=== PATIENT | female | born 1930 | race Caucasian/White ===

== ENCOUNTER 2017-05-22 12:30 | Inpatient (IN) | payer OTHER, MEDICARE ==
--- NOTE | 2017-05-22 12:56 | PDOC ---
History of Present Illness - General Chief Complaint: Irregular Heart Beat Stated Complaint: A-FIB & SHORT OF BREATH Time Seen by Provider: 05/22/17 12:50 History Source: Patient Exam Limitations: No Limitations Past History - Past Medical History Allergies/Adverse Reactions: Allergies Allergy/AdvReac Type Severity Reaction Status Date / Time No Known Allergies Allergy Verified 05/22/17 14:14 Home Medications: Ambulatory Orders Aspirin [Geno Chewable] 81 mg PO HS 05/22/17 Fluoxetine HCl [Prozac] 10 mg PO DAILY 05/22/17 Losartan Potassium [Cozaar -] 50 mg PO HS 05/22/17 Anemia: No Asthma: Yes (DX IN HER 30'S-STABLE) Cancer: Yes (LEFT BREAST CA-DX 2009) Cardiac Disorders: Yes (VALVE DISEASE) CVA: No COPD: No CHF: No Dementia: No Diabetes: No GI Disorders: No Disorders: No HTN: Yes Hypercholesterolemia: Yes (DX 2009) Liver Disease: No Seizures: No Thyroid Disease: Yes (hypo) - Surgical History Abdominal Surgery: Yes Appendectomy: No Cardiac Surgery: Yes (VALVE REPLACED X 2-MECHANICAL -1995 THEN REPLACED FLESH- 2014) Cholecystectomy: Yes (LAP CHOLEY-2011) Lung Surgery: No Neurologic Surgery: No Orthopedic Surgery: No - Immunization History Td Vaccination: Yes TDAP Vaccination: No Immunization Up to Date: Yes - Suicide/Smoking/Psychosocial Hx Smoking Status: No Smoking History: Never smoked Have you smoked in the past 12 months: No Number of Cigarettes Smoked Daily: 0 If you are a former smoker, when did you quit?: 1980 Hx Alcohol Use: No Drug/Substance Use Hx: No Substance Use Type: None Hx Substance Use Treatment: No ED Treatment Course - LABORATORY CBC & Chemistry Diagram: 05/22/17 12:55 05/22/17 12:55 *DC/Admit/Observation/Transfer Diagnosis at time of Disposition: Congestive heart failure Qualifiers: Congestive heart failure type: unspecified congestive heart failure type Congestive heart failure chronicity: acute on chronic Qualified Code(s): I50.9 - Heart failure, unspecified - Discharge Dispostion Condition at time of disposition: Good Admit: Yes Decision to Admit order Date/Time: 05/22/17 16:07
[2017-05-22 13:15] LABS: BASOPHIL 0.8 % (0-2.0); EOSINOPHIL 0.9 % (0-4.5); MCH 28.2 pg (25.7-33.7); MCHC 32.4 g/dl (32.0-36.0); MEAN CELL VOLUME 87.1 fl (80-96); MEAN PLT VOLUME 8.1 fl (7.5-11.1); NEUTROPHILS 83.6 % (42.8-82.8); PLATELET COUNT 187 K/MM3 (134-434); RDW 15.5 % (11.6-15.6); WHITE BLOOD COUNT 4.9 K/mm3 (4.0-10.8)
[2017-05-22 13:30] LABS: ACTIVATED PTT 28.7 SECONDS (24.0-38.9)
[2017-05-22 13:33] LABS: ALBUMIN 3.6 g/dl (3.5-5.0); ALK PHOS 56 U/L (32-92); ANION GAP 5 (8-16); BILIRUBIN,TOTAL 0.4 mg/dl (0.2-1.0); CALCIUM 9.4 mg/dl (8.4-10.2); CO2 29 mmol/L (22-28); CREATININE 0.8 mg/dl (0.6-1.3); GLUCOSE,RANDOM 104 mg/dl (74-106); SGOT/AST 24 U/L (10-42); SGPT/ALT 17 U/L (10-40); TOT PROT 7.1 g/dl (6.4-8.3)
[2017-05-22 13:35] LABS: INR 1.22 (0.82-1.09); PROTHROMBIN TIME (PATIENT) 13.6 SEC (10.2-13.0)
[2017-05-22 15:28] LABS: CPK 3 IU/L (26-192); TROPONIN I (DFP) < 0.03 ng/ml (0.03-0.50)
[2017-05-22] MEDS ORDERED: FUROSEMIDE 40 MG/4 ML INJECTABLE VIAL IVPB ONE (15:38)
[2017-05-22] MEDS ORDERED: FUROSEMIDE 40 MG/4 ML INJECTABLE VIAL ONE (15:42)
[2017-05-22] MEDS ORDERED: ALBUTEROL SO4 0.083% IH SOL 2.5 MG/3 ML VIAL.NEB. NEB PRN (16:10)
[2017-05-22] MEDS ORDERED: ALBUTEROL SO4 18 GM HFA INHALER IH PRN (16:15)
[2017-05-22 17:01] LABS: PH,URINE 6.5 (4.5-8); URINE APPEARANCE Clear; URINE BILIRUBIN Negative (NEGATIVE); URINE BLOOD Trace-lysed (NEGATIVE); URINE COLOR YELLOW; URINE GLUCOSE (UA) Negative (NEGATIVE); URINE KETONE Negative (NEGATIVE); URINE LEUK ESTERASE 2+ (NEGATIVE); URINE NITRITE Negative (NEGATIVE); URINE PROTEIN Negative (NEGATIVE); URINE UROBILINOGEN 0.2 (0.2-1.0)
[2017-05-22 17:21] VITALS: BMI 25.1
[2017-05-22 17:41] LABS: URINE BACTERIA FEW /hpf (NEGATIVE)
[2017-05-22] MEDS: ATORVASTATIN CA 10 MG TABLET (FP) PO SCH (21:29)
[2017-05-22] MEDS: ASPIRIN 81 MG CHEWABLE TABLETS PO SCH (21:29)
[2017-05-22] MEDS ORDERED: HEPARIN NA (PORCINE) 5,000 UNITS/ML 1ML VIAL SQ SCH (22:00)
[2017-05-22] MEDS ORDERED: LOSARTAN POTASSIUM 50 MG TABLET (FP) PO SCH (22:00)
--- NOTE | 2017-05-22 22:23 | HP ---
CHIEF COMPLAINT: SOB PCP: Valerie; Cardio: Chava ([facility] [place]) HISTORY OF PRESENT ILLNESS: This is an 87 year old female with a past medical history significant for CHF, pHTN, HTN, asthma who presented to the ED from her PCP office with SOB, MOE x 4- 5 days. She denies chest pain, palpitations. She reports edema of ankles, L>R which is typical when she develops edema. She denies nausea, vomiting, diarrhea. ER course was notable for: (1) CXR with B/L pleural effusion (2) trop neg (3) BNP 2403 Recent Travel: pt denies Past Medical History Mitral valve disease hyperlipidemia hypertension CHF asthma breast ca Anxiety Past Surgical History Lumpectomy 2010 Cholecystectomy 2012 Aortic dissection repair 2006 Mitral valve surgery x 2 (replacement of infected valve) 2005(mechanical), 2014( bioprosthetic) Cyst removal from neck B/L cataract removal Social History denies tobacco occ glass of wine denies rec drugs Famhx Dad- colon ca, Leukemia GrandMother- Breast ca Aunt - Breast ca Allergies No Known Allergies Allergy (Verified 05/22/17 14:14) Home Medications 3 Medication Instructions Recorded Aspirin [Geno Chewable] 81 mg PO HS 05/22/17 Losartan Potassium [Cozaar -] 50 mg PO HS 05/22/17 Albuterol MDI 2 puff Q4H PRN 05/22/17 Synthroid 25 mcg PO daily 05/22/17 Advair 250/50 1 puff BID 05/22/17 zocor 20 mg po HS 05/22/17 REVIEW OF SYSTEMS CONSTITUTIONAL: Absent: fever, chills, diaphoresis, generalized weakness, malaise, loss of appetite, weight change HEENT: Absent: rhinorrhea, nasal congestion, throat pain, throat swelling, difficulty swallowing, mouth swelling, ear pain, eye pain, visual changes CARDIOVASCULAR: Absent: chest pain, syncope, palpitations, irregular heart rate, lightheadedness , peripheral edema RESPIRATORY: Present: shortness of breath, dyspnea with exertion Absent: cough, orthopnea, wheezing, stridor, hemoptysis GASTROINTESTINAL: Absent: abdominal pain, abdominal distension, nausea, vomiting, diarrhea, constipation, melena, hematochezia GENITOURINARY: Absent: dysuria, frequency, urgency, hesitancy, hematuria, flank pain, genital pain MUSCULOSKELETAL: Absent: myalgia, arthralgia, joint swelling, back pain, neck pain SKIN: Absent: rash, itching, pallor HEMATOLOGIC/IMMUNOLOGIC: Absent: easy bleeding, easy bruising, lymphadenopathy, frequent infections ENDOCRINE: Absent: unexplained weight gain, unexplained weight loss, heat intolerance, cold intolerance NEUROLOGIC: Absent: headache, focal weakness or paresthesias, dizziness, unsteady gait, seizure, mental status changes, bladder or bowel incontinence PSYCHIATRIC: Absent: anxiety, depression, suicidal or homicidal ideation, hallucinations. PHYSICAL EXAMINATION Vital Signs - 24 hr 3 05/22/17 05/22/17 05/22/17 17:02 17:08 20:21 Temperature 98.6 F 97.7 F Pulse Rate 103 H 71 Respiratory 22 19 19 Rate Blood Pressure 156/85 156/85 O2 Sat by Pulse 100 100 100 Oximetry (%) GENERAL: Awake, alert, and fully oriented, in no acute distress. HEAD: Normal with no signs of trauma. EYES: Pupils equal, round and reactive to light, extraocular movements intact, sclera anicteric, conjunctiva clear. No lid lag. EARS, NOSE, THROAT: Ears normal, nares patent, oropharynx clear without exudates. Moist mucous membranes. NECK: Normal range of motion, supple without lymphadenopathy, JVD, or masses. LUNGS: No wheezes. No accessory muscle use. Diminished bilat bases, crackles mid left lung field, clear upper HEART: Regular rate and rhythm, normal S1 and S2 without murmur, rub or gallop. ABDOMEN: Soft, nontender, not distended, normoactive bowel sounds, no guarding, no rebound, no masses. No hepatomegaly or splenomegaly. MUSCULOSKELETAL: Normal range of motion at all joints. No bony deformities or tenderness. No CVA tenderness. UPPER EXTREMITIES: 2+ pulses, warm, well-perfused. No cyanosis. No clubbing. No peripheral edema. LOWER EXTREMITIES: 2+ pulses, warm, well-perfused. No calf tenderness. Tr edema RLL, 1+ left NEUROLOGICAL: Cranial nerves II-XII intact. Normal speech. Normal gait. PSYCHIATRIC: Cooperative. Good eye contact. Appropriate mood and affect. SKIN: Warm, dry, normal turgor, no rashes or lesions noted, normal capillary refill. Laboratory Results - last 24 hr 3 05/22/17 05/22/17 05/22/17 05/22/17 12:55 12:55 12:55 14:47 WBC 4.9 RBC 4.45 Hgb 12.6 Hct 38.8 MCV 87.1 MCH 28.2 MCHC 32.4 RDW 15.5 D Plt Count 187 MPV 8.1 Neutrophils % 83.6 H Lymphocytes % 8.5 D Monocytes % 6.2 Eosinophils % 0.9 Basophils % 0.8 PT with INR 13.6 H INR 1.22 PTT (Actin FS) 28.7 Sodium 140 Potassium 3.9 Chloride 106 Carbon Dioxide 29 H Anion Gap 5 L BUN 21 H D Creatinine 0.8 Creat Clearance w eGFR > 60 Random Glucose 104 Calcium 9.4 Total Bilirubin 0.4 D AST 24 ALT 17 Alkaline Phosphatase 56 D Creatine Kinase 3 L Troponin I < 0.03 L B-Natriuretic Peptide 2403.45 H Total Protein 7.1 Albumin 3.6 Urine Color Urine Appearance Urine pH Ur Specific [place] Urine Protein Urine Glucose (UA) Urine Ketones Urine Blood Urine Nitrite Urine Bilirubin Urine Urobilinogen Urine RBC Urine WBC Urine Bacteria Blood Type A POSITIVE Antibody Screen Negative 3 Urine Color Yellow 05/22/17 16:30 Urine Appearance Clear 05/22/17 16:30 Urine pH 6.5 (4.5-8) 05/22/17 16:30 Ur Specific [place] 1.010 (1.005-1.025) 05/22/17 16:30 Urine Protein Negative (NEGATIVE) 05/22/17 16:30 Urine Glucose (UA) Negative (NEGATIVE) 05/22/17 16:30 Urine Ketones Negative (NEGATIVE) 05/22/17 16:30 Urine Blood Trace-lysed (NEGATIVE) H 05/22/17 16:30 Urine Nitrite Negative (NEGATIVE) 05/22/17 16:30 Urine Bilirubin Negative (NEGATIVE) 05/22/17 16:30 Urine RBC 2-3 /hpf (0-3) 05/22/17 16:30 Urine WBC 10-15 (3-5) 05/22/17 16:30 Urine Bacteria Few /hpf (NEGATIVE) 05/22/17 16:30 ECG Afib with RVR with PVCs vent rate 109, QTC 490 Inverted T lead I, V6, flattened V5 Radiology Results Portable chest x-ray, AP sitting Since 12/19/2015, the cardiac silhouette remains slightly enlarged. Consolidation /airspace disease with small bilateral pleural effusion IMPRESSION: Slight worsening bibasal consolidation/airspace disease and persistent small bilateral pleural effusion Reported By: Humberto Chau MD 05/22/17 3435 ASSESSMENT/PLAN: 87yF with PMH CHF with severely reduced LVSF, HTN, HLD, pHTN, Bioprosthetic mitral valve, asthma, L breast CA s/p lumpectomy, hypothyroidism presented to the ED with SOB x 4-5 days, worse with activity. She is being admitted for CHF exacerbation. CHF exacerbation, systolic - cont lasix 40mg IVP daily - daily weights - cardiology consult - trend troponins, r/o ischemic event that precipitated exacerbation - echo done in ED Afib with RVR-new onset? - pt doesnt recall ever having an irregular heart rate in past - noted on ECG, now in 70s/80s, if HR goes up would start metoprolol. - start lovenox for now. pt will likely need coumadin given valvular disease. Chadsvasc2 score 6 - cont to monitor on tele - cardio consult HTN - cont home cozaar HLD - home simvastatin changed to formulary lipitor Resp: asthma - home advair changed to formulary symbicort - albuterol neb q4h PRN wheezing hypothyroidism - cont home synthroid DVT PPX - on full dose lovenox FEN - Defer IVF, tolerating po and currently appears overloaded - BMP in am - low sodium diet as tolerated Dispo: Pt currently requires inpatient management of her emergent condition. Addendum: 12AM HR up into 140s when pt got up to go to bathroom. Will start metoprolol 25mg x 1 , if HR still elevated with activity @ 6am, will give additional 25mg. Visit type - Emergency Visit Emergency Visit: Yes ED Registration Date: 05/22/17 Care time: The patient presented to the Emergency Department on the above date and was hospitalized for further evaluation of their emergent condition. - New Patient This patient is new to me today: Yes Date on this admission: 05/23/17 - Critical Care Critical Care patient: No
[2017-05-22] MEDS: BUDESONIDE/FORMETEROL FUMARATE 80/4.5 mcg INHALER IH SCH (23:27)
[2017-05-22] MEDS ORDERED: METOPROLOL TARTRATE 25 MG TABLET (FP) PO ONE (23:45)
[2017-05-22] MEDS: ENOXAPARIN NA (PORCINE) 60 MG/0.6 ML DISP.SYRIN SQ SCH (23:53)
[2017-05-23] MEDS: LEVOTHYROXINE NA 25 MCG TABLET (FP) PO SCH (06:22)
[2017-05-23 07:09] LABS: TROPONIN I 0.02 ng/ml (0.00-0.05)
[2017-05-23 07:45] LABS: BASOPHIL 0.7 % (0-2.0); MCH 28.4 pg (25.7-33.7); MCHC 32.3 g/dl (32.0-36.0); MEAN CELL VOLUME 87.9 fl (80-96); MEAN PLT VOLUME 8.1 fl (7.5-11.1); NEUTROPHILS 77.3 % (42.8-82.8); PLATELET COUNT 167 K/MM3 (134-434); RDW 15.5 % (11.6-15.6); WHITE BLOOD COUNT 3.6 K/mm3 (4.0-10.8)
[2017-05-23 08:05] LABS: ALBUMIN 3.2 g/dl (3.5-5.0); ALK PHOS 54 U/L (32-92); ANION GAP 2 (8-16); BILIRUBIN,TOTAL 0.7 mg/dl (0.2-1.0); CALCIUM 9.2 mg/dl (8.4-10.2); CO2 33 mmol/L (22-28); CREATININE 0.8 mg/dl (0.6-1.3); GLUCOSE,RANDOM 95 mg/dl (74-106); MAGNESIUM 1.8 mg/dL (1.8-2.4); SGOT/AST 19 U/L (10-42); SGPT/ALT 17 U/L (10-40); TOT PROT 6.3 g/dl (6.4-8.3)
--- NOTE | 2017-05-23 08:27 | PN ---
Physical Exam: SUBJECTIVE: Patient seen and examined, ambulatory at bedside, HR noted to be 120 's with shortness of breath. OBJECTIVE: patient is a 87 y/o female with a past medical history of hypertension, hyperlipidemia, systolic congestive heart failure. asthma, breast ca, anxiety, Lumpectomy 2009, Cholecystectomy 2011, Aortic dissection repair 2005, Mitral valve surgery x 2 (replacement of infected valve) 2005(mechanical) , 2014(bioprosthetic). Patient was admitted from the emergency department for new onset afib and systolic congestive heart failure. Vital Signs Period Temp Pulse Resp BP Sys/Goldberg Pulse Ox Last 24 Hr 97.7 F-98.6 F 71-103 18-22 123-156/77-88 96-100 GENERAL: The patient is awake, alert, and fully oriented, in no acute distress. HEAD: Normal with no signs of trauma. EYES: PERRL, extraocular movements intact, sclera anicteric, conjunctiva clear. No ptosis. ENT: Ears normal, nares patent, oropharynx clear without exudates, moist mucous membranes. NECK: Trachea midline, full range of motion, supple. LUNGS: Breath sounds equal, clear to auscultation bilaterally to apexes, diminished to bases, no wheezes, no crackles, no accessory muscle use. HEART: irregular rate and rhythm, S1, S2 without murmur, rub or gallop. ABDOMEN: Soft, nontender, nondistended, normoactive bowel sounds, no guarding, no rebound, no hepatosplenomegaly, no masses. EXTREMITIES: 2+ pulses, warm, well-perfused, right lower extremity + 1 left lower extremity + 2 NEUROLOGICAL: Cranial nerves II through XII grossly intact. Normal speech, gait not observed. PSYCH: Normal mood, normal affect. SKIN: Warm, dry, normal turgor, no rashes or lesions noted Laboratory Results - last 24 hr 05/22/17 05/23/17 05/23/17 23:30 00:01 06:30 WBC 3.6 L RBC 4.27 Hgb 12.1 Hct 37.5 MCV 87.9 MCH 28.4 MCHC 32.3 RDW 15.5 Plt Count 167 MPV 8.1 Neutrophils % 77.3 Lymphocytes % 11.3 D Monocytes % 8.7 Eosinophils % 2.0 D Basophils % 0.7 Sodium Potassium Chloride Carbon Dioxide Anion Gap BUN Creatinine Creat Clearance w eGFR Random Glucose Calcium Phosphorus Magnesium Total Bilirubin AST ALT Alkaline Phosphatase Creatine Kinase 75 Cancelled Troponin I 0.02 Cancelled Total Protein Albumin 05/23/17 06:30 WBC RBC Hgb Hct MCV MCH MCHC RDW Plt Count MPV Neutrophils % Lymphocytes % Monocytes % Eosinophils % Basophils % Sodium 140 Potassium 4.3 Chloride 105 Carbon Dioxide 33 H Anion Gap 2 L BUN 18 Creatinine 0.8 Creat Clearance w eGFR > 60 Random Glucose 95 Calcium 9.2 Phosphorus 4.0 Magnesium 1.8 Total Bilirubin 0.7 D AST 19 D ALT 17 Alkaline Phosphatase 54 Creatine Kinase Troponin I Total Protein 6.3 L Albumin 3.2 L Active Medications Generic Name Dose Route Start Last Admin Trade Name Freq PRN Reason Stop Dose Admin Albuterol Sulfate 1 amp 05/22/17 16:10 Ventolin 0.083% Nebulizer Soln - NEB Q4H PRN WHEEZING Aspirin 81 mg 05/22/17 22:00 05/22/17 21:29 Asa - PO 81 mg HS ALE Administration Atorvastatin Calcium 10 mg 05/22/17 22:00 05/22/17 21:29 Lipitor - PO 10 mg HS ALE Administration Budesonide/Formoterol Fumarate 2 puff 05/22/17 22:00 05/22/17 23:27 Symbicort 80/4.5mcg - IH 2 puff BID ALE Administration Enoxaparin Sodium 60 mg 05/22/17 23:45 05/22/17 23:53 Lovenox - SQ 60 mg BID ALE Administration Furosemide 40 mg 05/23/17 10:00 Lasix Injection - IVPUSH DAILY ALE Levothyroxine Sodium 25 mcg 05/23/17 07:00 05/23/17 06:22 Synthroid - PO 25 mcg DAILY@0700 ALE Administration Losartan Potassium 50 mg 05/22/17 22:00 05/22/17 21:30 Cozaar - PO 50 mg HS ALE Administration ASSESSMENT/PLAN: 1) card afib with rvr - pt and daughter deny any prior history of afib, HR noted to be elevated in 120 's, lopressor 25mg ordered - echo reviewed lvef 35-40%, moderate global hypokinesis - continue lovenox 60mg sq bid - appreciate cardiology input acute on chronic systolic congestive heart failure - chest xray reviewed and compared from yesterday, mild improvement of bilateral pleural effusions - continue lasix 40mg ivp, pt weight is down 0.7kg - daily weights and I&O hypertension - continue cozaar since patient has history of dilated cardiomyopathy hyperlipidemia - continue lipitor (subsitute for simvastin) 2) pulm asthma - no acute excerbation at this time, continue symbicort and prn albuterol nebulizers 3) endo hypothyroidism - continue synthroid home dose for now, pending tsh and t4 f/e/n - low sodium diet - replete electrolytes prn ppx - continue lovenox - physical therapy - pepcid - oob - scd Dispo: Pt currently requires inpatient management of her emergent condition. Problem List - Problems (1) Dilated cardiomyopathy Code(s): I42.0 - DILATED CARDIOMYOPATHY (2) Acute on chronic systolic (congestive) heart failure Code(s): I50.23 - ACUTE ON CHRONIC SYSTOLIC (CONGESTIVE) HEART FAILURE (3) Afib Code(s): I48.91 - UNSPECIFIED ATRIAL FIBRILLATION Visit type - Emergency Visit Emergency Visit: Yes ED Registration Date: 05/22/17 Care time: The patient presented to the Emergency Department on the above date and was hospitalized for further evaluation of their emergent condition. - New Patient This patient is new to me today: No - Critical Care Critical Care patient: No - Discharge Referral Referred to [facility] Med [facility] No
[2017-05-23 08:50] LABS: TROPONIN I 0.03 ng/ml (0.00-0.05)
[2017-05-23] MEDS: ENOXAPARIN NA (PORCINE) 60 MG/0.6 ML DISP.SYRIN SQ SCH ×2 (09:54→21:54)
[2017-05-23] MEDS ORDERED: PT OWN MED DRAWER 7, Y5N ONE ×2 (09:59→21:14)
[2017-05-23] MEDS ORDERED: FUROSEMIDE 40 MG/4 ML INJECTABLE VIAL IVPUSH SCH (10:00)
[2017-05-23] MEDS ORDERED: FLUoxetine HCL 10 MG CAPSULE (FP) PO SCH (10:00)
[2017-05-23] MEDS: BUDESONIDE/FORMETEROL FUMARATE 80/4.5 mcg INHALER IH SCH ×2 (10:05→21:54)
[2017-05-23] MEDS ORDERED: METOPROLOL SUCCINATE 25 MG TAB.SR.24H (FP) PO SCH (13:15)
[2017-05-23 13:25] LABS: THYROXINE (T4) 6.8 ug/dl (4.8-13.9)
[2017-05-23 13:31] LABS: THYROID STIMULATING HORMONE 3.16 uIU/ml (0.358-3.74)
--- NOTE | 2017-05-23 14:01 | CONSULT ---
Consult Consult Specialty:: Cardiology Referred by:: Dorinda Andrew Reason for Consultation:: CHF and new afib - History of Present Illness Chief Complaint: MOE History of Present Illness: 87 yo female with hx of HTN, HLD, aortic dissection -> repaired in 03/06, MR -> mechanical MVR in 05/07 -> IE -> redo bio-MVR in 09/[address] Lofton at [facility], asthma with chronic MOE, intermittent SEAN -. lasix prn, CHF -. admitted here in 06/15 -> EF was 26% -> here with 5 days of worsening MOE and SEAN. She denies CP, palpitations or dizziness She first went into Dr Padilla's office -. found in afib -. sent here here. Found with evidence of CHF -. IV diuretics. Currently a bit better. 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 Right diaphragm paralysis following thoracotomy - Past Surgical History Past Surgical History: Yes: Cataract Removal (B/L ), Cholecystectomy (@012) Additional Surgical History: Aortic dissection repair 2005. Lumpectomy 2009. Cyst removal from neck - Alcohol/Substance Use Hx Alcohol Use: Yes (rarely) - Smoking History Smoking history: Former smoker (smoked socially but second hand smoking from ) Have you smoked in the past 12 months: No Aproximately how many cigarettes per day: 0 If you are a former smoker, when did you quit?: 1986 - Social History Usual Living Arrangement: Alone ( for 30 yrs) Home Medications - Allergies Allergies/Adverse Reactions: Allergies Allergy/AdvReac Type Severity Reaction Status Date / Time No Known Allergies Allergy Verified 05/22/17 14:14 - Home Medications Home Medications: Ambulatory Orders Aspirin [Geno Chewable] 81 mg PO HS 05/22/17 Fluoxetine HCl [Prozac] 10 mg PO DAILY 05/22/17 Losartan Potassium [Cozaar -] 50 mg PO HS 05/22/17 Family Disease History - Family Disease History Family History: Unremarkable Review of Systems - Review of Systems Constitutional: reports: Other (fatigue) Eyes: reports: No Symptoms HENT: reports: No Symptoms Neck: reports: No Symptoms Cardiovascular: reports: Edema, Shortness of Breath Respiratory: reports: SOB on Exertion Gastrointestinal: reports: No Symptoms Genitourinary: reports: No Symptoms Integumentary: reports: No Symptoms Neurological: reports: No Symptoms Endocrine: reports: No Symptoms Psychiatric: reports: Anxiety Physical Exam Vital Signs: Vital Signs Temperature 98 F 05/23/17 09:39 Pulse Rate 86 05/23/17 09:39 Respiratory Rate 20 05/23/17 09:39 Blood Pressure 102/52 05/23/17 09:39 O2 Sat by Pulse Oximetry (%) 96 05/23/17 07:45 Constitutional: Yes: No Distress Eyes: Yes: Conjunctiva Clear HENT: Yes: Atraumatic Neck: Yes: Supple Cardiovascular: Yes: Pulse Irregular, Murmur Respiratory: Yes: Other (decresaed at bases) Gastrointestinal: Yes: Normal Bowel Sounds, Soft. No: Tenderness Edema: Yes (trace, L> R (baseline)) Peripheral Pulses WNL: Yes Neurological: Yes: Alert, Oriented Psychiatric: Yes: Alert, Oriented Labs: CBC, BMP 05/23/17 06:30 05/23/17 06:30 Imaging - Results Chest X-ray: Report Reviewed, Image Reviewed EKG: Report Reviewed, Image Reviewed (atrial fibrillation, NSST-T changes) Other: Other (Echo (05/22/17) -> Nl Lv size wit EF 35-40%. global HK. Mild conc LVH . Mild RV dysfunction. Mod AV scl with mod AI. Bio MVR with possible stenosis . Midl TR. Tr PI. Mild PHTN) Assessment/Plan 87 yo female with the above history, here with CHF and new onset afib. The etiology of the CHF is likely combined systolic and diastolic in setting of rapid afib. There in no evidence of ACS HR better, but goes up when ambulates. TSH normal Patient is high risk and should be on chronic AC - needs coumadin (not a newer agent) given the valvular nature of her afib -> INR goal 2-3 Diuresing -. repeat CXR today is better Would benefit from coreg and aldactone Rec: Continue lovenox Start coumadin -> INR goal 2-5 -. coumadin 10 mg today -. 5mg daily Continue lasix 40 IV for now -> consider switching to PO lasix 40 tomorrow based on clinical status D/c metoprolol Start coreg 6.25 bid -. titrate up prn Aldactone 25 daily Continue cozaar, but reduce to 25 daily, as BP may not tolerate t e50 mg given the coreg/aldactone Cont ASA and lipitor Thanks! We'll follow! D/w Dr Kyler Larsen ([phone])
[2017-05-23] MEDS ORDERED: LOSARTAN POTASSIUM 50 MG TABLET (FP) PO SCH (15:03)
[2017-05-23] MEDS ORDERED: WARFARIN NA 10 MG TABLET (FP) PO ONE (15:04)
[2017-05-23] MEDS: MAGNESIUM OXIDE 400 MG TABLET (FP) PO SCH (21:53)
[2017-05-23] MEDS: FAMOTIDINE 20 MG TABLET PO SCH (21:54)
[2017-05-23] MEDS: CARVEDILOL 6.25 MG TABLET (FP) PO SCH (21:54)
[2017-05-23] MEDS: ATORVASTATIN CA 10 MG TABLET (FP) PO SCH (21:54)
[2017-05-23] MEDS: ASPIRIN 81 MG CHEWABLE TABLETS PO SCH (21:54)
[2017-05-23] MEDS: LOSARTAN POTASSIUM 25 MG TABLET PO SCH (21:54)
[2017-05-24] MEDS: LEVOTHYROXINE NA 25 MCG TABLET (FP) PO SCH (06:24)
[2017-05-24 07:38] LABS: BASOPHIL 0.5 % (0-2.0); EOSINOPHIL 1.3 % (0-4.5); MCH 28.7 pg (25.7-33.7); MCHC 32.6 g/dl (32.0-36.0); MEAN PLT VOLUME 7.9 fl (7.5-11.1); NEUTROPHILS 75.5 % (42.8-82.8); PLATELET COUNT 156 K/MM3 (134-434); RDW 14.9 % (11.6-15.6); WHITE BLOOD COUNT 3.8 K/mm3 (4.0-10.8)
[2017-05-24 08:11] LABS: ANION GAP 4 (8-16); CALCIUM 9.1 mg/dl (8.4-10.2); CO2 34 mmol/L (22-28); CREATININE 0.8 mg/dl (0.6-1.3); GLUCOSE,RANDOM 96 mg/dl (74-106); MAGNESIUM 1.9 mg/dL (1.8-2.4); PHOSPHOROUS 4.1 mg/dl (2.5-4.6)
[2017-05-24] MEDS ORDERED: PT OWN MED DRAWER 7, Y5N ONE ×2 (10:09→21:02)
[2017-05-24] MEDS: BUDESONIDE/FORMETEROL FUMARATE 80/4.5 mcg INHALER IH SCH ×2 (10:23→21:06)
[2017-05-24] MEDS: ENOXAPARIN NA (PORCINE) 60 MG/0.6 ML DISP.SYRIN SQ SCH ×2 (10:23→21:06)
[2017-05-24] MEDS: FAMOTIDINE 20 MG TABLET PO SCH ×2 (10:23→21:05)
[2017-05-24] MEDS: CARVEDILOL 6.25 MG TABLET (FP) PO SCH ×2 (10:24→21:05)
[2017-05-24] MEDS: MAGNESIUM OXIDE 400 MG TABLET (FP) PO SCH ×2 (10:24→21:06)
[2017-05-24] MEDS: SPIRONOLACTONE 25 MG TABLET (FP) PO SCH (10:26)
--- NOTE | 2017-05-24 10:26 | PN ---
Physical Exam: SUBJECTIVE: Patient seen and examined. Feeling better. Only with mild dyspnea. No chest pain. Has been able to ambulate to bathroom. OBJECTIVE: Vital Signs Period Temp Pulse Resp BP Sys/Goldberg Pulse Ox Last 24 Hr 97.7 F-98.3 F 75-86 17-20 99-150/56-87 91-100 GENERAL: The patient is awake, alert, and fully oriented, in no acute distress. HEAD: Normal with no signs of trauma. EYES: PERRL, extraocular movements intact, sclera anicteric, conjunctiva clear. No ptosis. ENT: Ears normal, nares patent, oropharynx clear without exudates, moist mucous membranes. NECK: Trachea midline, full range of motion, supple. LUNGS: Rales at bases. No tachypnea or accessory muscle use. HEART: Irregular rhythm, systolic murmur, S1, S2. ABDOMEN: Soft, nontender, nondistended, normoactive bowel sounds, no guarding, no rebound, no hepatosplenomegaly, no masses. EXTREMITIES: 2+ pulses, warm, well-perfused, trace LE edema. NEUROLOGICAL: Cranial nerves II through XII grossly intact. Normal speech, gait not observed. PSYCH: Normal mood, normal affect. SKIN: Warm, dry, normal turgor, no rashes or lesions noted Laboratory Results - last 24 hr 05/23/17 05/24/17 05/24/17 06:30 07:20 07:20 WBC 3.8 L RBC 4.18 Hgb 12.0 Hct 36.8 MCV 88.0 MCH 28.7 MCHC 32.6 RDW 14.9 Plt Count 156 MPV 7.9 Neutrophils % 75.5 Lymphocytes % 11.6 Monocytes % 11.1 H Eosinophils % 1.3 Basophils % 0.5 Sodium 138 Potassium 3.8 Chloride 100 Carbon Dioxide 34 H Anion Gap 4 L BUN 23 H D Creatinine 0.8 Random Glucose 96 Calcium 9.1 Phosphorus 4.1 Magnesium 1.9 TSH 3.16 D Active Medications Generic Name Dose Route Start Last Admin Trade Name Freq PRN Reason Stop Dose Admin Albuterol Sulfate 1 amp 05/22/17 16:10 Ventolin 0.083% Nebulizer Soln - NEB Q4H PRN WHEEZING Aspirin 81 mg 05/22/17 22:00 05/23/17 21:54 Asa - PO 81 mg HS ALE Administration Atorvastatin Calcium 10 mg 05/22/17 22:00 05/23/17 21:54 Lipitor - PO 10 mg HS ALE Administration Budesonide/Formoterol Fumarate 2 puff 05/22/17 22:00 05/24/17 10:23 Symbicort 80/4.5mcg - IH 2 puff BID ALE Administration Carvedilol 6.25 mg 05/23/17 22:00 05/24/17 10:24 Coreg - PO 6.25 mg BID ALE Administration Enoxaparin Sodium 60 mg 05/22/17 23:45 05/24/17 10:23 Lovenox - SQ 60 mg BID ALE Administration Famotidine 20 mg 05/23/17 22:00 05/24/17 10:23 Pepcid - PO 20 mg BID ALE Administration Furosemide 40 mg 05/24/17 10:30 Lasix - PO DAILY [facility] Levothyroxine Sodium 25 mcg 05/23/17 07:00 05/24/17 06:24 Synthroid - PO 25 mcg DAILY@0700 [facility] Administration Losartan Potassium 25 mg 05/23/17 22:00 05/23/17 21:54 Cozaar - PO 25 mg HS ALE Administration Magnesium Oxide 400 mg 05/23/17 22:00 05/24/17 10:24 Mag-Ox - PO 400 mg BID [facility] Administration Spironolactone 25 mg 05/24/17 10:00 Aldactone - PO DAILY [facility] Warfarin Sodium 5 mg 05/24/17 18:00 Coumadin - PO DAILY@1800 ALE CXR 05/22: Pulm vascular congestion, small pleural effusion, bibasilar consolidation. 05/23: Improvement. Echo 05/22: -> Nl Lv size wit EF 35-40%. global HK. Mild conc LVH . Mild RV dysfunction. Mod AV scl with mod AI. 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 Midl TR. Tr PI. Mild PHTN. ASSESSMENT/PLAN: 1. New onset Afib with RVR -Continue warfarin with Lovenox bridge -Continue Coreg -Aldactone ordered but so far we have not been able to give it because of low SBP, despite decreasing dose of Cozaar -Weight down 1kg since admission -Cardiology following 2. CHF -Change from IV to PO Lasix today 3. CAD -Continue ASA, Lipitor 4. HTN -As above 5. Asthma -Continue Symbicort -Prn nebulizers 6. Hypothyroidism -Continue Synthroid 7. F/E/N -Low sodium diet 8. Ppx -Lovenox/warfarin -PT -No indication for GI ppx Dispo: Pt currently requires inpatient management of her emergent condition.
[2017-05-24] MEDS: FUROSEMIDE 40 MG TABLET (FP) PO SCH (10:27)
--- NOTE | 2017-05-24 11:21 | PN ---
Progress Note, Physician Chief Complaint: Feels better - Current Medication List Current Medications: Active Medications Albuterol Sulfate (Ventolin 0.083% Nebulizer Soln -) 1 amp NEB Q4H PRN PRN Reason: WHEEZING Aspirin (Asa -) 81 mg PO [facility] Last Admin: 05/23/17 21:54 Dose: 81 mg Atorvastatin Calcium (Lipitor -) 10 mg PO HS [facility] Last Admin: 05/23/17 21:54 Dose: 10 mg Budesonide/Formoterol Fumarate (Symbicort 80/4.5mcg -) 2 puff IH BID [facility] Last Admin: 05/24/17 10:23 Dose: 2 puff Carvedilol (Coreg -) 6.25 mg PO BID [facility] Last Admin: 05/24/17 10:24 Dose: 6.25 mg Enoxaparin Sodium (Lovenox -) 60 mg SQ BID [facility] Last Admin: 05/24/17 10:23 Dose: 60 mg Famotidine (Pepcid -) 20 mg PO BID [facility] Last Admin: 05/24/17 10:23 Dose: 20 mg Furosemide (Lasix -) 40 mg PO DAILY [facility] Last Admin: 05/24/17 10:27 Dose: 40 mg Levothyroxine Sodium (Synthroid -) 25 mcg PO DAILY@0700 [facility] Last Admin: 05/24/17 06:24 Dose: 25 mcg Losartan Potassium (Cozaar -) 25 mg PO [facility] Last Admin: 05/23/17 21:54 Dose: 25 mg Magnesium Oxide (Mag-Ox -) 400 mg PO BID [facility] Last Admin: 05/24/17 10:24 Dose: 400 mg Spironolactone (Aldactone -) 25 mg PO DAILY [facility] Last Admin: 05/24/17 10:26 Dose: Not Given Warfarin Sodium (Coumadin -) 5 mg PO DAILY@1800 [facility] - Objective Vital Signs: Vital Signs Temperature 98 F 05/24/17 10:21 Pulse Rate 76 05/24/17 10:21 Respiratory Rate 18 05/24/17 10:21 Blood Pressure 99/56 05/24/17 10:21 O2 Sat by Pulse Oximetry (%) 97 05/24/17 02:00 Constitutional: Yes: No Distress Eyes: Yes: Conjunctiva Clear HENT: No: Atraumatic Neck: Yes: Supple Cardiovascular: Yes: Pulse Irregular Respiratory: No: Rales, Rhonchi Gastrointestinal: Yes: Normal Bowel Sounds, Soft Edema: Yes (tarce) Peripheral Pulses WNL: Yes Neurological: Yes: Alert, Oriented Psychiatric: Yes: Alert, Oriented Labs: CBC, BMP 05/24/17 07:20 05/24/17 07:20 INR, PTT INR 1.22 (0.82-1.09) 05/22/17 12:55 Assessment/Plan 87 yo female with the above history, here with CHF and new onset afib. The etiology of the CHF is likely combined systolic and diastolic in setting of rapid afib. There in no evidence of ACS HR better, but goes up when ambulates. TSH normal Patient is high risk and should be on chronic AC - needs coumadin (not a newer agent) given the valvular nature of her afib -> INR goal 2-3 Diuresing -. repeat CXR yesterday is better Would benefit from coreg and aldactone 05/24/17 BP a bit too low to tolerate aldactone HR seems better overall Rec: Continue lovenox Cont coumadin 5/d -> INR goal 2-3 Ak to proceed with PO lasix 40 Cont coreg 6.25 bid -. titrate up prn Aldactone 25 daily as tolerated Continue cozaar at 25 daily Cont ASA and lipitor If HR goes up with more ambulation, may need to add dig.given lowish BPs D/w IM
[2017-05-24] MEDS: WARFARIN NA 5 MG TABLET (UD) PO SCH (17:54)
[2017-05-24] MEDS: ATORVASTATIN CA 10 MG TABLET (FP) PO SCH (21:05)
[2017-05-24] MEDS: ASPIRIN 81 MG CHEWABLE TABLETS PO SCH (21:05)
[2017-05-24] MEDS: LOSARTAN POTASSIUM 25 MG TABLET PO SCH (21:05)
[2017-05-25] MEDS: LEVOTHYROXINE NA 25 MCG TABLET (FP) PO SCH (06:54)
[2017-05-25 08:56] LABS: BASOPHIL 0.7 % (0-2.0); EOSINOPHIL 1.9 % (0-4.5); MCH 28.4 pg (25.7-33.7); MCHC 32.6 g/dl (32.0-36.0); MEAN CELL VOLUME 87.2 fl (80-96); MEAN PLT VOLUME 8.6 fl (7.5-11.1); NEUTROPHILS 74.8 % (42.8-82.8); PLATELET COUNT 162 K/MM3 (134-434); RDW 15.3 % (11.6-15.6); WHITE BLOOD COUNT 3.8 K/mm3 (4.0-10.8)
[2017-05-25 09:09] LABS: INR 1.8 (0.82-1.09); PROTHROMBIN TIME (PATIENT) 19.9 SEC (10.2-13.0)
--- NOTE | 2017-05-25 09:23 | PN ---
Physical Exam: SUBJECTIVE: Patient seen and examined. Feels better; no dyspnea. OBJECTIVE: Vital Signs Period Temp Pulse Resp BP Sys/Goldberg Pulse Ox Last 24 Hr 97.9 F-98.4 F 73-82 18-20 99-137/56-84 97-97 GENERAL: The patient is awake, alert, and fully oriented, in no acute distress. HEAD: Normal with no signs of trauma. EYES: PERRL, extraocular movements intact, sclera anicteric, conjunctiva clear. No ptosis. ENT: Ears normal, nares patent, oropharynx clear without exudates, moist mucous membranes. NECK: Trachea midline, full range of motion, supple. LUNGS: Breath sounds equal, clear to auscultation bilaterally, no wheezes, no crackles, no accessory muscle use. HEART: Irregular rhythm, systolic murmur, S1/S2. ABDOMEN: Soft, nontender, nondistended, normoactive bowel sounds, no guarding, no rebound, no hepatosplenomegaly, no masses. EXTREMITIES: 2+ pulses, warm, well-perfused, no edema. NEUROLOGICAL: Cranial nerves II through XII grossly intact. Normal speech, gait not observed. PSYCH: Normal mood, normal affect. SKIN: Warm, dry, normal turgor, no rashes or lesions noted Laboratory Results - last 24 hr 05/25/17 05/25/17 06:40 06:40 WBC 3.8 L RBC 4.14 Hgb 11.8 Hct 36.1 MCV 87.2 MCH 28.4 MCHC 32.6 RDW 15.3 Plt Count 162 MPV 8.6 Neutrophils % 74.8 Lymphocytes % 12.4 Monocytes % 10.2 Eosinophils % 1.9 Basophils % 0.7 PT with INR 19.9 H INR 1.80 H D Active Medications Generic Name Dose Route Start Last Admin Trade Name Freq PRN Reason Stop Dose Admin Albuterol Sulfate 1 amp 05/22/17 16:10 Ventolin 0.083% Nebulizer Soln - NEB Q4H PRN WHEEZING Aspirin 81 mg 05/22/17 22:00 05/24/17 21:05 Asa - PO 81 mg HS ALE Administration Atorvastatin Calcium 10 mg 05/22/17 22:00 05/24/17 21:05 Lipitor - PO 10 mg HS ALE Administration Budesonide/Formoterol Fumarate 2 puff 05/22/17 22:00 05/24/17 21:06 Symbicort 80/4.5mcg - IH 2 puff BID ALE Administration Carvedilol 6.25 mg 05/23/17 22:00 05/24/17 21:05 Coreg - PO 6.25 mg BID ALE Administration Enoxaparin Sodium 60 mg 05/22/17 23:45 05/24/17 21:06 Lovenox - SQ 60 mg BID ALE Administration Famotidine 20 mg 05/23/17 22:00 05/24/17 21:05 Pepcid - PO 20 mg BID ALE Administration Furosemide 40 mg 05/24/17 10:30 05/24/17 10:27 Lasix - PO 40 mg DAILY ALE Administration Levothyroxine Sodium 25 mcg 05/23/17 07:00 05/25/17 06:54 Synthroid - PO 25 mcg DAILY@0700 ALE Administration Losartan Potassium 25 mg 05/23/17 22:00 05/24/17 21:05 Cozaar - PO 25 mg HS ALE Administration Magnesium Oxide 400 mg 05/23/17 22:00 05/24/17 21:06 Mag-Ox - PO 400 mg BID ALE Administration Spironolactone 25 mg 05/24/17 10:00 05/24/17 10:26 Aldactone - PO Not Given DAILY [facility] Warfarin Sodium 5 mg 05/24/17 18:00 05/24/17 17:54 Coumadin - PO 5 mg DAILY@1800 ALE Administration CXR 05/22: Pulm vascular congestion, small pleural effusion, bibasilar consolidation. 05/23: Improvement. 05/24 No change. Echo 05/22: -> Nl Lv size wit EF 35-40%. global HK. Mild conc LVH . Mild RV dysfunction. Mod AV scl with mod AI. 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 Midl TR. Tr PI. Mild PHTN. ASSESSMENT/PLAN: 1. New onset Afib with RVR -Continue warfarin with Lovenox bridge -Continue Coreg -Start Aldactone -Weight down 1kg since admission -Cardiology following 2. CHF -Appears euvolemic today, dyspnea resolved -Continue PO Lasix 3. CAD -Continue ASA, Lipitor 4. HTN -As above 5. Asthma -Continue Symbicort -Prn nebulizers 6. Hypothyroidism -Continue Synthroid 7. F/E/N -Low sodium diet 8. Ppx -Lovenox/warfarin -PT -No indication for GI ppx Dispo: Pt currently requires inpatient management of her emergent condition.
[2017-05-25 09:26] LABS: ALBUMIN 3.1 g/dl (3.5-5.0); ALK PHOS 48 U/L (32-92); ANION GAP 5 (8-16); BILIRUBIN,TOTAL 0.6 mg/dl (0.2-1.0); CALCIUM 8.9 mg/dl (8.4-10.2); CO2 33 mmol/L (22-28); CREATININE 0.7 mg/dl (0.6-1.3); GLUCOSE,RANDOM 93 mg/dl (74-106); SGOT/AST 17 U/L (10-42); SGPT/ALT 14 U/L (10-40)
[2017-05-25] MEDS: CARVEDILOL 6.25 MG TABLET (FP) PO SCH ×2 (09:39→21:11)
[2017-05-25] MEDS: MAGNESIUM OXIDE 400 MG TABLET (FP) PO SCH ×2 (09:39→21:11)
[2017-05-25] MEDS: FUROSEMIDE 40 MG TABLET (FP) PO SCH (09:39)
[2017-05-25] MEDS: SPIRONOLACTONE 25 MG TABLET (FP) PO SCH (09:39)
[2017-05-25] MEDS: ENOXAPARIN NA (PORCINE) 60 MG/0.6 ML DISP.SYRIN SQ SCH ×2 (09:40→21:11)
[2017-05-25] MEDS: FAMOTIDINE 20 MG TABLET PO SCH ×2 (09:40→21:11)
[2017-05-25] MEDS: BUDESONIDE/FORMETEROL FUMARATE 80/4.5 mcg INHALER IH SCH ×2 (09:40→21:11)
[2017-05-25] MEDS: WARFARIN NA 5 MG TABLET (UD) PO SCH (17:18)
[2017-05-25] MEDS ORDERED: PT OWN MED DRAWER 7, Y5N ONE (21:06)
[2017-05-25] MEDS: LOSARTAN POTASSIUM 25 MG TABLET PO SCH (21:11)
[2017-05-25] MEDS: ATORVASTATIN CA 10 MG TABLET (FP) PO SCH (21:11)
[2017-05-25] MEDS: ASPIRIN 81 MG CHEWABLE TABLETS PO SCH (21:11)
[2017-05-26] MEDS: LEVOTHYROXINE NA 25 MCG TABLET (FP) PO SCH (06:43)
[2017-05-26 08:53] LABS: BASOPHIL 0.4 % (0-2.0); EOSINOPHIL 1.8 % (0-4.5); MCH 27.6 pg (25.7-33.7); MCHC 32.1 g/dl (32.0-36.0); NEUTROPHILS 80.5 % (42.8-82.8); PLATELET COUNT 197 K/MM3 (134-434); RDW 14.9 % (11.6-15.6); WHITE BLOOD COUNT 4.2 K/mm3 (4.0-10.8)
[2017-05-26 09:11] LABS: INR 2.06 (0.82-1.09); PROTHROMBIN TIME (PATIENT) 22.7 SEC (10.2-13.0)
[2017-05-26 09:12] LABS: ANION GAP 7 (8-16); CALCIUM 9.4 mg/dl (8.4-10.2); CO2 32 mmol/L (22-28); CREATININE 0.8 mg/dl (0.6-1.3); GLUCOSE,RANDOM 148 mg/dl (74-106)
--- NOTE | 2017-05-26 09:51 | PN ---
Physical Exam: SUBJECTIVE: Patient seen and examined. Uneventful overnight. No c/o of dyspnea , cough, shortness of breath and states lower leg edema improved. OBJECTIVE: Vital Signs Period Temp Pulse Resp BP Sys/Goldberg Pulse Ox Last 24 Hr 97.6 F-98 F 66-84 18-20 116-139/55-78 90-98 GENERAL: The patient is awake, alert, and fully oriented, in no acute distress. HEAD: Normal with no signs of trauma. NECK: Trachea midline, full range of motion, supple. LUNGS: Breath sounds equal, clear to auscultation bilaterally, no wheezes, no crackles, no accessory muscle use. HEART: New onset AF with a rate 90 and with activity 140, holter monitor in place. ABDOMEN: Soft, nontender, nondistended, normoactive bowel sounds, no guarding, no rebound, no hepatosplenomegaly, no masses. EXTREMITIES: 2+ pulses, warm, well-perfused, +1 edema. Left is greater then right NEUROLOGICAL: Normal speech, gait stable PSYCH: Normal mood, normal affect. SKIN: Warm, dry, normal turgor, no rashes or lesions noted Laboratory Results - last 24 hr 05/26/17 05/26/17 08:30 08:30 WBC 4.2 RBC 4.59 Hgb 12.7 Hct 39.5 MCV 86.0 MCH 27.6 MCHC 32.1 RDW 14.9 Plt Count 197 D MPV 8.0 Neutrophils % 80.5 Lymphocytes % 9.9 D Monocytes % 7.4 Eosinophils % 1.8 Basophils % 0.4 PT with INR 22.7 H INR 2.06 H Active Medications Generic Name Dose Route Start Last Admin Trade Name Freq PRN Reason Stop Dose Admin Albuterol Sulfate 1 amp 05/22/17 16:10 Ventolin 0.083% Nebulizer Soln - NEB Q4H PRN WHEEZING Aspirin 81 mg 05/22/17 22:00 05/25/17 21:11 Asa - PO 81 mg HS ALE Administration Atorvastatin Calcium 10 mg 05/22/17 22:00 05/25/17 21:11 Lipitor - PO 10 mg HS ALE Administration Budesonide/Formoterol Fumarate 2 puff 05/22/17 22:00 05/25/17 21:11 Symbicort 80/4.5mcg - IH 2 puff BID ALE Administration Carvedilol 12.5 mg 05/26/17 10:00 Coreg - PO BID ALE Famotidine 20 mg 05/23/17 22:00 05/25/17 21:11 Pepcid - PO 20 mg BID ALE Administration Furosemide 40 mg 05/24/17 10:30 05/25/17 09:39 Lasix - PO 40 mg DAILY [facility]EL Administration Levothyroxine Sodium 25 mcg 05/23/17 07:00 05/26/17 06:43 Synthroid - PO 25 mcg DAILY@0700 ALE Administration Losartan Potassium 25 mg 05/23/17 22:00 05/25/17 21:11 Cozaar - PO 25 mg HS ALE Administration Magnesium Oxide 400 mg 05/23/17 22:00 05/25/17 21:11 Mag-Ox - PO 400 mg BID ALE Administration Spironolactone 25 mg 05/24/17 10:00 05/25/17 09:39 Aldactone - PO 25 mg DAILY ALE Administration Warfarin Sodium 5 mg 05/24/17 18:00 05/25/17 17:18 Coumadin - PO 5 mg DAILY@1800 ALE Administration ASSESSMENT/PLAN: 1. New onset Afib with RVR -INR now 2.06, continue with coumadin and d/c lovenox -increase coreg for HR up to the 140 (spoke with cardiology) -continue with aldactone -Weight down 5.3 lbs (2.4 kg) since admission -Cardiology following 2. CHF -Appears euvolemic today, dyspnea resolved -Continue PO Lasix 3. CAD -Continue ASA, Lipitor 4. HTN -As above 5. Asthma -Continue Symbicort -Prn nebulizers 6. Hypothyroidism -Continue Synthroid 7. F/E/N -Low sodium diet 8. Ppx -warfarin -PT Dispo: Pt currently requires inpatient management of her emergent condition. Will discuss with cardiology re: elevated heart rate and recent increase of coreg for length of time for observing on holter. pt now therapeutic on coumadin. Will continue. Visit type - Emergency Visit Emergency Visit: Yes ED Registration Date: 05/22/17 Care time: The patient presented to the Emergency Department on the above date and was hospitalized for further evaluation of their emergent condition. - New Patient This patient is new to me today: Yes Date on this admission: 05/26/17 - Critical Care Critical Care patient: No - Discharge Referral Referred to [facility] No
[2017-05-26] MEDS ORDERED: CARVEDILOL 12.5 MG TABLET (FP) PO SCH (10:00)
[2017-05-26] MEDS ORDERED: PT OWN MED DRAWER 7, Y5N ONE (10:12)
[2017-05-26] MEDS: FAMOTIDINE 20 MG TABLET PO SCH (10:21)
[2017-05-26] MEDS: MAGNESIUM OXIDE 400 MG TABLET (FP) PO SCH (10:21)
[2017-05-26] MEDS: SPIRONOLACTONE 25 MG TABLET (FP) PO SCH (10:21)
[2017-05-26] MEDS: FUROSEMIDE 40 MG TABLET (FP) PO SCH (10:22)
[2017-05-26] MEDS: BUDESONIDE/FORMETEROL FUMARATE 80/4.5 mcg INHALER IH SCH (10:29)
[2017-05-26 13:16] VITALS: BP 107/73; PULSE 95; TEMP 97.8
--- NOTE | 2017-05-27 20:59 | EKG ---
Test Reason : Blood Pressure : / mmHG Vent. Rate : 109 BPM Atrial Rate : 107 BPM P-R Int : 000 ms QRS Dur : 118 ms QT Int : 364 ms P-R-T Axes : 000 -05 117 degrees QTc Int : 490 ms ATRIAL FIBRILLATION WITH RAPID VENTRICULAR RESPONSE WITH PREMATURE VENTRICULAR OR ABERRANTLY CONDUCTED COMPLEXES NON-SPECIFIC INTRA-VENTRICULAR CONDUCTION DELAY ABNORMAL ECG NO PREVIOUS ECGS AVAILABLE NO CLINICAL INFORMATION IS AVAILABLE REPEAT EKG IF CLINICALLY INDICATED Confirmed by ALLA NIX MD ([id number]) on 05/27/2017 8:59:21 PM Referred By: MD MERCER Confirmed By:ALLA NIX MD
== END 2017-05-26 14:21 | disposition home or self-care (01) | DRG 308 ==
LOC: FER 12:30 → FM/S 16:33
PROVIDERS: ADMIT Internal Medicine; ATTEND Nurse Practitioner Family
DX: I48.91 Unspecified atrial fibrillation (principal); I50.43 Acute on chronic combined systolic (congestive) and diastolic (congestive) heart failure; E78.00 Pure hypercholesterolemia, unspecified; E03.9 Hypothyroidism, unspecified; I27.2 Other secondary pulmonary hypertension; J45.909 Unspecified asthma, uncomplicated; I25.10 Atherosclerotic heart disease of native coronary artery without angina pectoris; F41.8 Other specified anxiety disorders; I42.0 Dilated cardiomyopathy; I34.0 Nonrheumatic mitral (valve) insufficiency; I11.0 Hypertensive heart disease with heart failure; Z95.2 Presence of prosthetic heart valve; Z85.3 Personal history of malignant neoplasm of breast; Z87.891 Personal history of nicotine dependence
CPT/HCPCS: 36415; 71010-TC; 80048; 80053; 81003; 81015; 83735; 83880; 84100; 84436; 84443; 84484; 85025; 85610; 85730; 86850; 86900; 86901; 93005; 93306-TC; 97116-GP; 97161-GP; 99285-25; J1644

== ENCOUNTER 2017-06-21 09:54 | Emergency (ER) | payer OTHER, MEDICARE ==
--- NOTE | 2017-06-21 10:03 | PDOC ---
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 The t has been following up with dr. padilla and having her INR rechecked, it was last determined to be 5, and she held her dose yesterday. Patient states that when she woke up this morning to pressure T she spit out some brown phlegm. she denies any hemoptysis, cough, bleeding when she is brushing her teeth. she denies any vag bleeding, easy bruising, hematuria, black or red stool, though she states when she is wiping after a bm there was a bit of blood on the tissue but non in stool. pt denies taking any new meds, denies cp, dizziness, lightheadedness, sob, palpitations, bolton, le edema. Timing/Duration: unsure Past History - Past Medical History Allergies/Adverse Reactions: Allergies Allergy/AdvReac Type Severity Reaction Status Date / Time No Known Allergies Allergy Verified 06/21/17 09:57 Home Medications: Ambulatory Orders Aspirin [Geno Chewable Aspirin] 81 mg PO DAILY 05/22/17 Losartan Potassium [Cozaar -] 50 mg PO DAILY 05/22/17 Carvedilol [Coreg -] 12.5 mg PO BID #30 tablet 05/26/17 Famotidine [Pepcid -] 20 mg PO BID tablet 05/26/17 Furosemide [Lasix -] 40 mg PO DAILY tablet 05/26/17 Spironolactone [Aldactone -] 25 mg PO DAILY #30 tablet 05/26/17 Warfarin Na [Coumadin -] 5 mg PO DAILY@1800 #30 tablet 05/26/17 Simvastatin [Zocor -] 20 mg PO DAILY 06/21/17 Anemia: No Asthma: Yes (DX IN HER 30'S-STABLE) Cancer: Yes (LEFT BREAST CA-DX 2009) Cardiac Disorders: Yes (VALVE DISEASE) CVA: No COPD: No CHF: No Dementia: No Diabetes: No GI Disorders: No Disorders: No HTN: Yes Hypercholesterolemia: Yes (DX 2009) Liver Disease: No Seizures: No Thyroid Disease: Yes (hypo) - Surgical History Abdominal Surgery: Yes Appendectomy: No Cardiac Surgery: Yes (VALVE REPLACED X 2-MECHANICAL -1995 THEN REPLACED FLESH- 2014) Cholecystectomy: Yes (LAP CHOLEY-2011) Lung Surgery: No Neurologic Surgery: No Orthopedic Surgery: No - Immunization History Td Vaccination: Yes TDAP Vaccination: No Immunization Up to Date: Yes - Suicide/Smoking/Psychosocial Hx Smoking Status: No Smoking History: Former smoker Have you smoked in the past 12 months: No Number of Cigarettes Smoked Daily: 0 If you are a former smoker, when did you quit?: 1986 Hx Alcohol Use: Yes (rarely) Drug/Substance Use Hx: No Substance Use Type: None Hx Substance Use Treatment: No Review of Systems - Review of Systems Able to Perform ROS?: Yes Comments:: 06/21/17 10:18 Constitutional - no reported Fever, Chills, HEENT: no reported vision changes, sore throat Respiratory: no reported cough, sob, hemoptysis Cardiac: no reported chest pain, palpitations, light headedness, leg swelling Abd/GI: +spit up brown sputum no reported abd pain, nausea, vomiting, blood per rectum, melena, diarrhea : no reported dysuria, frequency, discharge Musculskelatal - no reported back pain, joint swelling skin - no reported bruising, erythema, rash neurological: no reported headache, numbness, focal weakness, tingling, ataxia, hematologic: no reported anemia, easy bruising, easy bleeding *Physical Exam - Physical Exam Comments: 06/21/17 10:20 GENERAL: The patient is awake, alert, and fully oriented, Nontoxic - in no acute distress. HEAD: Normocephalic, atraumatic. EYES: extraocular movements intact, sclera anicteric, conjunctiva clear. ENT: Normal voice, Moist mucous membranes. NECK: Normal range of motion, supple LUNGS: Breath sounds equal, clear to auscultation bilaterally. No wheezes, no rhonchi, no rales. HEART: irregularly irregular ABDOMEN: Soft, nontender, normoactive bowel sounds. No guarding, no rebound. . No CVA tenderness EXTREMITIES: Normal range of motion, trace edema. NEUROLOGICAL: No facial assymetry, Normal speech, PSYCH: Normal mood, normal affect. SKIN: Warm, Dry, normal turgor, ED Treatment Course - LABORATORY CBC & Chemistry Diagram: 06/21/17 10:20 06/21/17 10:20 Medical Decision Making - Medical Decision Making 06/21/17 10:20 sameera lrecheck INR and lab work pt currently on 5mg daily of coumadin, may need to change her dose and recheck her inr in a few days will notify dr. padilla once inr is back 06/21/17 11:24 labs reviewed inr elvated to 4.7 after holding one dose case dw dr. carson covering for dr. padilla will have pt hold another dose, starting friday start at 2.5 alternating with 5mg on a daily basis and have the pt recheck INR on friday will dc with pmd fu return precautions were discussed I discussed the physical exam findings, ancillary test results and final diagnoses with the patient. I answered all of the patient's questions. The patient was satisfied with the care received and felt comfortable with the discharge plan and treatment plan. The patient will call their primary care physician within 24 hours to arrange follow-up and will return to the Emergency Department with any new, persistent or worsening symptoms. *DC/Admit/Observation/Transfer Diagnosis at time of Disposition: Elevated international normalized ratio (INR) - Discharge Dispostion Disposition: HOME Condition at time of disposition: Good Admit: No - Referrals Referrals: Jasiel Padilla MD [Primary Care Provider] - - Patient Instructions Additional Instructions: Return to the emergency department immediately with ANY new, persistent or worsening symptoms including bleeding, shortness of breath, dizziness, chest pain, rectal bleeding, black stool, coughing up blood or other concerns. Change your coumadin to alternating doses of 2.5mg and 5mg. Hold todays dose, start taking 2.5 mg tomorrow, then 5mg on friday, then 2.5 on friday, then have your INR checked on friday with dr. padilla. You MUST call and follow up with your doctor tomorrow for further evaluation of your symptoms. Results were discussed with you. Please make sure your doctor reviews the results of your emergency evaluation. Print Language: SINHALA
[2017-06-21 10:20] VITALS: BP 128/92; PULSE 80; TEMP 97.6; BMI 24.1
[2017-06-21 10:30] LABS: BASOPHIL 0.4 % (0-2.0); EOSINOPHIL 2.2 % (0-4.5); MCH 27.8 pg (25.7-33.7); MCHC 32.3 g/dl (32.0-36.0); MEAN PLT VOLUME 7.8 fl (7.5-11.1); NEUTROPHILS 78.2 % (42.8-82.8); PLATELET COUNT 195 K/MM3 (134-434); RDW 15.4 % (11.6-15.6); WHITE BLOOD COUNT 4.4 K/mm3 (4.0-10.8)
[2017-06-21 10:39] LABS: INR 4.72 (0.82-1.09); PROTHROMBIN TIME (PATIENT) 51.3 SEC (10.2-13.0)
[2017-06-21 10:57] LABS: ALBUMIN 3.5 g/dl (3.5-5.0); ALK PHOS 52 U/L (32-92); ANION GAP 8 (8-16); BILIRUBIN,TOTAL 0.6 mg/dl (0.2-1.0); CALCIUM 8.7 mg/dl (8.4-10.2); CO2 34 mmol/L (22-28); CREATININE 0.9 mg/dl (0.6-1.3); GLUCOSE,RANDOM 98 mg/dl (74-106); SGOT/AST 19 U/L (10-42); SGPT/ALT 13 U/L (10-40); TOT PROT 6.6 g/dl (6.4-8.3)
== END 2017-06-21 11:38 | disposition home or self-care (01) ==
LOC: FER 09:54
DX: D68.9 Coagulation defect, unspecified (principal); I10 Essential (primary) hypertension; E78.00 Pure hypercholesterolemia, unspecified; J45.909 Unspecified asthma, uncomplicated; Z85.3 Personal history of malignant neoplasm of breast; E03.9 Hypothyroidism, unspecified; Z87.891 Personal history of nicotine dependence
CPT/HCPCS: 36415; 80053; 85025; 85610; 99283-25

== ENCOUNTER 2019-01-10 19:22 | Inpatient (IN) | payer OTHER, MEDICARE ==
[2019-01-10] MEDS ORDERED: methylPREDNISolone NA SUCC 125 MG/2 ML VIAL IVPB ONE (19:33)
[2019-01-10] MEDS ORDERED: FUROSEMIDE 40 MG/4 ML INJECTABLE VIAL IVPUSH ONE (19:44)
[2019-01-10] MEDS ORDERED: FUROSEMIDE 40 MG/4 ML INJECTABLE VIAL ONE (19:53)
[2019-01-10] MEDS ORDERED: methylPREDNISolone NA SUCC 125 MG/2 ML VIAL ONE (19:53)
[2019-01-10] MEDS ORDERED: ALBUTEROL SO4 2.5/IPRATROPIUM 0.5 INH SOL 3 ML VIAL.NEB. NEB ONE ×3 (19:53→21:36)
--- NOTE | 2019-01-10 19:56 | PDOC ---
Documentation entered by Miguelina Pabon SCRIBE, acting as scribe for Mike Leiva MD. Mike Leiva MD: This documentation has been prepared by the Pepper yeung Daisy, SCRIBE, under my direction and personally reviewed by me in its entirety. I confirm that the documentation accurately reflects all work, treatment, procedures, and medical decision making performed by me. History of Present Illness - General Chief Complaint: Shortness of Breath Stated Complaint: DIFFICULTY BREATHING ALL WEEKEND Time Seen by Provider: 01/10/19 19:24 History Source: Patient Exam Limitations: No Limitations - History of Present Illness Initial Comments: 01/10/19 19:33 The patient is a 88 YOF with a PMH of CHF, HTN, HLD, hypothyroidism, afib and asthma who presents to the ER for worsening shortness of breath over the past 3 days. She reports the shortness of breath worsens with walking or doing daily activities. She used a nebulizer treatment at home with moderate improvement. She notes she is unable to lay down flat, but states this has been the case since 2014. She states her shortness of breath feels similar to her asthma but seems worse than her typical asthma flare-ups. Not currently on any home oxygen. Admits to chronic orthopnea and leg swelling, but denies any cough, fever, chest pain. Daughter notes that she is concerned about increased leg swelling. Allergies: NKDA Social Hx: Former smoker. Denies drug or alcohol use. Surgeries: Valve replaced X 2-mechanical -1995 then replaced flesh-2014, lap choley in 2011 Past History - Past Medical History Allergies/Adverse Reactions: Allergies Allergy/AdvReac Type Severity Reaction Status Date / Time No Known Allergies Allergy Verified 01/10/19 19:30 Home Medications: Ambulatory Orders Aspirin [Geno Chewable Aspirin] 81 mg PO DAILY 05/22/17 Losartan Potassium [Cozaar -] 50 mg PO DAILY 05/22/17 Carvedilol [Coreg -] 12.5 mg PO BID #30 tablet 05/26/17 Famotidine [Pepcid -] 20 mg PO BID tablet 05/26/17 Furosemide [Lasix -] 40 mg PO DAILY tablet 05/26/17 Spironolactone [Aldactone -] 25 mg PO DAILY #30 tablet 05/26/17 Warfarin Na [Coumadin -] 5 mg PO DAILY@1800 #30 tablet 05/26/17 Simvastatin [Zocor -] 20 mg PO DAILY 06/21/17 Montelukast Na [Singulair -] 10 mg PO HS 01/10/19 Anemia: No Asthma: Yes (DX IN HER 30'S-STABLE) Cancer: Yes (LEFT BREAST CA-DX 2009) Cardiac Disorders: Yes (VALVE DISEASE) CVA: No COPD: No CHF: No Dementia: No Diabetes: No GI Disorders: No Disorders: No HTN: Yes Hypercholesterolemia: Yes (DX 2009) Liver Disease: No Seizures: No Thyroid Disease: Yes (hypo) - Surgical History Abdominal Surgery: Yes Appendectomy: No Cardiac Surgery: Yes (VALVE REPLACED X 2-MECHANICAL -1995 THEN REPLACED FLESH- 2014) Cholecystectomy: Yes (LAP CHOLEY-2011) Lung Surgery: No Neurologic Surgery: No Orthopedic Surgery: No - Immunization History Td Vaccination: Yes TDAP Vaccination: No Immunization Up to Date: Yes - Suicide/Smoking/Psychosocial Hx Smoking Status: No Smoking History: Former smoker Have you smoked in the past 12 months: No Number of Cigarettes Smoked Daily: 0 If you are a former smoker, when did you quit?: 1986 Hx Alcohol Use: Yes (rarely) Drug/Substance Use Hx: No Substance Use Type: None Hx Substance Use Treatment: No Cardiac Specific PMH - Complaint Specific PMHX Pacemaker: No Review of Systems - Review of Systems Able to Perform ROS?: Yes Comments:: 01/10/19 19:39 "GENERAL/CONSTITUTIONAL: No fever or chills. No weakness. HEAD, EYES, EARS, NOSE AND THROAT: No change in vision. No ear pain or discharge. No sore throat. CARDIOVASCULAR: No chest pain, no shortness of breath, no loss of consciousness RESPIRATORY: No cough, wheezing, or hemoptysis. (+) shortness of breath. GASTROINTESTINAL: No nausea, vomiting, diarrhea or constipation. GENITOURINARY: No dysuria, frequency, or change in urination. MUSCULOSKELETAL: No joint or muscle swelling or pain. No neck or back pain. SKIN: No rash NEUROLOGIC: No vertigo, no change in strength/sensation. ENDOCRINE: No increased thirst. No abnormal weight change. HEMATOLOGIC/LYMPHATIC: No anemia, easy bleeding, or history of blood clots. ALLERGIC/IMMUNOLOGIC: No hives or skin allergy. " *Physical Exam - Vital Signs Last Vital Signs Temp Pulse Resp BP Pulse Ox 97.3 F L 65 22 H 127/72 97 01/10/19 19:47 01/10/19 21:58 01/10/19 19:47 01/10/19 21:58 01/10/19 21:58 - Physical Exam Comments: 01/10/19 19:37 GENERAL: Awake, alert, and fully oriented, in no acute distress. HEAD: No signs of trauma EYES: PERRLA, EOMI, sclera anicteric, conjunctiva clear ENT: Auricles normal inspection, hearing grossly normal, nares patent, oropharynx clear without exudates. Moist mucosa NECK: Nontender, no stepoffs, Normal ROM, supple, no lymphadenopathy, JVD, or masses LUNGS: (+) Bibasilar rales. Mild expiratory wheezing. HEART: Regular rate and rhythm, normal S1 and S2, no murmurs, rubs or gallops ABDOMEN: Soft, nontender, normoactive bowel sounds. No guarding, no rebound. No masses EXTREMITIES: (+) 2+ pitting edema in bilateral lower extremities. Normal range of motion. No tenderness. NEUROLOGICAL: Cranial nerves II through XII intact. 5/5 strength and sensation in all extremities, Normal speech, normal gait, normal cerebellar function SKIN: Warm, Dry, normal turgor, no rashes or lesions noted. Heart Score/ECG Review - ECG Impressions Comment:: 01/10/19 19:52 afib, anterior Q waves, no STEs, TWI and ST depressions laterally seen on prior EKG, rate 105 ED Treatment Course - LABORATORY CBC & Chemistry Diagram: 01/10/19 19:40 01/10/19 19:40 - ADDITIONAL ORDERS Additional order review: Laboratory Results 01/10/19 01/10/19 01/10/19 19:47 19:40 19:40 Sodium 142 Potassium 5.4 H Chloride 107 Carbon Dioxide 25 Anion Gap 10 BUN 29 H Creatinine 0.9 Est GFR (CKD-EPI)AfAm 67.10 Est GFR (CKD-EPI)NonAf 57.90 Random Glucose 116 H Calcium 9.6 Total Bilirubin 1.4 H AST 26 ALT 17 Alkaline Phosphatase 77 Creatine Kinase 70 Troponin I < 0.03 B-Natriuretic Peptide 1932.4 H Total Protein 7.3 Albumin 3.7 01/10/19 19:40 RBC 4.12 MCV 80.5 MCHC 31.7 L RDW 18.8 H MPV 8.7 Neutrophils % 82.1 Lymphocytes % 9.3 Monocytes % 7.5 Eosinophils % 0.8 Basophils % 0.3 - RADIOLOGY Radiology Studies Ordered: Category Date Time Status CHEST PA & LAT [RAD] Stat Radiology 01/10/19 19:32 Taken - Medications Given in the ED: ED Medications Discontinued Medications Generic Name Dose Route Start Last Admin Trade Name Gloria PRN Reason Stop Dose Admin Albuterol/Ipratropium 1 amp 01/10/19 19:45 01/10/19 21:00 Duoneb - NEB 01/10/19 20:31 1 amp Q15M ALE Administration Albuterol/Ipratropium 1 amp 01/10/19 21:35 01/10/19 21:39 Duoneb - NEB 01/10/19 21:36 1 amp ONCE ONE Administration Furosemide 40 mg 01/10/19 19:44 01/10/19 20:10 Lasix Injection - IVPUSH 01/10/19 19:45 40 mg ONCE ONE Administration Methylprednisolone Sodium Succinate 125 mg 01/10/19 19:33 01/10/19 20:10 Solu-Medrol - IVPB 01/10/19 19:34 125 mg ONCE ONE Administration Medical Decision Making - Medical Decision Making 01/10/19 19:53 88 F with SOB and MOE. Exam with bibasilar rales, pitting edema. Also mild wheezing. Suspect CHF vs asthma. - Labs, BNP, trop - CXR - Trial of nebs and steroids - Lasix 40mg IV 01/10/19 21:35 Labs wnl CXR shows b/l pleural effusions Pt reassessed - notes significant improvement in breathing. Attempted to ambulate pt around ED, but pt reporting worsening SOB and MOE. Ambulatory O2 sat 83% on RA Will admit for continued tx and monitoring 01/10/19 22:03 Pt admitted to hospitalist *DC/Admit/Observation/Transfer Diagnosis at time of Disposition: Asthma CHF (congestive heart failure) Qualifiers: Qualified Code(s): I50.9 - Heart failure, unspecified - Discharge Dispostion Condition at time of disposition: Stable Decision to Admit order: Yes - Referrals Referrals: Vitaliy Dominguez MD [Primary Care Provider] - - Patient Instructions - Post Discharge Activity - Attestations Physician Attestion: 01/10/19 22:03 I, Dr. Mike Leiva MD, attest that this document has been prepared under my direction and personally reviewed by me in its entirety. I further attest, that it accurately reflects all work, treatment, procedures and medical decision -making performed by me.
[2019-01-10 20:10] LABS: BASO % 0.3 % (0-2.0); EOS % 0.8 % (0-4.5); HEMATOCRIT 33.2 % (32.4-45.2); HEMOGLOBIN 10.5 GM/dl (10.7-15.3); LYMPH % 9.3 % (8-40); MCH 25.5 pg (25.7-33.7); MCHC 31.7 g/dl (32.0-36.0); MEAN CELL VOLUME 80.5 fl (80-96); MEAN PLT VOLUME 8.7 fl (7.5-11.1); MONO % 7.5 % (3.8-10.2); NEUT % 82.1 % (42.8-82.8); PLATELET COUNT 165 K/MM3 (134-434); RBC 4.12 M/mm3 (3.60-5.2); RDW 18.8 % (11.6-15.6); WHITE BLOOD COUNT 6.2 K/mm3 (4.0-10.8)
[2019-01-10] MEDS: ALBUTEROL SO4 2.5/IPRATROPIUM 0.5 INH SOL 3 ML VIAL.NEB. NEB SCH ×4 (20:10→21:00)
[2019-01-10 20:22] LABS: ALBUMIN 3.7 g/dl (3.4-5.0); BILIRUBIN,TOTAL 1.4 mg/dl (0.2-1); CALCIUM 9.6 mg/dl (8.5-10); CREATININE 0.9 mg/dl (0.55-1.3); POTASSIUM 5.4 mmol/L (3.5-5.1); TOT PROT 7.3 g/dl (6.4-8.2)
--- NOTE | 2019-01-10 22:03 | HP ---
Admitting History and Physical - Primary Care Physician PCP: Vitaliy Dominguez - Admission Chief Complaint: SOB, B/L LE Edema History of Present Illness: This is a 88 y/o woman with a significant medical history of HTN, Afib (on Coumadin), Aortic Aneurysm Repair ([facility]), Mitral Valve Repair ([facility]). Who presents to the ED with her daughter for SOB, MOE, Orthopnea, B/L lower extremity edema x several days-weeks. Per the daughter, the patient went to [place] over the weekend with the family, she was SOB, MOE and had LE edema. The patient reports having "chest flutters" when she walks- resolved at rest. Patient denies chest pain. dizziness. Patient denies fever, chills, Kemp, AP, N/V/ D, constipation, dysuria. History Source: Patient, Family Member Limitations to Obtaining History: No Limitations - Past Medical History Cardiovascular: Yes: AFIB, Aneurysm, CHF, HTN, Hyperlipdemia, Mitral Insufficiency, Other Pulmonary: Yes: Asthma Heme/Onc: Yes: Cancer Psych: Yes: Anxiety, Depression Endocrine: Yes: Hypothyroidism - Past Surgical History Past Surgical History: Yes: Cataract Removal, Cholecystectomy, Valve Replacement - Smoking History Smoking history: Former smoker Have you smoked in the past 12 months: No Aproximately how many cigarettes per day: 0 If you are a former smoker, when did you quit?: 1986 - Alcohol/Substance Use Hx Alcohol Use: Yes (rarely) History of Substance Use: reports: None - Social History ADL: Family Assistance History of Recent Travel: Yes Home Medications - Allergies Allergies/Adverse Reactions: Allergies Allergy/AdvReac Type Severity Reaction Status Date / Time No Known Allergies Allergy Verified 01/10/19 19:30 - Home Medications Home Medications: Ambulatory Orders Aspirin [Geno Chewable Aspirin] 81 mg PO DAILY 05/22/17 Losartan Potassium [Cozaar -] 50 mg PO DAILY 05/22/17 Carvedilol [Coreg -] 12.5 mg PO BID #30 tablet 05/26/17 Famotidine [Pepcid -] 20 mg PO BID tablet 05/26/17 Furosemide [Lasix -] 40 mg PO DAILY tablet 05/26/17 Spironolactone [Aldactone -] 25 mg PO DAILY #30 tablet 05/26/17 Warfarin Na [Coumadin -] 5 mg PO DAILY@1800 #30 tablet 05/26/17 Simvastatin [Zocor -] 20 mg PO DAILY 06/21/17 Montelukast Na [Singulair -] 10 mg PO HS 01/10/19 Family Disease History - Family Disease History Family History: Unable to Obtain Review of Systems - Review of Systems Constitutional: reports: No Symptoms Eyes: reports: No Symptoms HENT: reports: Difficult Swallowing Neck: reports: No Symptoms Cardiovascular: reports: Shortness of Breath, Other (flutters) Respiratory: reports: Cough, Orthopnea, SOB, SOB on Exertion Gastrointestinal: reports: No Symptoms Genitourinary: reports: No Symptoms Breasts: reports: No Symptoms Reported Musculoskeletal: reports: No Symptoms Integumentary: reports: No Symptoms Neurological: reports: No Symptoms Endocrine: reports: No Symptoms Hematology/Lymphatic: reports: No Symptoms Psychiatric: reports: No Symptoms Physical Examination Vital Signs: Vital Signs Temperature 97.3 F L 01/10/19 19:47 Pulse Rate 65 01/10/19 21:58 Respiratory Rate 22 H 01/10/19 19:47 Blood Pressure 127/72 01/10/19 21:58 O2 Sat by Pulse Oximetry (%) 97 01/10/19 21:58 Constitutional: Yes: Calm, Anxious Eyes: Yes: WNL, Conjunctiva Clear, EOM Intact, PERRL HENT: Yes: WNL, Atraumatic, Normocephalic Neck: Yes: WNL, Supple, Trachea Midline Cardiovascular: Yes: Pulse Irregular, Murmur (systolic), S1, S2 Respiratory: Yes: Diminished (bases), On Nasal O2, SOB on Exertion, Tachypnea Gastrointestinal: Yes: WNL, Normal Bowel Sounds, Soft Renal/: Yes: WNL Breast(s): Yes: WNL Musculoskeletal: Yes: WNL Extremities: Yes: WNL Edema: Yes Edema: LLE: 3+, RLE: 3+ Peripheral Pulses WNL: Yes Neurological: Yes: WNL, Alert, Oriented, Cran Nerves II-XII Intact ...Motor Strength: WNL Psychiatric: Yes: WNL, Alert, Oriented Labs: CBC, BMP 01/10/19 19:40 01/10/19 19:40 Imaging - Results Chest X-ray: Image Reviewed EKG: Image Reviewed Problem List - Problems (1) Acute on chronic systolic (congestive) heart failure Assessment/Plan: Continue cardiac monitoring BNP 1932 Chest Xray image- vascular congestion, pleural effusion Appreciate Cardiology consult Echo in am- r/o wall motion abnormalities Echo 05/2017- NL LV size with EF 35-40%, global HK, mild conc LVH. mild RV dysfunction, mod AV, BIO MVR with possible stenosis, mild TR, mild PHTN Lasix given in ED Will increase Lasix BID Monitor renal function closely Daily weight Strict INOs O2 Code(s): I50.23 - ACUTE ON CHRONIC SYSTOLIC (CONGESTIVE) HEART FAILURE (2) Bilateral lower extremity edema Assessment/Plan: Likely secondary to CHF vs DVT Lasix given in ED, will continue Wells Score 1 Duplex of LE in am r/o DVT Elevate extremities TEDs Strict INOs Daily weights Code(s): R60.0 - LOCALIZED EDEMA (3) Afib Assessment/Plan: [id number] 5 EKG reviewed- Afib Continue cardiac monitoring Trop I neg x1 Serial Enzymes INR 3.05 Continue Coumadin with goal INR 2.5-3.5 (mechanical valve) Appreciate Cardiology consult Continue Coreg Consider Digoxin for rate control secondary to HF Code(s): I48.91 - UNSPECIFIED ATRIAL FIBRILLATION (4) Hyperkalemia Assessment/Plan: Likely secondary to medication Will hold Aldactone for now Appreciate Cardiology input Kayexalate ordered Monitor BMP in am EKG reviewed no peaked Ts Continue cardiac monitoring Code(s): E87.5 - HYPERKALEMIA (5) Dysphagia Assessment/Plan: Patient's daughter and patient report difficulty swallowing meds and food Appreciate Swallow Eval Code(s): R13.10 - DYSPHAGIA, UNSPECIFIED (6) Asthma Assessment/Plan: Aute flare likely secondary to Afib vs CHF Duonebs Peak flow Continue Singulair Consider Pulm Consult if condition worsens O2 Code(s): J45.909 - UNSPECIFIED ASTHMA, UNCOMPLICATED (7) HTN (hypertension) Assessment/Plan: stable Monitor BP Continue Cozaar Monitor renal function Code(s): I10 - ESSENTIAL (PRIMARY) HYPERTENSION (8) Hx of mitral valve repair Assessment/Plan: Continue Coumadin Maintain INR 2.5-3.5 Series INR Code(s): Z98.890 - OTHER SPECIFIED POSTPROCEDURAL STATES Assessment/Plan This is a 88 y/o woman with a PMHx of HTN, HLD, Afib (on Coumadin), Mitral Valve Replacement ([facility]), Aortic Aneurysm Repair. Admitted to Telemetry for CHF Exacerbation, Afib with RVR for further evaluation of their emergent condition. Plan: See Problem List FEN Fluid Restriction 1L Replete lytes prn Low Na Diet DVT ppx OOB SCDs Continue Coumadin Dispo: Requires Inpatient Care Visit type - Emergency Visit Emergency Visit: Yes ED Registration Date: 01/10/19 Care time: The patient presented to the Emergency Department on the above date and was hospitalized for further evaluation of their emergent condition. - New Patient This patient is new to me today: Yes Date on this admission: 01/10/19 - Critical Care Critical Care patient: No
[2019-01-10] MEDS ORDERED: CARVEDILOL 12.5 MG TABLET (FP) PO SCH (22:45)
[2019-01-10 23:07] LABS: INR 3.06 (0.82-1.09); PROTHROMBIN TIME (PATIENT) 33.5 SEC (10.2-13.0)
[2019-01-11] MEDS ORDERED: SODIUM POLYSTYRENE SULFONATE 15 GM/60 ML BOTTLE PO ONE (01:18)
[2019-01-11] MEDS: FUROSEMIDE 40 MG/4 ML INJECTABLE VIAL IVPUSH SCH ×2 (05:59→14:22)
[2019-01-11] MEDS: LEVOTHYROXINE NA 25 MCG TABLET (FP) PO SCH (06:00)
[2019-01-11] MEDS: CARVEDILOL 12.5 MG TABLET (FP) PO SCH ×2 (08:03→21:19)
[2019-01-11 08:42] LABS: CALCIUM 9.3 mg/dl (8.5-10); CREATININE 1.1 mg/dl (0.55-1.3); INR 2.57 (0.82-1.09); POTASSIUM 4.6 mmol/L (3.5-5.1); PROTHROMBIN TIME (PATIENT) 28.2 SEC (10.2-13.0)
[2019-01-11 09:12] LABS: HEMOGLOBIN 10.2 GM/dl (10.7-15.3); WHITE BLOOD COUNT 3.7 K/mm3 (4.0-10.8)
[2019-01-11 09:18] LABS: HEMATOCRIT 32.3 % (32.4-45.2); MCH 25.3 pg (25.7-33.7); MCHC 31.5 g/dl (32.0-36.0); MEAN CELL VOLUME 80.2 fl (80-96); PLATELET COUNT 152 K/MM3 (134-434); RBC 4.02 M/mm3 (3.60-5.2); RDW 19.8 % (11.6-15.6)
[2019-01-11 09:19] LABS: ADD RBC MORPHOLOGY YES
[2019-01-11] MEDS: FAMOTIDINE 20 MG TABLET PO SCH ×2 (09:33→21:17)
[2019-01-11] MEDS: LOSARTAN POTASSIUM 25 MG TABLET PO SCH (09:33)
[2019-01-11] MEDS: ASPIRIN 81 MG CHEWABLE TABLETS PO SCH (09:33)
--- NOTE | 2019-01-11 09:40 | CON.CARD ---
Consult Consult Specialty:: Cardiology - History of Present Illness Chief Complaint: sob le edema History of Present Illness: This is a 88 y/o woman with a significant medical history of HTN, Afib (on Coumadin), Aortic Aneurysm Repair ([facility]), Mitral Valve Repair ([facility]). Who presents to the ED with her daughter for SOB, MOE, Orthopnea, B/L lower extremity edema x several days-weeks. Per the daughter, the patient went to [place] over the weekend with the family, she was SOB, MOE and had LE edema. The patient reports having "chest flutters" when she walks- resolved at rest. Patient denies chest pain. dizziness. Patient denies fever, chills, Kemp, AP, N/V/ D, constipation, dysuria. History Source: Patient, Family Member - History Source History Provided By: Patient, Medical Record - Past Medical History Cardio/Vascular: Yes: AFIB, Aneurysm, CHF, HTN, Hyperlipdemia, Mitral Insufficiency, Other Pulmonary: Yes: Asthma ...: No Psych: Yes: Anxiety, Depression Endocrine: Yes: Hypothyroidism Additional Medical History: MRSA infection of sternotomy site. Right diaphragm paralysis following thoracotomy - Past Surgical History Past Surgical History: Yes: Cataract Removal, Cholecystectomy, Valve Replacement - Alcohol/Substance Use Hx Alcohol Use: Yes (rarely) History of Substance Use: reports: None - Smoking History Smoking history: Former smoker Have you smoked in the past 12 months: No Aproximately how many cigarettes per day: 0 If you are a former smoker, when did you quit?: 1986 - Social History Usual Living Arrangement: Alone ADL: Family Assistance History of Recent Travel: Yes Home Medications - Allergies Allergies/Adverse Reactions: Allergies Allergy/AdvReac Type Severity Reaction Status Date / Time No Known Allergies Allergy Verified 01/10/19 19:30 - Home Medications Home Medications: Ambulatory Orders Aspirin [Geno Chewable Aspirin] 81 mg PO DAILY 05/22/17 Losartan Potassium [Cozaar -] 50 mg PO DAILY 05/22/17 Carvedilol [Coreg -] 12.5 mg PO BID #30 tablet 05/26/17 Famotidine [Pepcid -] 20 mg PO BID tablet 05/26/17 Furosemide [Lasix -] 40 mg PO DAILY tablet 05/26/17 Spironolactone [Aldactone -] 25 mg PO DAILY #30 tablet 05/26/17 Warfarin Na [Coumadin -] 5 mg PO DAILY@1800 #30 tablet 05/26/17 Simvastatin [Zocor -] 20 mg PO DAILY 06/21/17 Montelukast Na [Singulair -] 10 mg PO HS 01/10/19 Review of Systems - Review of Systems Constitutional: reports: No Symptoms Eyes: reports: No Symptoms HENT: reports: No Symptoms Neck: reports: No Symptoms Cardiovascular: reports: Edema Respiratory: reports: SOB, SOB on Exertion Gastrointestinal: reports: No Symptoms Genitourinary: reports: No Symptoms Breasts: reports: No Symptoms Reported Musculoskeletal: reports: No Symptoms Integumentary: reports: No Symptoms Neurological: reports: No Symptoms Endocrine: reports: No Symptoms Hematology/Lymphatic: reports: No Symptoms Psychiatric: reports: No Symptoms Vital Signs: Vital Signs Temperature 97.6 F 01/11/19 06:00 Pulse Rate 101 H 01/11/19 08:09 Respiratory Rate 01/11/19 08:43 Blood Pressure 111/65 01/11/19 08:09 O2 Sat by Pulse Oximetry (%) 96 01/11/19 08:43 Constitutional: Yes: Well Nourished, No Distress, Calm Eyes: Yes: WNL, Conjunctiva Clear, EOM Intact HENT: Yes: WNL, Atraumatic, Normocephalic Neck: Yes: WNL, Supple, Trachea Midline Respiratory: Yes: WNL, Regular, CTA Bilaterally Gastrointestinal: Yes: WNL, Normal Bowel Sounds Renal/: Yes: WNL Cardiovascular: Yes: WNL, Regular Rate and Rhythm Musculoskeletal: Yes: WNL Extremities: Yes: WNL Integumentary: Yes: WNL Neurological: Yes: WNL, Alert, Oriented ...Motor Strength: WNL Psychiatric: Yes: WNL, Alert, Oriented - Other Data Labs, Other Data: CBC, BMP 01/11/19 07:03 01/11/19 07:03 INR, PTT INR 2.57 (0.82-1.09) H 01/11/19 07:03 Troponin, BNP 01/10/19 01/10/19 01/11/19 19:40 19:47 02:00 Troponin I < 0.03 Cancelled B-Natriuretic Peptide 1932.4 H 01/11/19 01/11/19 02:00 07:03 Troponin I < 0.02 < 0.03 B-Natriuretic Peptide Troponin, BNP 01/10/19 01/10/19 01/11/19 19:40 19:47 02:00 Troponin I < 0.03 Cancelled B-Natriuretic Peptide 1932.4 H 01/11/19 01/11/19 02:00 07:03 Troponin I < 0.02 < 0.03 B-Natriuretic Peptide Imaging - Results Chest X-ray: Image Reviewed (bilateral pleural effusion) EKG: Image Reviewed (AF nonspecific rep abn) Problem List - Problems (1) Asthma Code(s): J45.909 - UNSPECIFIED ASTHMA, UNCOMPLICATED (2) Bilateral lower extremity edema Code(s): R60.0 - LOCALIZED EDEMA (3) Congestive heart failure Code(s): I50.9 - HEART FAILURE, UNSPECIFIED Qualifiers: Qualified Code(s): I50.9 - Heart failure, unspecified (4) Dysphagia Code(s): R13.10 - DYSPHAGIA, UNSPECIFIED (5) HTN (hypertension) Code(s): I10 - ESSENTIAL (PRIMARY) HYPERTENSION (6) Hx of mitral valve repair Code(s): Z98.890 - OTHER SPECIFIED POSTPROCEDURAL STATES (7) Hyperkalemia Code(s): E87.5 - HYPERKALEMIA (8) Acute myocardial infarction Code(s): I21.3 - ST ELEVATION (STEMI) MYOCARDIAL INFARCTION OF [facility] SITE (9) Acute on chronic systolic (congestive) heart failure Code(s): I50.23 - ACUTE ON CHRONIC SYSTOLIC (CONGESTIVE) HEART FAILURE (10) Afib Code(s): I48.91 - UNSPECIFIED ATRIAL FIBRILLATION (11) Bilateral pleural effusion Code(s): J90 - PLEURAL EFFUSION, NOT ELSEWHERE CLASSIFIED (12) Bronchitis Code(s): J40 - BRONCHITIS, NOT SPECIFIED ACUTE OR CHRONIC (13) Contusion of forehead Code(s): S00.83XA - CONTUSION OF OTHER PART OF HEAD, INITIAL ENCOUNTER (14) Contusion of nose Code(s): S00.33XA - CONTUSION OF NOSE, INITIAL ENCOUNTER (15) Dehydration Code(s): E86.0 - DEHYDRATION (16) Diarrhea Code(s): R19.7 - DIARRHEA, UNSPECIFIED (17) Dilated cardiomyopathy Code(s): I42.0 - DILATED CARDIOMYOPATHY (18) Elevated INR Code(s): R79.1 - ABNORMAL COAGULATION PROFILE (19) Heart failure, systolic, acute Code(s): I50.21 - ACUTE SYSTOLIC (CONGESTIVE) HEART FAILURE (20) Laceration of forehead Code(s): S01.81XA - LACERATION W/O FOREIGN BODY OF OTH PART OF HEAD, INIT ENCNTR (21) Nausea and vomiting Code(s): R11.2 - NAUSEA WITH VOMITING, UNSPECIFIED (22) Urinary tract infection Code(s): N39.0 - URINARY TRACT INFECTION, SITE NOT SPECIFIED Assessment/Plan Decompensated CHF HTN, Afib (on Coumadin), Aortic Aneurysm Repair ([facility]), Mitral Valve Repair ([facility]) Plan Telemetry echo IV LASIX cont AC cont ASA will f/u
[2019-01-11] MEDS ORDERED: SPIRONOLACTONE 25 MG TABLET (FP) PO SCH (10:00)
--- NOTE | 2019-01-11 10:00 | EKG ---
Test Reason : Blood Pressure : / mmHG Vent. Rate : 105 BPM Atrial Rate : 078 BPM P-R Int : 000 ms QRS Dur : 110 ms QT Int : 364 ms P-R-T Axes : 000 -12 112 degrees QTc Int : 481 ms ATRIAL FIBRILLATION WITH RAPID VENTRICULAR RESPONSE LOW VOLTAGE QRS NONSPECIFIC T WAVE ABNORMALITY ABNORMAL ECG WHEN COMPARED WITH ECG OF 22-MAY-2017 12:39, NO SIGNIFICANT CHANGE WAS FOUND Confirmed by ARIADNE HUANG MD ([id number]) on 01/11/2019 10:00:36 AM Referred By: HOANG Confirmed By:ARIADNE HUANG MD
[2019-01-11 10:11] LABS: ANISOCYTOSIS 2+; OVALOCYTE 2+
[2019-01-11 10:12] LABS: PLATELET ESTIMATE ADEQUATE
--- NOTE | 2019-01-11 15:28 | ECHO ---
Name: CRISTO MONAHAN Exam:Adult Echocardiogram Study Date: 01/11/2019 01:31 PM Age: 88 yrs Reason For Study: CHF Height: 62 in Weight: 134 lb BSA: 1.6 m2 MMode/2D Measurements & Calculations IVSd: 1.2 cm Ao root diam: 3.6 cm LVIDd: 4.0 cm LA dimension: 3.9 cm LVIDs: 2.5 cm LVPWd: 1.2 cm EDV(Teich): 67.9 ml LVOT diam: 2.0 cm ESV(Teich): 23.1 ml Doppler Measurements & Calculations MV V2 max: 220.0 cm/sec MV E max bartolo: 231.4 cm/sec MV max P.4 mmHg MV A max bartolo: 91.2 cm/sec MV V2 mean: 122.2 cm/sec MV E/A: 2.5 MV mean P.5 mmHg MV V2 VTI: 54.7 cm Ao V2 max: 147.6 cm/sec MV dec slope: 2151 cm/sec2 Ao max P.7 mmHg SINDI(V,D): 1.4 cm2 LV V1 max P.7 mmHg TR max bartolo: 250.0 cm/sec LV V1 max: 65.4 cm/sec TR max P.1 mmHg PA V2 max: 82.4 cm/sec PI end-d bartolo: 101.3 cm/sec PA max P.7 mmHg Procedure A complete two-dimensional transthoracic echocardiogram was performed (2D, M-mode, Doppler and color flow Doppler). Left Ventricle The left ventricle is normal in size. There is mild concentric left ventricular hypertrophy. Left randell tricular systolic function is normal. Ejection Fraction = 60-65%. No regional wall motion abnormalities noted. Right Ventricle The right ventricle is normal size. The right ventricular systolic function is normal. Atria The left atrial size is normal. Right atrial size is normal. 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 The prosthetic mitral valve is well-seated. The prosthetic dotty ral valve appears to open well. There is no mitral regurgitation noted. Tricuspid Valve The tricuspid valve is normal in structure and function. There is moderate tricuspid regurgitation. P ulmonary artery systolic pressure is at least 39 mmHg assuming RA pressure of 3 mmHg. Aortic Valve There is mild aortic sclerosis.;. Mild to moderate aortic regurgitation. Pulmonic Valve The pulmonic valve is not well visualized. Trace to mild pulmonic valvular regurgitation. Great Vessels The aortic root is normal size. Pericardium/Pleura There is no pericardial effusion. Large pleural effusion. Interpretation Summary The left ventricle is normal in size. There is mild concentric left ventricular hypertrophy. Left ventricular systolic function is normal. No regional wall motion abnormalities noted. Ejection Fraction = 60-65%. The right ventricular systolic function is normal. The left atrial size is normal. Right atrial size is normal. There is a bioprosthetic mitral valve. The prosthetic mitral valve is well-seated. The prosthetic mitral valve appears to open well. There is no mitral regurgitation noted. There is moderate tricuspid regurgitation. Pulmonary artery systolic pressure is at least 39 mmHg assuming RA pressure of 3 mmHg There is mild aortic sclerosis.; Mild to moderate aortic regurgitation. Trace to mild pulmonic valvular regurgitation. There is no pericardial effusion. Large pleural effusion Mynor Govea MD 01/11/2019 03:27 PM
--- NOTE | 2019-01-11 15:48 | PN ---
Physical Exam: SUBJECTIVE: Patient seen and examined oob to chair. Feels SOB, fatigued. Admits she does not take her Lasix as prescribed because she does not like urinating all the time. OBJECTIVE: Vital Signs Period Temp Pulse Resp BP Sys/Goldberg Pulse Ox Last 24 Hr 97.3 F-98.3 F 65-120 17-22 100-133/58-89 88-100 GENERAL: The patient is awake, alert, and fully oriented, in no acute distress. LUNGS: Breath sounds diminished at the bases HEART: Regular rate and rhythm, S1, S2 ABDOMEN: Soft, nontender, nondistended LOWER EXTREMITIES: 3+ pitting edema, feet to below knees NEUROLOGICAL: Cranial nerves II through XII grossly intact. Normal speech, gait not observed. Laboratory Results - last 24 hr 01/10/19 01/10/19 01/10/19 19:40 19:40 19:40 WBC 6.2 RBC 4.12 Hgb 10.5 L Hct 33.2 MCV 80.5 MCH 25.5 L MCHC 31.7 L RDW 18.8 H Plt Count 165 MPV 8.7 Absolute Neuts (auto) 5.1 Neutrophils % 82.1 Neutrophils % (Manual) Band Neutrophils % Lymphocytes % 9.3 Lymphocytes % (Manual) Monocytes % 7.5 Monocytes % (Manual) Eosinophils % 0.8 Basophils % 0.3 Hypochromia Platelet Estimate Platelet Comment Anisocytosis Ovalocytes Sin Cells Schistocytes PT with INR INR Sodium 142 Potassium 5.4 H Chloride 107 Carbon Dioxide 25 Anion Gap 10 BUN 29 H Creatinine 0.9 Est GFR (CKD-EPI)AfAm 67.10 Est GFR (CKD-EPI)NonAf 57.90 Random Glucose 116 H Calcium 9.6 Total Bilirubin 1.4 H AST 26 ALT 17 Alkaline Phosphatase 77 Creatine Kinase 70 Troponin I < 0.03 B-Natriuretic Peptide Total Protein 7.3 Albumin 3.7 TSH 01/10/19 01/10/19 01/11/19 19:47 22:37 02:00 WBC RBC Hgb Hct MCV MCH MCHC RDW Plt Count MPV Absolute Neuts (auto) Neutrophils % Neutrophils % (Manual) Band Neutrophils % Lymphocytes % Lymphocytes % (Manual) Monocytes % Monocytes % (Manual) Eosinophils % Basophils % Hypochromia Platelet Estimate Platelet Comment Anisocytosis Ovalocytes [place] Cells Schistocytes PT with INR 33.5 H INR 3.06 H Sodium Potassium Chloride Carbon Dioxide Anion Gap BUN Creatinine Est GFR (CKD-EPI)AfAm Est GFR (CKD-EPI)NonAf Random Glucose Calcium Total Bilirubin AST ALT Alkaline Phosphatase Creatine Kinase Troponin I Cancelled B-Natriuretic Peptide 1932.4 H Total Protein Albumin TSH 01/11/19 01/11/19 01/11/19 02:00 07:03 07:03 WBC 3.7 L RBC 4.02 Hgb 10.2 L Hct 32.3 L MCV 80.2 MCH 25.3 L MCHC 31.5 L RDW 19.8 H Plt Count 152 MPV 10.0 Absolute Neuts (auto) 3.5 Neutrophils % No Result Required. Neutrophils % (Manual) 91.0 H* Band Neutrophils % 2.0 Lymphocytes % No Result Required. Lymphocytes % (Manual) 5.0 L Monocytes % Monocytes % (Manual) 2 L Eosinophils % Basophils % Hypochromia 1+ Platelet Estimate Adequate Platelet Comment Few giant platelets Anisocytosis 2+ Ovalocytes 2+ [place] Cells 1+ Schistocytes 1+ PT with INR INR Sodium 141 Potassium 4.6 Chloride 106 Carbon Dioxide 25 Anion Gap 10 BUN 33 H Creatinine 1.1 Est GFR (CKD-EPI)AfAm 52.65 Est GFR (CKD-EPI)NonAf 45.42 Random Glucose 154 H Calcium 9.3 Total Bilirubin AST ALT Alkaline Phosphatase Creatine Kinase Troponin I < 0.02 B-Natriuretic Peptide Total Protein Albumin TSH 1.63 01/11/19 01/11/19 07:03 07:03 WBC RBC Hgb Hct MCV MCH MCHC RDW Plt Count MPV Absolute Neuts (auto) Neutrophils % Neutrophils % (Manual) Band Neutrophils % Lymphocytes % Lymphocytes % (Manual) Monocytes % Monocytes % (Manual) Eosinophils % Basophils % Hypochromia Platelet Estimate Platelet Comment Anisocytosis Ovalocytes Sin Cells Schistocytes PT with INR 28.2 H INR 2.57 H Sodium Potassium Chloride Carbon Dioxide Anion Gap BUN Creatinine Est GFR (CKD-EPI)AfAm Est GFR (CKD-EPI)NonAf Random Glucose Calcium Total Bilirubin AST ALT Alkaline Phosphatase Creatine Kinase Troponin I < 0.03 B-Natriuretic Peptide Total Protein Albumin TSH Active Medications Generic Name Dose Route Start Last Admin Trade Name Freq PRN Reason Stop Dose Admin Aspirin 81 mg 01/11/19 10:00 01/11/19 09:33 Asa - PO 81 mg DAILY ALE Administration Carvedilol 12.5 mg 01/11/19 07:45 01/11/19 08:03 Coreg - PO 12.5 mg BID ALE Administration Famotidine 20 mg 01/11/19 10:00 01/11/19 09:33 Pepcid - PO 20 mg BID ALE Administration Furosemide 40 mg 01/11/19 06:00 01/11/19 14:22 Lasix Injection - IVPUSH 40 mg BID@0600,1400 ALE Administration Levothyroxine Sodium 25 mcg 01/11/19 07:00 01/11/19 06:00 Synthroid - PO 25 mcg DAILY@0700 ALE Administration Losartan Potassium 25 mg 01/11/19 10:00 01/11/19 09:33 Cozaar - PO 25 mg DAILY ALE Administration Warfarin Sodium 5 mg 01/11/19 18:00 Coumadin - PO DAILY@1800 ALE PCP: Dr. Dominguez Cardiology: Dr. Kyler Larsen, [facility] ASSESSMENT/PLAN 88 year-old female with a PMH significant for HTN, atrial fibrillation on coumadin, descending aortic dissection repair 1995, mechanical mitral valve replacement 1995, tissue mitral valve replacement 2016. Acute on chronic diastolic heart failure --non-compliant with home lasix, significant LE edema, BNP 1932 --01/11 Echo: mild cLVH, LV normal EF 60-65%; RV normal; bioprosthetic MV, well-seated, no MR; moderate TR; pHTN; mild to moderate AI; trace to mild PI --lasix IV 40mg BID --monitor renal function --daily weights --strict I&Os --pre post --telemetry monitoring Mitral valve replacement --continue ASA Atrial fibrillation --continue carvedilol --on warfarin, INR therapeutic, continue current daily dosing Hypertension --continue losartan, carvedilol FEN Fluids: PO intake adequate Electrolytes: replete as indicated Nutrition: low sodium DVT prophylaxis: therapeutic INR on warfarin, continue Physical therapy Dispo: continues to require inpatient care. Full code. Visit type - Emergency Visit Emergency Visit: Yes ED Registration Date: 01/11/19 Care time: The patient presented to the Emergency Department on the above date and was hospitalized for further evaluation of their emergent condition. - New Patient This patient is new to me today: Yes Date on this admission: 01/11/19 - Critical Care Critical Care patient: No
[2019-01-11] MEDS ORDERED: WARFARIN NA 5 MG TABLET (UD) PO SCH (18:00)
[2019-01-12] MEDS: FUROSEMIDE 40 MG/4 ML INJECTABLE VIAL IVPUSH SCH ×2 (06:02→14:27)
[2019-01-12] MEDS: LEVOTHYROXINE NA 25 MCG TABLET (FP) PO SCH (06:02)
--- NOTE | 2019-01-12 07:53 | PN ---
Physical Exam: SUBJECTIVE: Patient seen and examined oob to chair. Walked with PT today. OBJECTIVE: Vital Signs Period Temp Pulse Resp BP Sys/Goldberg Pulse Ox Last 24 Hr 97.5 F-98.3 F 77-101 17-20 94-111/55-65 95-99 GENERAL: The patient is awake, alert, and fully oriented, in no acute distress. LUNGS: Breath sounds diminished at the bases HEART: Regular rate and rhythm, S1, S2 ABDOMEN: Soft, nontender, nondistended LOWER EXTREMITIES: 2+ pitting edema, improved NEUROLOGICAL: Cranial nerves II through XII grossly intact. Normal speech, gait not observed. Laboratory Results - last 24 hr 01/11/19 01/11/19 01/11/19 07:03 07:03 07:03 WBC 3.7 L RBC 4.02 Hgb 10.2 L Hct 32.3 L MCV 80.2 MCH 25.3 L MCHC 31.5 L RDW 19.8 H Plt Count 152 MPV 10.0 Absolute Neuts (auto) 3.5 Neutrophils % No Result Required. Neutrophils % (Manual) 91.0 H* Band Neutrophils % 2.0 Lymphocytes % No Result Required. Lymphocytes % (Manual) 5.0 L Monocytes % (Manual) 2 L Hypochromia 1+ Platelet Estimate Adequate Platelet Comment Few giant platelets Anisocytosis 2+ Ovalocytes 2+ Sin Cells 1+ Schistocytes 1+ PT with INR INR Sodium 141 Potassium 4.6 Chloride 106 Carbon Dioxide 25 Anion Gap 10 BUN 33 H Creatinine 1.1 Est GFR (CKD-EPI)AfAm 52.65 Est GFR (CKD-EPI)NonAf 45.42 Random Glucose 154 H Calcium 9.3 Troponin I < 0.03 TSH 1.63 01/11/19 07:03 WBC RBC Hgb Hct MCV MCH MCHC RDW Plt Count MPV Absolute Neuts (auto) Neutrophils % Neutrophils % (Manual) Band Neutrophils % Lymphocytes % Lymphocytes % (Manual) Monocytes % (Manual) Hypochromia Platelet Estimate Platelet Comment Anisocytosis Ovalocytes Sin Cells Schistocytes PT with INR 28.2 H INR 2.57 H Sodium Potassium Chloride Carbon Dioxide Anion Gap BUN Creatinine Est GFR (CKD-EPI)AfAm Est GFR (CKD-EPI)NonAf Random Glucose Calcium Troponin I TSH Active Medications Generic Name Dose Route Start Last Admin Trade Name Freq PRN Reason Stop Dose Admin Aspirin 81 mg 01/11/19 10:00 01/11/19 09:33 Asa - PO 81 mg DAILY ALE Administration Carvedilol 12.5 mg 01/11/19 07:45 01/11/19 21:19 Coreg - PO Not Given BID ALE Famotidine 20 mg 01/11/19 10:00 01/11/19 21:17 Pepcid - PO 20 mg BID ALE Administration Furosemide 40 mg 01/11/19 06:00 01/12/19 06:02 Lasix Injection - IVPUSH 40 mg BID@0600,1400 ALE Administration Levothyroxine Sodium 25 mcg 01/11/19 07:00 01/12/19 06:02 Synthroid - PO 25 mcg DAILY@0700 ALE Administration Losartan Potassium 25 mg 01/11/19 10:00 01/11/19 09:33 Cozaar - PO 25 mg DAILY ALE Administration Warfarin Sodium 5 mg 01/11/19 18:00 01/11/19 18:04 Coumadin - PO 5 mg DAILY@1800 ALE Administration PCP: Dr. Dominguez Cardiology: Dr. Kyler Larsen, [facility] ASSESSMENT/PLAN 88 year-old female with a PMH significant for HTN, atrial fibrillation on coumadin, diastolic HF. Acute on chronic diastolic heart failure --non-compliant with home lasix, significant LE edema, BNP 1932, moderate bilateral pleural effusions on CXR --01/11 Echo: mild cLVH, LV normal EF 60-65%; RV normal; bioprosthetic MV, well-seated, no MR; moderate TR; pHTN; mild to moderate AI; trace to mild PI --continue lasix IV 40mg BID --monitor renal function --daily weights: down 1.3kg --strict I&Os --pre post: walked 130 feet off O2 desatted to 86% --telemetry monitoring Mitral valve replacement --continue ASA Atrial fibrillation --continue carvedilol --INR 4.23, hold warfarin Hypertension --continue losartan, carvedilol FEN Fluids: PO intake adequate Electrolytes: replete as indicated Nutrition: low sodium DVT prophylaxis: supratherapeutic INR, hold warfarin Physical therapy Dispo: continues to require inpatient care. Full code. Visit type - Emergency Visit Emergency Visit: Yes ED Registration Date: 01/11/19 Care time: The patient presented to the Emergency Department on the above date and was hospitalized for further evaluation of their emergent condition. - New Patient This patient is new to me today: No - Critical Care Critical Care patient: No
[2019-01-12 08:22] LABS: BASO % 0.2 % (0-2.0); HEMATOCRIT 29.7 % (32.4-45.2); HEMOGLOBIN 9.6 GM/dl (10.7-15.3); MCHC 32.3 g/dl (32.0-36.0); MEAN CELL VOLUME 80.5 fl (80-96); MEAN PLT VOLUME 8.8 fl (7.5-11.1); MONO % 6.5 % (3.8-10.2); NEUT % 88.3 % (42.8-82.8); PLATELET COUNT 148 K/MM3 (134-434); RBC 3.69 M/mm3 (3.60-5.2); RDW 19.3 % (11.6-15.6); WHITE BLOOD COUNT 7.9 K/mm3 (4.0-10.8)
[2019-01-12 08:50] LABS: PROTHROMBIN TIME (PATIENT) 46.1 SEC (10.2-13.0)
[2019-01-12 08:51] LABS: ALBUMIN 3.5 g/dl (3.4-5.0); BILIRUBIN,TOTAL 1.1 mg/dl (0.2-1); CALCIUM 8.6 mg/dl (8.5-10); CREATININE 1.1 mg/dl (0.55-1.3); INR 4.23 (0.82-1.09); MAGNESIUM 1.9 mg/dL (1.8-2.4); POTASSIUM 4.1 mmol/L (3.5-5.1); TOT PROT 6.7 g/dl (6.4-8.2)
[2019-01-12] MEDS: LOSARTAN POTASSIUM 25 MG TABLET PO SCH (10:07)
[2019-01-12] MEDS: FAMOTIDINE 20 MG TABLET PO SCH ×2 (10:07→21:02)
[2019-01-12] MEDS: CARVEDILOL 12.5 MG TABLET (FP) PO SCH ×2 (10:07→21:02)
[2019-01-12] MEDS: ASPIRIN 81 MG CHEWABLE TABLETS PO SCH (10:07)
[2019-01-13] MEDS: LEVOTHYROXINE NA 25 MCG TABLET (FP) PO SCH (06:24)
[2019-01-13] MEDS: FUROSEMIDE 40 MG/4 ML INJECTABLE VIAL IVPUSH SCH (06:24)
--- NOTE | 2019-01-13 07:39 | PN ---
Physical Exam: SUBJECTIVE: Patient seen and examined oob to chair. Breathing continues to improve. OBJECTIVE: Vital Signs Period Temp Pulse Resp BP Sys/Goldberg Pulse Ox Last 24 Hr 97.5 F-98.8 F 62-95 17-18 93-106/53-65 96-100 GENERAL: The patient is awake, alert, and fully oriented, in no acute distress. LUNGS: Breath sounds diminished at the bases HEART: Regular rate and rhythm, S1, S2 ABDOMEN: Soft, nontender, nondistended LOWER EXTREMITIES: 2+ pitting edema, improved NEUROLOGICAL: Cranial nerves II through XII grossly intact. Normal speech, gait not observed. Laboratory Results - last 24 hr 01/12/19 01/12/19 01/12/19 07:58 07:58 07:58 WBC 7.9 RBC 3.69 Hgb 9.6 L Hct 29.7 L MCV 80.5 MCH 26.0 MCHC 32.3 RDW 19.3 H Plt Count 148 MPV 8.8 Absolute Neuts (auto) 7.0 Neutrophils % 88.3 H Lymphocytes % 5.0 L Monocytes % 6.5 Eosinophils % 0.0 Basophils % 0.2 PT with INR 46.1 H INR 4.23 H* Sodium 144 Potassium 4.1 Chloride 105 Carbon Dioxide 30 Anion Gap 9 BUN 44 H Creatinine 1.1 Est GFR (CKD-EPI)AfAm 52.65 Est GFR (CKD-EPI)NonAf 45.42 Random Glucose 99 Calcium 8.6 Magnesium 1.9 Total Bilirubin 1.1 H AST 20 ALT 15 Alkaline Phosphatase 63 D Total Protein 6.7 Albumin 3.5 Active Medications Generic Name Dose Route Start Last Admin Trade Name Gloria PRN Reason Stop Dose Admin Aspirin 81 mg 01/11/19 10:00 01/12/19 10:07 Asa - PO 81 mg DAILY ALE Administration Carvedilol 12.5 mg 01/11/19 07:45 01/12/19 21:02 Coreg - PO 12.5 mg BID ALE Administration Famotidine 20 mg 01/11/19 10:00 01/12/19 21:02 Pepcid - PO 20 mg BID ALE Administration Furosemide 40 mg 01/11/19 06:00 01/13/19 06:24 Lasix Injection - IVPUSH 40 mg BID@0600,1400 ALE Administration Levothyroxine Sodium 25 mcg 01/11/19 07:00 01/13/19 06:24 Synthroid - PO 25 mcg DAILY@0700 ALE Administration Losartan Potassium 25 mg 01/11/19 10:00 01/12/19 10:07 Cozaar - PO 25 mg DAILY ALE Administration ASSESSMENT/PLAN 88 year-old female with a PMH significant for HTN, atrial fibrillation on coumadin, diastolic HF. Acute on chronic diastolic heart failure Hypoxic respiratory failure --01/11 Echo: mild cLVH, LV normal EF 60-65%; RV normal; bioprosthetic MV, well-seated, no MR; moderate TR; pHTN; mild to moderate AI; trace to mild PI --CXR today: bilateral pleural effusions persist --daily weights: down 2.3kg, lower extremity edema significantly improved --Cr bumping up slightly, will convert lasix to PO 40mg BID --pre post: 01/12 walked 130 feet off O2 desatted to 86%; repeat daily Mitral valve replacement --continue ASA Atrial fibrillation --continue carvedilol --INR 3.23 Hypertension --continue losartan, carvedilol FEN Fluids: PO intake adequate Electrolytes: replete as indicated Nutrition: low sodium DVT prophylaxis: supratherapeutic INR, continue to hold warfarin Physical therapy Dispo: continues to require inpatient care. Full code. Visit type - Emergency Visit Emergency Visit: Yes ED Registration Date: 01/10/19 Care time: The patient presented to the Emergency Department on the above date and was hospitalized for further evaluation of their emergent condition. - New Patient This patient is new to me today: No - Critical Care Critical Care patient: No
[2019-01-13 08:53] LABS: INR 3.23 (0.82-1.09); PROTHROMBIN TIME (PATIENT) 35.4 SEC (10.2-13.0)
[2019-01-13 09:34] LABS: BASO % 0.5 % (0-2.0); EOS % 0.7 % (0-4.5); HEMATOCRIT 31.2 % (32.4-45.2); HEMOGLOBIN 9.4 GM/dl (10.7-15.3); LYMPH % 7.8 % (8-40); MCH 24.5 pg (25.7-33.7); MEAN CELL VOLUME 81.5 fl (80-96); MEAN PLT VOLUME 9.2 fl (7.5-11.1); MONO % 8.1 % (3.8-10.2); NEUT % 82.9 % (42.8-82.8); PLATELET COUNT 165 K/MM3 (134-434); RBC 3.83 M/mm3 (3.60-5.2); RDW 19.1 % (11.6-15.6); WHITE BLOOD COUNT 5.6 K/mm3 (4.0-10.8)
[2019-01-13 09:41] LABS: ALBUMIN 3.4 g/dl (3.4-5.0); CREATININE 1.3 mg/dl (0.55-1.3); MAGNESIUM 1.8 mg/dL (1.8-2.4); TOT PROT 6.7 g/dl (6.4-8.2)
[2019-01-13] MEDS: ASPIRIN 81 MG CHEWABLE TABLETS PO SCH (10:02)
[2019-01-13] MEDS: FAMOTIDINE 20 MG TABLET PO SCH ×2 (10:02→22:28)
[2019-01-13] MEDS: CARVEDILOL 12.5 MG TABLET (FP) PO SCH ×2 (10:02→22:28)
[2019-01-13] MEDS: LOSARTAN POTASSIUM 25 MG TABLET PO SCH (10:02)
[2019-01-13 17:24] VITALS: BMI 25.2
[2019-01-13] MEDS ORDERED: ALBUTEROL SO4 2.5/IPRATROPIUM 0.5 INH SOL 3 ML VIAL.NEB. NEB ONE (20:46)
[2019-01-14] MEDS: FUROSEMIDE 40 MG TABLET (FP) PO SCH ×2 (06:15→14:05)
[2019-01-14] MEDS: LEVOTHYROXINE NA 25 MCG TABLET (FP) PO SCH (06:16)
[2019-01-14] MEDS: ASPIRIN 81 MG CHEWABLE TABLETS PO SCH (08:00)
[2019-01-14] MEDS: ALBUTEROL SO4 2.5/IPRATROPIUM 0.5 INH SOL 3 ML VIAL.NEB. NEB SCH ×2 (08:00→14:10)
[2019-01-14 08:32] LABS: BASO % 0.6 % (0-2.0); EOS % 1.3 % (0-4.5); HEMATOCRIT 31.3 % (32.4-45.2); HEMOGLOBIN 9.1 GM/dl (10.7-15.3); LYMPH % 12.1 % (8-40); MCH 24.4 pg (25.7-33.7); MCHC 29.2 g/dl (32.0-36.0); MEAN CELL VOLUME 83.6 fl (80-96); MEAN PLT VOLUME 8.9 fl (7.5-11.1); MONO % 10.5 % (3.8-10.2); NEUT % 75.5 % (42.8-82.8); PLATELET COUNT 170 K/MM3 (134-434); RBC 3.75 M/mm3 (3.60-5.2); RDW 18.7 % (11.6-15.6); WHITE BLOOD COUNT 4.6 K/mm3 (4.0-10.8)
[2019-01-14 08:34] LABS: INR 1.92 (0.82-1.09); PROTHROMBIN TIME (PATIENT) 21.2 SEC (10.2-13.0)
[2019-01-14 08:44] LABS: ALBUMIN 3.3 g/dl (3.4-5.0); BILIRUBIN,TOTAL 1.1 mg/dl (0.2-1); CREATININE 1.1 mg/dl (0.55-1.3); MAGNESIUM 1.8 mg/dL (1.8-2.4); POTASSIUM 4.1 mmol/L (3.5-5.1); TOT PROT 6.5 g/dl (6.4-8.2)
[2019-01-14] MEDS: LOSARTAN POTASSIUM 25 MG TABLET PO SCH (10:04)
[2019-01-14] MEDS: CARVEDILOL 12.5 MG TABLET (FP) PO SCH (10:04)
[2019-01-14] MEDS: FAMOTIDINE 20 MG TABLET PO SCH (10:04)
--- NOTE | 2019-01-14 12:16 | DS ---
Physical Exam: SUBJECTIVE: Patient seen and examined oob to chair. Feels ready to go home. Discussed having home O2 set up, she is agreeable. OBJECTIVE: Vital Signs Period Temp Pulse Resp BP Sys/Goldberg Pulse Ox Last 24 Hr 97.8 F-98.6 F 87-105 - 84-109/45-67 87-100 PHYSICAL EXAM GENERAL: The patient is awake, alert, and fully oriented, in no acute distress. LUNGS: Breath sounds diminished at the bases HEART: Regular rate and rhythm, S1, S2 ABDOMEN: Soft, nontender, nondistended LOWER EXTREMITIES: 2+ pitting edema, improved NEUROLOGICAL: Cranial nerves II through XII grossly intact. Normal speech, gait not observed. LABS Laboratory Results - last 24 hr 01/14/19 01/14/19 01/14/19 07:10 07:10 07:10 WBC 4.6 RBC 3.75 Hgb 9.1 L Hct 31.3 L MCV 83.6 MCH 24.4 L MCHC 29.2 L RDW 18.7 H Plt Count 170 MPV 8.9 Absolute Neuts (auto) 3.4 Neutrophils % 75.5 Lymphocytes % 12.1 Monocytes % 10.5 H Eosinophils % 1.3 Basophils % 0.6 PT with INR 21.2 H INR 1.92 H Sodium 144 Potassium 4.1 Chloride 103 Carbon Dioxide 33 H Anion Gap 8 BUN 40 H Creatinine 1.1 Est GFR (CKD-EPI)AfAm 52.65 Est GFR (CKD-EPI)NonAf 45.42 Random Glucose 100 Calcium 9.0 Magnesium 1.8 Total Bilirubin 1.1 H AST 21 ALT 16 Alkaline Phosphatase 59 Total Protein 6.5 Albumin 3.3 L Date of Admission:01/10/19 Date of Discharge: 01/14/19 Pre hospital course This is a 88 y/o woman with a significant medical history of HTN, diastolic HF, afib on coumadin, and mitral valve replacement. Hospital course Acute on chronic diastolic heart failure --01/11 Echo: mild cLVH, LV normal EF 60-65%; RV normal; bioprosthetic MV, well-seated, no MR; moderate TR; pHTN; mild to moderate AI; trace to mild PI --treated with IV lasix with resolution of lower extremity edema and SOB CODP, chronic Hypoxic respiratory failure, multifactorial --multifactorial: heart failure +/- COPD --Serial CXRs showed persistent bilateral pleural effusions seen on previous xrays; chronic finding --01/14 on date of discharge: 93% on room air at rest, 87% on room air with flat surface ambulation, 93% on 2L NC with flat surface ambulation --Home oxygen ordered due to diagnosis of hypoxic respiratory failure secondary to chronic COPD and acute on chronic diastolic heart failure. Patient saturation 87% with flat surface ambulation on room air. Mitral valve replacement --continue ASA Atrial fibrillation --continue carvedilol --INR was supratherapeutic on admission; coumadin was held, restarted when INR dropped to 1.92 Hypertension --continued losartan, carvedilol Minutes to complete discharge: 35 Discharge Summary Reason For Visit: ASTHMA, CHF Current Active Problems Asthma (Acute) Bilateral lower extremity edema (Acute) Congestive heart failure (Acute) Dysphagia (Acute) HTN (hypertension) (Acute) Hx of mitral valve repair (Acute) Hyperkalemia (Acute) Condition: Improved - Instructions Diet, Activity, Other Instructions: Arrangements have been made for you to have oxygen in your home to use as needed. REMEMBER TO TAKE YOUR LASIX EVERY DAY!!!!!! You should follow up with Dr. Dominguez within 1-2 weeks of your discharge. Referrals: Vitaliy Dominguez MD [Primary Care Provider] - Disposition: HOME - Home Medications Comprehensive Discharge Medication List: Ambulatory Orders Aspirin [Geno Chewable Aspirin] 81 mg PO DAILY 05/22/17 Losartan Potassium [Cozaar -] 50 mg PO DAILY 05/22/17 Carvedilol [Coreg -] 12.5 mg PO BID #30 tablet 05/26/17 Famotidine [Pepcid -] 20 mg PO BID tablet 05/26/17 Furosemide [Lasix -] 40 mg PO DAILY tablet 05/26/17 Spironolactone [Aldactone -] 25 mg PO DAILY #30 tablet 05/26/17 Warfarin Na [Coumadin -] 5 mg PO DAILY@1800 #30 tablet 05/26/17 Simvastatin [Zocor -] 20 mg PO DAILY 06/21/17 Montelukast Na [Singulair -] 10 mg PO HS 01/10/19 Tiotropium [place] [Spiriva] 1 inh PO DAILY 01/13/19 This patient is new to me today: No Emergency Visit: Yes ED Registration Date: 01/10/19 Care time: The patient presented to the Emergency Department on the above date and was hospitalized for further evaluation of their emergent condition. Critical Care patient: No - Discharge Referral Referred to [facility] Med P.C[facility] Yes Physician Referral: Vitaliy Dominguez MD (Int Med)
[2019-01-14 14:55] VITALS: BP 98/50; PULSE 100; TEMP 98.1
== END 2019-01-14 17:30 | disposition home or self-care (01) | DRG 291 ==
LOC: FER 19:22 → UNDOADMOB 22:03 → FM/S 22:03 → UNDOADMOB 22:04 → FM/S 22:11 → INTOOBSV 01-11 06:13 → OBSVTOIN 01-11 06:13
PROVIDERS: ADMIT Internal Medicine; ATTEND Nurse Practitioner Acute Care
DX: I11.0 Hypertensive heart disease with heart failure (principal); J96.91 Respiratory failure, unspecified with hypoxia; I50.23 Acute on chronic systolic (congestive) heart failure; I48.91 Unspecified atrial fibrillation; J44.9 Chronic obstructive pulmonary disease, unspecified; I27.20 Pulmonary hypertension, unspecified; E87.5 Hyperkalemia; Z85.3 Personal history of malignant neoplasm of breast; E78.5 Hyperlipidemia, unspecified; E03.9 Hypothyroidism, unspecified; Z87.891 Personal history of nicotine dependence; Z95.4 Presence of other heart-valve replacement; F32.9 Major depressive disorder, single episode, unspecified; F41.9 Anxiety disorder, unspecified; R13.10 Dysphagia, unspecified; I36.1 Nonrheumatic tricuspid (valve) insufficiency
CPT/HCPCS: 36415; 71045-TC-FY; 71046-TC-FY; 80048; 80053; 82550; 83735; 83880; 84443; 84484; 85025; 85610; 93005; 93306-TC; 94640; 94761; 97116-GP; 97162-GP; 99283-25; G0378

== ENCOUNTER 2020-04-23 13:11 | Emergency (ER) | payer OTHER, MEDICARE ==
--- NOTE | 2020-04-23 13:39 | PDOC ---
History of Present Illness - General Chief Complaint: Redness To Affected Area Stated Complaint: WOUND OF BUTTOCK Time Seen by Provider: 04/23/20 13:18 - History of Present Illness Initial Comments: 04/23/20 13:36 89 F with h/o HTN, Afib (on Coumadin), Aortic Aneurysm Repair ([facility] 96), Mitral Valve Repair ([facility]), presenting to ED with ulcer to R posterior thigh. Pt's daughter states she first noticed it about 2 weeks ago when it appeared as a blister. Since then, it has opened up and gotten progressively larger. She notes some redness around the ulcer but no purulent drainage. She has been applying neosporin to it. No F/C. Pt is not bedbound but does sit a lot during the day. No other ulcers or wounds noted. Past History - Medical History Allergies/Adverse Reactions: Allergies Allergy/AdvReac Type Severity Reaction Status Date / Time No Known Allergies Allergy Verified 01/10/19 19:30 Home Medications: Ambulatory Orders Aspirin [Geno Chewable Aspirin] 81 mg PO DAILY 05/22/17 Losartan Potassium [Cozaar -] 50 mg PO DAILY 05/22/17 Carvedilol [Coreg -] 12.5 mg PO BID #30 tablet 05/26/17 Famotidine [Pepcid -] 20 mg PO BID tablet 05/26/17 Simvastatin [Zocor -] 20 mg PO HS 06/21/17 Montelukast Na [Singulair -] 10 mg PO HS 01/10/19 Tiotropium [place] [Spiriva] 1 inh PO DAILY 01/13/19 Furosemide [Lasix -] 40 mg PO BID #60 tablet 01/14/19 Potassium Chloride [K-Dur -] 20 meq PO DAILY #30 tablet.er 01/14/19 Clindamycin [Cleocin -] 300 mg PO Q6HPO #28 capsule 04/23/20 Warfarin Na [Coumadin -] 5 mg PO SUTUTHSA 04/23/20 Warfarin Na [Coumadin] 2.5 mg PO MOWEFR 04/23/20 Anemia: No Asthma: Yes (DX IN HER 30'S-STABLE) Cancer: Yes (LEFT BREAST CA-DX 2009) Cardiac Disorders: Yes (VALVE DISEASE) CVA: No COPD: No CHF: Yes Dementia: No Diabetes: No GI Disorders: No Disorders: No HTN: Yes Hypercholesterolemia: Yes (DX 2009) Liver Disease: No Seizures: No Thyroid Disease: Yes (hypo) - Surgical History Abdominal Surgery: Yes Appendectomy: No Cardiac Surgery: Yes (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 No weakness. HEAD, EYES, EARS, NOSE AND THROAT: No change in vision. No ear pain or discharge. No sore throat. CARDIOVASCULAR: No chest pain, no shortness of breath, no loss of consciousness RESPIRATORY: No cough, wheezing, or hemoptysis. GASTROINTESTINAL: No nausea, vomiting, diarrhea or constipation. GENITOURINARY: No dysuria, frequency, or change in urination. MUSCULOSKELETAL: No joint or muscle swelling or pain. No neck or back pain. SKIN: + Ulcer to posterior R thigh NEUROLOGIC: No vertigo, no change in strength/sensation. ENDOCRINE: No increased thirst. No abnormal weight change. HEMATOLOGIC/LYMPHATIC: No anemia, easy bleeding, or history of blood clots. ALLERGIC/IMMUNOLOGIC: No hives or skin allergy. *Physical Exam - Physical Exam 04/23/20 13:37 "GENERAL: Awake, alert, and fully oriented, in no acute distress. HEAD: No signs of trauma EYES: PERRLA, EOMI, sclera anicteric, conjunctiva clear ENT: Auricles normal inspection, hearing grossly normal, nares patent, oropharynx clear without exudates. Moist mucosa NECK: Nontender, no stepoffs, Normal ROM, supple, no lymphadenopathy, JVD, or masses LUNGS: Breath sounds equal, clear to auscultation bilaterally. No wheezes, and no crackles HEART: Regular rate and rhythm, normal S1 and S2, no murmurs, rubs or gallops ABDOMEN: Soft, nontender, normoactive bowel sounds. No guarding, no rebound. No masses EXTREMITIES: Normal range of motion, no edema. No clubbing or cyanosis. No cords, erythema, or tenderness NEUROLOGICAL: Cranial nerves II through XII intact. 5/5 strength and sensation in all extremities, Normal speech, normal gait, normal cerebellar function SKIN: + posterior R thigh 2-3 cm pressure ulcer, stage 2, with mild surrounding erythema Medical Decision Making - Medical Decision Making 04/23/20 13:38 89 F with stage 2 pressure ulcer R posterior thigh, mild erythema suggestive of cellulitis. - Clindamycin - Refer to wound care Pt is well appearing, with normal vitals. Clinically stable for DC at this time. I discussed the physical exam findings, ancillary test results and final diagnoses with the patient. I answered all of the patient's questions. The patient was satisfied with the care received and felt comfortable with the discharge plan and treatment plan. The patient agrees to follow up with the primary care physician within 24-72 hours. Discharge - Discharge Information Problems reviewed: Yes Clinical Impression/Diagnosis: Pressure ulcer, Cellulitis Condition: Good Disposition: HOME - Additional Discharge Information Prescriptions: Clindamycin [Cleocin -] 300 mg PO Q6HPO #28 capsule - Follow up/Referral Referrals: Vitaliy Dominguez MD [Primary Care Provider] - John Leiva DO [Staff Physician] - - Patient Discharge Instructions Patient Printed Discharge Instructions: How to Prevent Pressure Ulcers, DI for Pressure Sores Additional Instructions: Take the antibiotics as prescribed to treat the skin infection. Avoid placing any direct pressure on the wound. A donut cushion may be helpful when sitting. If you notice increasing redness, swelling, drainage, fevers, or any other concerning symptoms, return to the ER immediately. Otherwise, follow up with a family development extension specialist. Call the number provided to make an appointment. - Post Discharge Activity
[2020-04-23 13:45] VITALS: BP 88/53; PULSE 95; TEMP 97.9; BMI 23.8
== END 2020-04-23 13:49 | disposition home or self-care (01) ==
LOC: FER 13:11
DX: L89.319 Pressure ulcer of right buttock, unspecified stage (principal)
CPT/HCPCS: 99282-25

== ENCOUNTER 2020-05-21 14:10 | Inpatient (IN) | payer OTHER, MEDICARE ==
--- OUTSIDE RECORDS SUMMARY | 2020-05-21 14:22 | XMS ---
:1930 Author Organization [facility] Care Team Providers Name Role Phone ALDOJEROME TERRELL Unavailable Unavailable JOHN WHIPPLE Unavailable Unavailable ANH [facility] Unavailable Unavailable Jim Unavailable Unavailable Chandbelinda Unavailable Unavailable Chandy Unavailable Unavailable Chandy Unavailable Unavailable Chandy Unavailable Unavailable Fader, M Unavailable Fader, M Unavailable Fader, M Unavailable Fader, M Unavailable Fader, M Unavailable Fader, M Unavailable Fader, M Unavailable Fader, M Unavailable Fader, M Unavailable Fader, M Unavailable Fader, M Unavailable Fader, M Unavailable Fader, M Unavailable Re-disclosure Warning The records that you are about to access may contain information from federally- assisted alcohol or drug abuse programs. If such information is present, then the following federally mandated warning applies: This information has been disclosed to you from records protected by federal confidentiality rules (42 CFR part 2). The federal rules prohibit you from making any further disclosure of this information unless further disclosure is expressly permitted by the written consent of the person to whom it pertains or as otherwise permitted by 42 CFR part 2. A general authorization for the release of medical or other information is NOT sufficient for this purpose. The Federal rules restrict any use of the information to criminally investigate or prosecute any alcohol or drug abuse patient.The records that you are about to access may contain highly sensitive health information, the redisclosure of which is protected by Article 27-F of the [facility] Public Health law. If you continue you may haveaccess to information: Regarding HIV / AIDS; Provided by facilities licensed or operated by the [facility] Office of Mental Health; or Provided by the [facility] Office for People With Developmental Disabilities. If such information is present, then the following [facility] mandated warning applies: This information has been disclosed to you from confidential records which are protected by state law. State law prohibits you from making any further disclosure of this information without the specific written consent of the person to whom it pertains, or as otherwise permitted by law. Any unauthorized further disclosure in violation of state law may result in a fine or residential sentence or both. A general authorization for the release of medical or other information is NOT sufficient authorization for further disclosure. Encounters Encounter Providers Location Date Indications Data Source(s ) Attender: Vitaliy 05/04/2020 [facility] ( [facility] 12:00:00 AM EDT [facility], PC) Office Attender: Vitaliy Dominguez 05/04/2020 12:00:00 AM E DT [facility] Office Attender: Vitaliy Dominguez 05/04/2020 12:00:00 AM E DT [facility] Office Attender: Vitaliy Dominguez 05/04/2020 12:00:00 AM E DT [facility] Office Attender: Vitaliy Dominguez 05/04/2020 12:00:00 AM E DT [facility] Office Attender: Vitaliy Dominguez 05/04/2020 12:00:00 AM E DT [facility] Office Attender: Vitaliy Dominguez 05/04/2020 12:00:00 AM E DT [facility] Office Attender: Vitaliy Dominguez 03/21/2020 12:00:00 AM E DT [facility] Office Attender: Vitaliy Dominguez 03/21/2020 12:00:00 AM E DT [facility] Office Attender: Vitaliy Dominguez 03/21/2020 12:00:00 AM E DT [facility] Office Attender: Vitaliy Dominguez 03/21/2020 12:00:00 AM E DT [facility] Office Attender: Vitaliy Dominguez 03/21/2020 12:00:00 AM E DT [facility] Office Attender: Vitaliy Dominguez 03/21/2020 12:00:00 AM E DT [facility] Office Attender: Vitaliy Dominguez 02/16/2020 12:00:00 AM E DT [facility] Office Attender: Vitaliy Dominguez 02/16/2020 12:00:00 AM E DT [facility] Office Attender: Vitaliy Dominguez 02/16/2020 12:00:00 AM E DT [facility] Office Attender: Vitaliy Dominguez 02/16/2020 12:00:00 AM E DT [facility] Office Attender: Vitaliy Dominguez 02/16/2020 12:00:00 AM E DT [facility] Office Attender: Vitaliy Dominguez 02/16/2020 12:00:00 AM E DT [facility] Office Outpatient Attender: Valdo 02/17/2019 06:00:00 R06.02 [facility] ChandyAdmitter: Valdo FLORIAN [facility] ArieyReferrer: Valdo Fernandez R06.02 Outpatient Attender: ALEXANDRO 01/27/2019 06:00:00 [facility].0 [facility] ANH I42.0 Outpatient Attender: [id number] SOLE 01/19/2019 01:09:00 I4 2.0 [facility] Admitter: [id number] PM EDT [facility] JOHN WHIPPLEReferrer: JEROME Johnson I42.0 Immunizations Vaccine Date Status Description Data Source(s) Pneumococcal conjugate 12/06/2014 completed [facility] ([facility] 12:00:00 AM EDT Medical, PC) Pneumococcal conjugate 12/06/2014 completed [facility] ([facility] PC[facility] 13 12:00:00 AM EDT Medical, PC) Pneumococcal conjugate 12/06/2014 completed [facility] ([facility] PCV 13 12:00:00 AM EDT Medical, PC) zoster 08/16/2014 completed [facility] ([facility] 12:00:00 AM [facility] Medical, ) zoster 08/16/2014 completed [facility] ([facility] 12:00:00 AM EST Medical, PC) zoster 08/16/2014 completed [facility] ([facility] 12:00:00 AM [facility], ) Medications Medication Brand Start Product Dose Route Administrative Pharmacy [facility] Indications Reaction Description Data Name Date Form Instructions Instructions Source(s) Potassium POTASS 04/20/ CAPSULE, 36 complet POTA SSIUM [facility] (St Chloride 10 IUM 2019 EXTENDED ed CHLORIDE 's MEQ CHLORI 12:00: RELEASE Medical, Extended DE:312 00 AM PC) Release 504 EDT Oral Capsule POTASSIUM CHLORIDE:31 2504 Methylpredn METHYL 03/28/ TABLET 21 complet METH YLPREDNI [facility] (St isolone 4 PREDNI 2019 ed SOLONE 's MG Oral SOLONE 12:00: Medical, Tablet :09370 00 AM PC) METHYLPREDN 6 EDT ISOLONE:259 966 Cephalexin CEPHAL 03/21/ CAPSULE 40 complet CEPH ALEXIN [facility] (St 250 MG Oral EXIN:3 2019 ed 's Capsule 43853 12:00: Medical, CEPHALEXIN: 00 AM PC) [id number] EDT Cephalexin CEPHAL 03/21/ CAPSULE 40 complet CEPH ALEXIN [facility] (St 250 MG Oral EXIN:3 2019 ed 's Capsule 09021 12:00: Medical, CEPHALEXIN: 00 AM PC) 890035 EDT Simvastatin SIMVAS 03/14/ TABLET 90 complet SIMV ASTATIN [facility] (St 20 MG Oral TATIN: 2020 ed 's Tablet [id number] 12:00: Medical, SIMVASTATIN 00 AM PC) :[id number] EDT Simvastatin SIMVAS 03/14/ TABLET 90 complet SIMV ASTATIN [facility] (St 20 MG Oral TATIN: 2019 ed 's Tablet [id number] 12:00: Medical, SIMVASTATIN 00 AM PC) :[id number] EDT carvedilol CARVED 03/10/ TABLET 180 complet CARVE DILOL [facility] (St 12.5 MG ILOL:2 2019 ed 's Oral Tablet 16977 12:00: Medic al, CARVEDILOL: 00 AM PC) [id number] EDT carvedilol CARVED 03/10/ TABLET 180 complet CARVE DILOL [facility] (St 12.5 MG ILOL:2 2019 ed 's Oral Tablet 55647 12:00: Medic al, CARVEDILOL: 00 AM PC) 19991101 EDT Metolazone METOLA 02/27/ TABLET 30 complet METOL AZONE [facility] (St 2.5 MG Oral ZONE:1 2019 ed 's Tablet 29761 12:00: Medical, METOLAZONE: 00 AM PC) [id number] EDT Metolazone METOLA 02/27/ TABLET 30 complet METOL AZONE [facility] (St 2.5 MG Oral ZONE:1 2019 ed 's Tablet 53816 12:00: Medical, METOLAZONE: 00 AM PC) [id number] EDT 60 ACTUAT SPIRIV /25/ AEROSOL 4 complet SPIRI VA [facility] (St tiotropium A 2019 ed RESPIMAT 60 Ele hn's 0.0025 RESPIM 12:00: ACT Medical, MG/ACTUAT AT 60 00 AM PC) Metered ACT:15 EDT Dose 88662 Inhaler [Spiriva] SPIRIVA RESPIMAT 60 ACT:[id number] 60 ACTUAT SPIRIV 06/25/ AEROSOL 4 complet SPIRI VA [facility] (St tiotropium A 2019 ed RESPIMAT 60 Ele hn's 0.0025 RESPIM 12:00: ACT Medical, MG/ACTUAT AT 60 00 AM PC) Metered ACT:15 EDT Dose 86070 Inhaler [Spiriva] SPIRIVA RESPIMAT 60 ACT:[id number] Levothyroxi LEVOTH 02/16/ TABLET 90 complet LEVO THYROXIN [facility] (St ne Sodium YROXIN 2019 ed E 's 0.025 MG E:9662 12:00: Medical , Oral Tablet 20 00 AM PC) LEVOTHYROXI EDT NE:732150 Levothyroxi LEVOTH 02/16/ TABLET 90 complet LEVO THYROXIN [facility] (St ne Sodium YROXIN 2019 ed E 's 0.025 MG E:9662 12:00: Medical , Oral Tablet 20 00 AM PC) LEVOTHYROXI EDT NE:109889 montelukast KEITH 02/07/ TABLET 90 complet RENETTA ELUKAST [facility] (St 10 MG Oral UKAST: 2019 ed 's Tablet [id number] 12:00: Medical, MONTELUKAST 00 AM PC) :[id number] EDT montelukast KEITH 02/07/ TABLET 90 complet RENETTA ELUKAST [facility] (St 10 MG Oral UKAST: 2019 ed 's Tablet [id number] 12:00: Medical, MONTELUKAST 00 AM PC) :[id number] EDT montelukast KEITH 02/07/ TABLET 90 complet RENETTA ELUKAST [facility] (St 10 MG Oral UKAST: 2019 ed 's Tablet [id number] 12:00: Medical, MONTELUKAST 00 AM PC) :[id number] EDT Warfarin WARFAR 02/02/ TABLET 90 complet WARFARI N [facility] (St Sodium 5 MG IN:855 2019 ed 's Oral Tablet 332 12:00: Medica l, WARFARIN:85 00 AM PC) 5332 EDT Warfarin WARFAR 02/02/ TABLET 90 complet WARFARI N [facility] (St Sodium 5 MG IN:855 2019 ed 's Oral Tablet 332 12:00: Medica l, WARFARIN:85 00 AM PC) 5332 EDT Warfarin WARFAR 02/02/ TABLET 90 complet WARFARI N [facility] (St Sodium 5 MG IN:855 2019 ed 's Oral Tablet 332 12:00: Medica l, WARFARIN:85 00 AM PC) 5332 EDT Simvastatin SIMVAS 12/12/ TABLET 90 complet SIMV ASTATIN [facility] (St 20 MG Oral TATIN: 2019 ed 's Tablet [id number] 12:00: Medical, SIMVASTATIN 00 AM PC) :[id number] EDT 200 ACTUAT PROAIR 11/24/ AEROSOL 8.5 complet PROA IR HFA [facility] (St Albuterol HFA:74 2019 ed 's 0.09 5752 12:00: Medical, MG/ACTUAT 00 AM PC) Metered EDT Dose Inhaler [ProAir] PROAIR HFA:[id number] 200 ACTUAT PROAIR 11/24/ AEROSOL 8.5 complet PROA IR HFA [facility] (St Albuterol HFA:74 2020 ed 's 0.09 5752 12:00: Medical, MG/ACTUAT 00 AM PC) Metered EDT Dose Inhaler [ProAir] PROAIR HFA:[id number] 200 ACTUAT PROAIR 11/24/ AEROSOL 8.5 complet PROA IR HFA [facility] (St Albuterol HFA:74 2020 ed 's 0.09 5752 12:00: Medical, MG/ACTUAT 00 AM PC) Metered EDT Dose Inhaler [ProAir] PROAIR HFA:[id number] Famotidine FAMOTI 25/ TABLET 180 complet FAMOT IDINE [facility] (St 20 MG Oral DINE:3 2019 ed 's Tablet 69350 12:00: Medical, FAMOTIDINE: 00 AM PC) [id number] EDT carvedilol CARVED /25/ TABLET 180 complet CARVE DILOL [facility] (St 12.5 MG ILOL:2 2020 ed 's Oral Tablet 37809 12:00: Medic al, CARVEDILOL: 00 AM PC) 606894 EDT Famotidine FAMOTI 25/ TABLET 180 complet FAMOT IDINE [facility] (St 20 MG Oral DINE:3 2019 ed 's Tablet 43762 12:00: Medical, FAMOTIDINE: 00 AM PC) [id number] EDT Famotidine FAMOTI 25/ TABLET 180 complet FAMOT IDINE [facility] (St 20 MG Oral DINE:3 2019 ed 's Tablet 08235 12:00: Medical, FAMOTIDINE: 00 AM PC) [id number] EDT Potassium POTASS 12/ CAPSULE, 36 complet POTA SSIUM [facility] (St Chloride 10 IUM 2020 EXTENDED ed CHLORIDE 's MEQ CHLORI 12:00: RELEASE Medical, Extended DE:312 00 AM PC) Release 504 EDT Oral Capsule POTASSIUM CHLORIDE:31 2504 Potassium POTASS 12/ CAPSULE, 36 complet POTA SSIUM [facility] (St Chloride 10 IUM 2020 EXTENDED ed CHLORIDE 's MEQ CHLORI 12:00: RELEASE Medical, Extended DE:312 00 AM PC) Release 504 EDT Oral Capsule POTASSIUM CHLORIDE:31 0174 Metolazone METOLA 10/15/ TABLET 30 complet METOL AZONE [facility] (St 2.5 MG Oral ZONE:1 2019 ed 's Tablet 29518 12:00: Medical, METOLAZONE: 00 AM PC) [id number] EST 60 ACTUAT SPIRIV 08/30/ AEROSOL 4 complet SPIRI VA [facility] (St tiotropium A 2018 ed RESPIMAT 60 Ele hn's 0.0025 RESPIM 12:00: ACT Medical, MG/ACTUAT AT 60 00 AM PC) Metered ACT:15 EST Dose 53984 Inhaler [Spiriva] SPIRIVA RESPIMAT 60 ACT:[id number] Levothyroxi LEVOTH 08/12/ TABLET 90 complet LEVO THYROXIN [facility] (St ne Sodium YROXIN 2019 ed E 's 0.025 MG E:9662 12:00: Medical , Oral Tablet 20 00 AM PC) LEVOTHYROXI EST NE:512408 Furosemide FUROSE 07/05/ TABLET 30 complet FUROS EMIDE [facility] (St 40 MG Oral MIDE:3 2018 ed 's Tablet 95763 12:00: Medical, FUROSEMIDE: 00 AM PC) 715763 EDT Furosemide FUROSE 07/05/ TABLET 30 complet FUROS EMIDE [facility] (St 40 MG Oral MIDE:3 2018 ed 's Tablet 68096 12:00: Medical, FUROSEMIDE: 00 AM PC) [id number] EDT Furosemide FUROSE 07/05/ TABLET 30 complet FUROS EMIDE [facility] (St 40 MG Oral MIDE:3 2018 ed 's Tablet 67590 12:00: Medical, FUROSEMIDE: 00 AM PC) 626717 EDT Aspirin 81 ASPIRI 09/24/ DELAYED 30 complet ASPI RIN [facility] (St MG Delayed N:3084 2018 RELEASE ed 's Release 16 12:00: TABLET Medical, Oral Tablet 00 AM PC) ASPIRIN:308 EST 416 Aspirin 81 ASPIRI 24/ DELAYED 30 complet ASPI RIN [facility] (St MG Delayed N:3084 2018 RELEASE ed 's Release 16 12:00: TABLET Medical, Oral Tablet 00 AM PC) ASPIRIN:308 EST 416 Aspirin 81 ASPIRI 24/ DELAYED 30 complet ASPI RIN [facility] (St MG Delayed N:3084 2018 RELEASE ed 's Release 16 12:00: TABLET Medical, Oral Tablet 00 AM PC) ASPIRIN:308 EST 416 Albuterol ALBUTE 03/05/ SOLUTION 180 complet ALBU TEROL [facility] (St 0.83 MG/ML ROL:63 2018 ed 's Inhalant 207 12:00: Medical, Solution 00 AM PC) ALBUTEROL:6 EDT 92910 Albuterol ALBUTE 03/05/ SOLUTION 180 complet ALBU TEROL [facility] (St 0.83 MG/ML ROL:63 2018 ed 's Inhalant 207 12:00: Medical, Solution 00 AM PC) ALBUTEROL:6 EDT 90754 Albuterol ALBUTE 03/05/ SOLUTION 180 complet ALBU TEROL [facility] (St 0.83 MG/ML ROL:63 2018 ed 's Inhalant 207 12:00: Medical, Solution 00 AM PC) ALBUTEROL:6 EDT 45207 Insurance Providers Payer name Policy type Policy ID Covered Covered alliance party's Policy P sarah / Coverage alliance party ID relationship to [place] [facility] ormation type kent [facility] [id number] SP [id number] CARE OPTIONS MEDICARE [id number] SP [id number] [facility]MERLY [facility] [id number] SP [id number] [place] [id number] PART B DOWNSTATE AARP MEDICARE [id number] [place] [id number] 1 [id number] PART B [place] MEDICARE [id number] SP [id number] MEDICARE [id number] SP [id number] [facility]MERLY [facility] [id number] SP [id number] CARE OPTIONS MEDICARE [id number] SP [id number] A FORMERLY [facility] [id number] SP [id number] CARE OPTIONS Problems, Conditions, and Diagnoses Code Display Name Description Problem Type Effective Data Sour ce(s) Dates L89.203 Pressure ulcer of PRESSURE ULCER OF Problem 05/04/2020 [facility] (St unspecified hip, UNSPECIFIED HIP, 12:00:00 AM Maida marino's stage 3 STAGE 3 EDT Medical, ) L89.003 Pressure ulcer of PRESSURE ULCER OF Problem 05/04/2020 [facility] (St unspecified elbow, UNSPECIFIED ELBOW, 12:00:00 AM 's stage 3 STAGE 3 EDT Medical, ) R13.10 Dysphagia, DYSPHAGIA, Problem 05/04/2020 [facility] (St unspecified UNSPECIFIED 12:00:00 AM [facility], ) R22.31 Localized swelling, LOCALIZED SWELLING, Problem 020 [facility] (St mass and lump, right MASS AND LUMP, 12:00:00 AM 's upper limb RIGHT UPPER LIMB T [facility], ) R22.31 Localized swelling, LOCALIZED SWELLING, Problem 020 [facility] (St mass and lump, right MASS AND LUMP, 12:00:00 AM 's upper limb RIGHT UPPER LIMB EDT [facility], ) I87.2 Venous insufficiency VENOUS Problem 05/07/2019 [facility] EN (St (chronic) INSUFFICIENCY 12:00:00 AM 's (peripheral) (CHRONIC) T [facility], ) (PERIPHERAL) I87.2 Venous insufficiency VENOUS Problem 05/07/2019 MED[facility] EN (St (chronic) INSUFFICIENCY 12:00:00 AM 's (peripheral) (CHRONIC) EDT [facility], ) (PERIPHERAL) I87.2 Venous insufficiency VENOUS Problem 05/07/2019 [facility] EN (St (chronic) INSUFFICIENCY 12:00:00 AM 's (peripheral) (CHRONIC) EDT [facility], ) (PERIPHERAL) I50.32 Chronic diastolic CHRONIC DIASTOLIC Problem 03/05/2019 [facility] (St (congestive) heart (CONGESTIVE) HEART 12:00:00 AM 's failure FAILURE T [facility], ) Z13.89 Encounter for ENCOUNTER FOR Problem 03/05/2019 [facility] ( St screening for other SCREENING FOR OTHER 12:00:0 0 AM 's disorder DISORDER T [facility], ) I50.32 Chronic diastolic CHRONIC DIASTOLIC Problem 03/05/2019 [facility] (St (congestive) heart (CONGESTIVE) HEART 12:00:00 AM 's failure FAILURE T [facility], ) Z13.89 Encounter for ENCOUNTER FOR Problem 03/05/2019 [facility] ( St screening for other SCREENING FOR OTHER 12:00:0 0 AM 's disorder DISORDER T [facility], ) I50.32 Chronic diastolic CHRONIC DIASTOLIC Problem 03/05/2019 [facility] (St (congestive) heart (CONGESTIVE) HEART 12:00:00 AM 's failure FAILURE T Medical, ) Z13.89 Encounter for ENCOUNTER FOR Problem 03/05/2019 [facility] ( St screening for other SCREENING FOR OTHER 12:00:0 0 AM 's disorder DISORDER EDT [facility], ) D50.9 Iron deficiency IRON DEFICIENCY Problem 09/24/2018 [facility] EN (St anemia, unspecified ANEMIA, UNSPECIFIED 12:00:0 0 AM [facility], ) D50.9 Iron deficiency IRON DEFICIENCY Problem 09/24/2018 MED[facility] EN (St anemia, unspecified ANEMIA, UNSPECIFIED 12:00:0 0 AM [facility], ) D50.9 Iron deficiency IRON DEFICIENCY Problem 09/24/2018 [facility] EN (St anemia, unspecified ANEMIA, UNSPECIFIED 12:00:0 0 AM [facility], ) J44.9 Chronic obstructive CHRONIC OBSTRUCTIVE Problem 018 [facility] (St pulmonary disease, PULMONARY DISEASE, 12:00:00 AM 's unspecified UNSPECIFIED EDT Medical, ) J00 Acute ACUTE Problem 06/23/2018 [facility] (St nasopharyngitis NASOPHARYNGITIS 12:00:00 AM Marcellus n's [common cold] [COMMON COLD] EDT Medical, ) J44.9 Chronic obstructive CHRONIC OBSTRUCTIVE Problem 018 [facility] (St pulmonary disease, PULMONARY DISEASE, 12:00:00 AM 's unspecified UNSPECIFIED EDT Medical, ) J00 Acute ACUTE Problem 06/23/2018 [facility] (St nasopharyngitis NASOPHARYNGITIS 12:00:00 AM Mar[facility]us n's [common cold] [COMMON COLD] EDT Medical, ) J44.9 Chronic obstructive CHRONIC OBSTRUCTIVE Problem 018 [facility] (St pulmonary disease, PULMONARY DISEASE, 12:00:00 AM 's unspecified UNSPECIFIED EDT Medical, ) J00 Acute ACUTE Problem 06/23/2018 [facility] (St nasopharyngitis NASOPHARYNGITIS 12:00:00 AM Marcellus n's [common cold] [COMMON COLD] EDT Medical, ) R06.00 Dyspnea, unspecified DYSPNEA, Problem 04/15/2018 MED[facility] EN (St UNSPECIFIED 12:00:00 AM 's T [facility], ) R06.00 Dyspnea, unspecified DYSPNEA, Problem 04/15/2018 MED[facility] EN (St UNSPECIFIED 12:00:00 AM [facility]) R06.00 Dyspnea, unspecified DYSPNEA, Problem 04/15/2018 MED[facility] EN (St UNSPECIFIED 12:00:00 AM [facility]) E78.5 Hyperlipidemia, HYPERLIPIDEMIA, Problem 01/28/2018 MED[facility] EN (St unspecified UNSPECIFIED 12:00:00 AM [facility]) I10 Essential (primary) ESSENTIAL (PRIMARY) Problem 018 MED[facility] (St hypertension HYPERTENSION 12:00:00 AM [facility]) E03.9 Hypothyroidism, HYPOTHYROIDISM, Problem 01/28/2018 MED[facility] EN (St unspecified UNSPECIFIED 12:00:00 AM [facility]) E78.5 Hyperlipidemia, HYPERLIPIDEMIA, Problem 01/28/2018 MED[facility] EN (St unspecified UNSPECIFIED 12:00:00 AM [facility]) I10 Essential (primary) ESSENTIAL (PRIMARY) Problem 018 [facility] (St hypertension HYPERTENSION 12:00:00 AM [facility]) E03.9 Hypothyroidism, HYPOTHYROIDISM, Problem 01/28/2018 MED[facility] EN (St unspecified UNSPECIFIED 12:00:00 AM [facility]) E78.5 Hyperlipidemia, HYPERLIPIDEMIA, Problem 01/28/2018 MED[facility] EN (St unspecified UNSPECIFIED 12:00:00 AM [facility]) I10 Essential (primary) ESSENTIAL (PRIMARY) Problem 018 [facility] (St hypertension HYPERTENSION 12:00:00 AM [facility]) E03.9 Hypothyroidism, HYPOTHYROIDISM, Problem 01/28/2018 MED[facility] EN (St unspecified UNSPECIFIED 12:00:00 AM [facility]) 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 11/27/2017 MED[facility] (St fibromatosis FIBROMATOSIS 12:00:00 AM 's [Dupuytren] [DUPUYTREN] [facility]) 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 11/27/2017 [facility] (St fibromatosis FIBROMATOSIS 12:00:00 AM 's [Dupuytren] [DUPUYTREN] T Medical, ) 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 11/27/2017 [facility] (St fibromatosis FIBROMATOSIS 12:00:00 AM 's [Dupuytren] [DUPUYTREN] EDT [facility], ) J06.9 Acute upper ACUTE UPPER Problem 10/08/2017 [facility] (St respiratory RESPIRATORY 12:00:00 AM 's infection, INFECTION, EST Medical, ) unspecified UNSPECIFIED J06.9 Acute upper ACUTE UPPER Problem 10/08/2017 [facility] (St respiratory RESPIRATORY 12:00:00 AM 's infection, INFECTION, EST Medical, ) unspecified UNSPECIFIED J06.9 Acute upper ACUTE UPPER Problem 10/08/2017 [facility] (St respiratory RESPIRATORY 12:00:00 AM 's infection, INFECTION, EST Medical, ) unspecified UNSPECIFIED I50.21 Acute systolic ACUTE SYSTOLIC Problem 06/06/2017 [facility] (St (congestive) heart (CONGESTIVE) HEART 12:00:00 AM 's failure FAILURE T [facility], ) I48.91 Unspecified atrial UNSPECIFIED ATRIAL Problem 7 [facility] (St fibrillation FIBRILLATION 12:00:00 AM 's [facility], ) I33.0 Acute and subacute ACUTE AND SUBACUTE Problem 7 [facility] (St infective INFECTIVE 12:00:00 AM 's endocarditis ENDOCARDITIS EDT Medical, P C) Z09 Encounter for ENCOUNTER FOR Problem 06/06/2017 [facility] ( St follow-up FOLLOW-UP 12:00:00 AM 's examination after EXAMINATION AFTER [facility], ) completed treatment COMPLETED TREATMENT for conditions other FOR CONDITIONS than malignant OTHER THAN neoplasm MALIGNANT NEOPLASM I50.21 Acute systolic ACUTE SYSTOLIC Problem 06/06/2017 [facility] (St (congestive) heart (CONGESTIVE) HEART 12:00:00 AM 's failure FAILURE T [facility], ) I48.91 Unspecified atrial UNSPECIFIED ATRIAL Problem 7 [facility] (St fibrillation FIBRILLATION 12:00:00 AM [facility], ) I33.0 Acute and subacute ACUTE AND SUBACUTE Problem 7 [facility] (St infective INFECTIVE 12:00:00 AM 's endocarditis ENDOCARDITIS EDT Medical, P C) Z09 Encounter for ENCOUNTER FOR Problem 06/06/2017 [facility] ( St follow-up FOLLOW-UP 12:00:00 AM 's examination after EXAMINATION AFTER EDT Medical, PC) completed treatment COMPLETED TREATMENT for conditions other FOR CONDITIONS than malignant OTHER THAN neoplasm MALIGNANT NEOPLASM I50.21 Acute systolic ACUTE SYSTOLIC Problem 06/06/2017 [facility] (St (congestive) heart (CONGESTIVE) HEART 12:00:00 AM 's failure FAILURE EDT Medical, PC) I48.91 Unspecified atrial UNSPECIFIED ATRIAL Problem 7 [facility] (St fibrillation FIBRILLATION 12:00:00 AM 's EDT Medical, PC) I33.0 Acute and subacute ACUTE AND SUBACUTE Problem 7 [facility] (St infective INFECTIVE 12:00:00 AM Ojhn's endocarditis ENDOCARDITIS EDT Medical, P C) Z09 Encounter for ENCOUNTER FOR Problem 06/06/2017 [facility] ( St follow-up FOLLOW-UP 12:00:00 AM 's examination after EXAMINATION AFTER EDT Medical, ) completed treatment COMPLETED TREATMENT for conditions other FOR CONDITIONS than malignant OTHER THAN neoplasm MALIGNANT NEOPLASM R06.02 Shortness of breath SHORTNESS OF BREATH Diagnosis [address] [place] [address] 06:00:00 AM [facility] 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 [employer] INTER[employer] valve VALVE EDT [facility] 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 VALVE 06:00:00 AM [facility] He alth disorders DISORDERS EDT [facility] I42.8 Other OTHER Diagnosis 01/27/2019 [place] cardiomyopathies CARDIOMYOPATHIES 06:00:00 AM [employer] I42.0 Dilated DILATED Diagnosis 01/19/2019 [place] cardiomyopathy CARDIOMYOPATHY 01:09:00 PM [facility] Surgeries/Procedures Procedure Description Date Indications Data Source(s) Documentation of current 05/04/2020 [facility] ([facility] medications (procedure) 12:00:00 AM EDT [facility]) Documentation of current 05/04/2020 [facility] ([facility] medications (procedure) 12:00:00 AM EDT [facility]) OFFICE OUTPATIENT VISIT 25 05/04/2020 Glenn SHIRLEY ([facility] MINUTES 12:00:00 AM EDT Medical, PC) Documentation of current 03/21/2020 [facility] ([facility] medications (procedure) 12:00:00 AM EDT quinical, PC) Documentation of current 03/21/2020 MED GEN ([facility] medications (procedure) 12:00:00 AM EDT quinical, PC) Documentation of current 03/21/2020 [facility] GEN ([facility] (procedure) 12:00:00 AM EDT quinical, PC) Documentation of current 03/21/2020 MED GEN ([facility] medications (procedure) 12:00:00 AM EDT quinical, PC) Documentation of current 03/21/2020 MED GEN ([facility] medications (procedure) 12:00:00 AM EDT edical, PC) Documentation of current 03/21/2020 MED GEN ([facility] medications (procedure) 12:00:00 AM EDT quinical, PC) Documentation of current 03/21/2020 MED GEN ([facility] medications (procedure) 12:00:00 AM EDT franco, PC) Documentation of current 03/21/2020 MED GEN ([facility] medications (procedure) 12:00:00 AM EDT quinical, PC) OFFICE OUTPATIENT VISIT 25 03/21/2020 Glenn SHIRLEY ([facility] MINUTES 12:00:00 AM EDT Medical, PC) Documentation of current 03/21/2020 MED GEN ([facility] medications (procedure) 12:00:00 AM EDT franco, PC) Documentation of current 03/21/2020 MED GEN ([facility] medications (procedure) 12:00:00 AM EDT franco, PC) Documentation of current 03/21/2020 MED GEN ([facility] medications (procedure) 12:00:00 AM EDT quinical, PC) Documentation of current 03/21/2020 MED GEN ([facility] medications (procedure) 12:00:00 AM EDT franco, PC) Documentation of current 03/21/2020 MED GEN ([facility] (procedure) 12:00:00 AM EDT edical, PC) Documentation of current 03/21/2020 MED GEN ([facility] medications (procedure) 12:00:00 AM EDT edical, PC) OFFICE OUTPATIENT VISIT 25 03/21/2020 Glenn [facility]GEN ([facility]ES 12:00:00 AM EDT Medical, PC) Documentation of current 02/16/2020 MED GEN ([facility] medications (procedure) 12:00:00 AM EDT edical, PC) Documentation of current 02/16/2020 MED GEN ([facility] medications (procedure) 12:00:00 AM EDT edical, PC) Documentation of current 02/16/2020 MED GEN ([facility] (procedure) 12:00:00 AM EDT edical, PC) Documentation of current 02/16/2020 MED GEN ([facility] (procedure) 12:00:00 AM EDT quinical, PC) Documentation of current 02/16/2020 MED GEN ([facility] medications (procedure) 12:00:00 AM EDT edical, PC) OFFICE OUTPATIENT VISIT 15 02/16/2020 Glenn SHIRLEY ([facility] 12:00:00 AM EDT Medical, PC) Documentation of current 02/16/2020 MED GEN ([facility] medications (procedure) 12:00:00 AM EDT quinical, PC) Documentation of current 02/16/2020 MED GEN ([facility] (procedure) 12:00:00 AM EDT quinical, PC) Documentation of current 02/16/2020 MED GEN ([facility] medications (procedure) 12:00:00 AM EDT quinical, PC) Documentation of current 02/16/2020 [facility] GEN ([facility] (procedure) 12:00:00 AM EDT franco, PC) Documentation of current 02/16/2020 MED GEN ([facility] (procedure) 12:00:00 AM EDT edical, PC) OFFICE OUTPATIENT VISIT 15 02/16/2020 Glenn SHIRLEY ([facility] 12:00:00 AM EDT Medical, PC) Documentation of current 02/16/2020 MED GEN ([facility] medications (procedure) 12:00:00 AM EDT edical, PC) OFFICE OUTPATIENT VISIT 15 02/16/2020 Glenn STILLN ([facility] 12:00:00 AM EDT Medical, PC) Documentation of current 11/11/2019 MED GEN ([facility] medications (procedure) 12:00:00 AM EDT franco, PC) Documentation of current 11/11/2019 [facility] GEN ([facility] (procedure) 12:00:00 AM EDT edical, PC) Documentation of current 11/11/2019 [facility] GEN ([facility] medications (procedure) 12:00:00 AM EDT quinical, PC) Documentation of current 11/11/2019 [facility] GEN ([facility] (procedure) 12:00:00 AM EDT franco, PC) Documentation of current 11/11/2019 [facility] GEN ([facility] (procedure) 12:00:00 AM EDT franco, PC) Documentation of current 11/11/2019 [facility] GEN ([facility] (procedure) 12:00:00 AM EDT franco, PC) Documentation of current 11/11/2019 MED GEN ([facility] (procedure) 12:00:00 AM EDT franco, PC) OFFICE OUTPATIENT VISIT 25 11/11/2019 Glenn STILLN ([facility] 12:00:00 AM EDT Reji, PC) Documentation of current 11/11/2019 MED GEN ([facility] medications (procedure) 12:00:00 AM EDT franco, PC) Documentation of current 11/11/2019 MED GEN ([facility] (procedure) 12:00:00 AM EDT franco, PC) Documentation of current 11/11/2019 [facility] GEN ([facility] (procedure) 12:00:00 AM EDT franco, PC) Documentation of current 11/11/2019 [facility] GEN ([facility] (procedure) 12:00:00 AM EDT franco, PC) Documentation of current 11/11/2019 [facility] GEN ([facility] (procedure) 12:00:00 AM EDT edical, PC) Documentation of current 11/11/2019 [facility] GEN ([facility] (procedure) 12:00:00 AM EDT edical, PC) Documentation of current 11/11/2019 [facility] GEN ([facility] (procedure) 12:00:00 AM EDT quinical, PC) OFFICE OUTPATIENT VISIT 25 11/11/2019 Glenn STILLN ([facility] 12:00:00 AM EDT Medical, PC) Documentation of current 11/11/2019 MED GEN ([facility] medications (procedure) 12:00:00 AM EDT franco, PC) Documentation of current 11/11/2019 MED GEN ([facility] (procedure) 12:00:00 AM EDT quinical, PC) Documentation of current 11/11/2019 [facility] GEN ([facility] (procedure) 12:00:00 AM EDT franco, PC) Documentation of current 11/11/2019 MED GEN ([facility] (procedure) 12:00:00 AM EDT quinical, PC) Documentation of current 11/11/2019 [facility] GEN ([facility] (procedure) 12:00:00 AM EDT quinical, PC) Documentation of current 11/11/2019 [facility] ([facility] (procedure) 12:00:00 AM EDT quinical, PC) Documentation of current 11/11/2019 [facility] ([facility] (procedure) 12:00:00 AM EDT franco, PC) OFFICE OUTPATIENT VISIT 25 11/11/2019 Glenn SHIRLEY ([facility] 12:00:00 AM EDT Medical, PC) Documentation of current 05/07/2019 MED GEN ([facility] medications (procedure) 12:00:00 AM EDT franco, PC) Documentation of current 05/07/2019 [facility] GEN ([facility] (procedure) 12:00:00 AM EDT franco, PC) Documentation of current 05/07/2019 [facility] GEN ([facility] (procedure) 12:00:00 AM EDT franco, PC) Documentation of current 05/07/2019 [facility] ([facility] (procedure) 12:00:00 AM EDT quinical, PC) OFFICE OUTPATIENT VISIT 15 05/07/2019 Glenn SHIRLEY ([facility] 12:00:00 AM EDT Medical, PC) Documentation of current 05/07/2019 MED GEN ([facility] (procedure) 12:00:00 AM EDT quinical, PC) Documentation of current 05/07/2019 [facility] GEN ([facility] (procedure) 12:00:00 AM EDT franco, PC) Documentation of current 05/07/2019 [facility] ([facility] (procedure) 12:00:00 AM EDT franco, PC) Documentation of current 05/07/2019 [facility] ([facility] (procedure) 12:00:00 AM EDT quinical, PC) OFFICE OUTPATIENT VISIT 15 05/07/2019 Glenn SHIRLEY ([facility] 12:00:00 AM EDT Medical, PC) Documentation of current 05/07/2019 MED GEN ([facility] medications (procedure) 12:00:00 AM EDT franco, PC) Documentation of current 05/07/2019 MED GEN ([facility] (procedure) 12:00:00 AM EDT franco, PC) Documentation of current 05/07/2019 [facility] ([facility] (procedure) 12:00:00 AM EDT franco, PC) Documentation of current 05/07/2019 [facility] ([facility] (procedure) 12:00:00 AM EDT franco, PC) OFFICE OUTPATIENT VISIT 15 05/07/2019 Glenn SHIRLEY ([facility] 12:00:00 AM EDT Medical, PC) Documentation of current 03/05/2019 [facility] ([facility] medications (procedure) 12:00:00 AM EDT franco, PC) Documentation of current 03/05/2019 [facility] ([facility] (procedure) 12:00:00 AM EDT franco, PC) Documentation of current 03/05/2019 [facility] ([facility] (procedure) 12:00:00 AM EDT franco, PC) Documentation of current 03/05/2019 [facility] ([facility] (procedure) 12:00:00 AM EDT franco, PC) OFFICE OUTPATIENT VISIT 25 03/05/2019 Glenn SHIRLEY ([facility] 12:00:00 AM EDT Medical, PC) Documentation of current 03/05/2019 [facility] ([facility] (procedure) 12:00:00 AM EDT quinical, PC) Documentation of current 03/05/2019 [facility] ([facility] (procedure) 12:00:00 AM EDT quinical, PC) Documentation of current 03/05/2019 [facility] ([facility] (procedure) 12:00:00 AM EDT edical, ) Documentation of current 03/05/2019 [facility] ([facility] (procedure) 12:00:00 AM EDT edical, PC) OFFICE OUTPATIENT VISIT 25 03/05/2019 Glenn CASPER ([facility] 12:00:00 AM EDT Medical, ) Documentation of current 03/05/2019 MED GEN ([facility] medications (procedure) 12:00:00 AM EDT edical, PC) Documentation of current 03/05/2019 [facility] GEN ([facility] (procedure) 12:00:00 AM EDT edical, PC) Documentation of current 03/05/2019 [facility] GEN ([facility] (procedure) 12:00:00 AM EDT edical, PC) Documentation of current 03/05/2019 [facility] ([facility] (procedure) 12:00:00 AM EDT edical, PC) OFFICE OUTPATIENT VISIT 25 03/05/2019 Glenn SHIRLEY ([facility] 12:00:00 AM EDT Medical, ) Documentation of current 01/18/2019 [facility] GEN ([facility] medications (procedure) 12:00:00 AM EDT edical, PC) Documentation of current 01/18/2019 [facility] ([facility] (procedure) 12:00:00 AM EDT edical, PC) OFFICE OUTPATIENT VISIT 15 01/18/2019 Glenn SHIRLEY ([facility] 12:00:00 AM EDT Medical, PC) Documentation of current 01/18/2019 MED GEN ([facility] medications (procedure) 12:00:00 AM EDT edical, PC) Documentation of current 01/18/2019 [facility] GEN ([facility] medications (procedure) 12:00:00 AM EDT edical, PC) OFFICE OUTPATIENT VISIT 15 01/18/2019 Glenn SHIRLEY ([facility] 12:00:00 AM EDT Medical, PC) Documentation of current 01/18/2019 [facility] GEN ([facility] medications (procedure) 12:00:00 AM EDT edical, PC) Documentation of current 01/18/2019 [facility] ([facility] (procedure) 12:00:00 AM EDT M edical, PC) OFFICE OUTPATIENT VISIT 15 01/18/2019 Glenn SHIRLEY ([facility] 12:00:00 AM EDT Medical, PC) Documentation of current 09/24/2018 [facility] ([facility] medications (procedure) 12:00:00 AM EST Glenn tsaiical, PC) Documentation of current 09/24/2018 [facility] GEN ([facility] medications (procedure) 12:00:00 AM EST Glenn edical, PC) OFFICE OUTPATIENT VISIT 15 09/24/2018 Glenn SHIRLEY ([facility] 12:00:00 AM EST Medical, PC) Documentation of current 09/24/2018 [facility] ([facility] medications (procedure) 12:00:00 AM EST Glenn tsaiical, PC) Documentation of current 09/24/2018 [facility] ([facility] medications (procedure) 12:00:00 AM EST Glenn edical, PC) OFFICE OUTPATIENT VISIT 15 09/24/2018 Glenn SHIRLEY ([facility] 12:00:00 AM EST Medical, PC) Documentation of current 09/24/2018 [facility] ([facility] (procedure) 12:00:00 AM EST Glenn edical, PC) Documentation of current 09/24/2018 [facility] ([facility] medications (procedure) 12:00:00 AM EST Glenn edical, PC) OFFICE OUTPATIENT VISIT 15 09/24/2018 Glenn SHIRLEY ([facility] 12:00:00 AM EST Medical, PC) OFFICE OUTPATIENT VISIT 15 08/06/2018 Glenn SHIRLEY ([facility] 12:00:00 AM EST Medical, PC) OFFICE OUTPATIENT VISIT 15 08/06/2018 Glenn SHIRLEY ([facility] 12:00:00 AM EST Medical, PC) OFFICE OUTPATIENT VISIT 15 08/06/2018 Glenn SHIRLEY ([facility] 12:00:00 AM EST Medical, PC) Documentation of current 07/01/2018 [facility] GEN ([facility] medications (procedure) 12:00:00 AM EDT Glenn gamez, PC) Documentation of current 07/01/2018 [facility] GEN ([facility] medications (procedure) 12:00:00 AM EDT Glenn tsaiical, PC) Documentation of current 07/01/2018 [facility] ([facility] medications (procedure) 12:00:00 AM EDT Glenn tsaiical, PC) Documentation of current 07/01/2018 [facility] ([facility] (procedure) 12:00:00 AM EDT edical, PC) Documentation of current 07/01/2018 [facility] GEN ([facility] (procedure) 12:00:00 AM EDT edical, PC) Documentation of current 07/01/2018 [facility] GEN ([facility] (procedure) 12:00:00 AM EDT edical, PC) Documentation of current 07/01/2018 [facility] GEN ([facility] (procedure) 12:00:00 AM EDT edical, PC) OFFICE OUTPATIENT VISIT 15 07/01/2018 M [facility]GEN ([facility] 12:00:00 AM EDT Medical, PC) Documentation of current 07/01/2018 MED GEN ([facility] medications (procedure) 12:00:00 AM EDT edical, PC) Documentation of current 07/01/2018 MED GEN ([facility] (procedure) 12:00:00 AM EDT edical, PC) Documentation of current 07/01/2018 [facility] GEN ([facility] (procedure) 12:00:00 AM EDT edical, PC) Documentation of current 07/01/2018 [facility] ([facility] (procedure) 12:00:00 AM EDT edical, PC) Documentation of current 07/01/2018 [facility] GEN ([facility] (procedure) 12:00:00 AM EDT edical, PC) Documentation of current 07/01/2018 [facility] ([facility] medications (procedure) 12:00:00 AM EDT edical, PC) Documentation of current 07/01/2018 [facility] GEN ([facility] medications (procedure) 12:00:00 AM EDT edical, PC) OFFICE OUTPATIENT VISIT 15 07/01/2018 M [facility] ([facility] 12:00:00 AM EDT Medical, PC) Documentation of current 07/01/2018 [facility] ([facility] (procedure) 12:00:00 AM EDT edical, PC) Documentation of current 07/01/2018 [facility] GEN ([facility] (procedure) 12:00:00 AM EDT edical, PC) Documentation of current 07/01/2018 [facility] ([facility] (procedure) 12:00:00 AM EDT edical, PC) Documentation of current 07/01/2018 [facility] GEN ([facility] (procedure) 12:00:00 AM EDT edical, PC) Documentation of current 07/01/2018 MED GEN ([facility] (procedure) 12:00:00 AM EDT edical, PC) Documentation of current 07/01/2018 MED GEN ([facility] (procedure) 12:00:00 AM EDT edical, PC) Documentation of current 07/01/2018 [facility] GEN ([facility] (procedure) 12:00:00 AM EDT edical, PC) OFFICE OUTPATIENT VISIT 15 07/01/2018 Glenn STILLN ([facility] 12:00:00 AM EDT Medical, PC) OFFICE OUTPATIENT VISIT 15 06/23/2018 Glenn STILLN ([facility] 12:00:00 AM EDT Medical, PC) OFFICE OUTPATIENT VISIT 15 06/23/2018 Glenn SHIRLEY ([facility] 12:00:00 AM EDT Medical, PC) OFFICE OUTPATIENT VISIT 15 06/23/2018 Glenn SHIRLEY ([facility] 12:00:00 AM EDT Medical, PC) Documentation of current 05/13/2018 [facility] ([facility] (procedure) 12:00:00 AM EDT edical, PC) Documentation of current 05/13/2018 [facility] ([facility] (procedure) 12:00:00 AM EDT edical, PC) OFFICE OUTPATIENT VISIT 15 05/13/2018 Glenn SHIRLEY ([facility] 12:00:00 AM EDT Medical, PC) Documentation of current 05/13/2018 [facility] GEN ([facility] medications (procedure) 12:00:00 AM EDT edical, PC) Documentation of current 05/13/2018 [facility] GEN ([facility] medications (procedure) 12:00:00 AM EDT edical, PC) OFFICE OUTPATIENT VISIT 15 05/13/2018 Glenn STILLN ([facility] 12:00:00 AM EDT Medical, PC) Documentation of current 05/13/2018 [facility] ([facility] medications (procedure) 12:00:00 AM EDT edical, PC) Documentation of current 05/13/2018 [facility] ([facility] medications (procedure) 12:00:00 AM EDT edical, ) OFFICE OUTPATIENT VISIT 15 05/13/2018 Glenn SHIRLEY ([facility] 12:00:00 AM EDT Medical, ) Documentation of current 04/15/2018 [facility] ([facility] medications (procedure) 12:00:00 AM EDT edical, ) Documentation of current 04/15/2018 [facility] ([facility] medications (procedure) 12:00:00 AM EDT edical, ) Documentation of current 04/15/2018 [facility] ([facility] medications (procedure) 12:00:00 AM EDT edical, ) Documentation of current 04/15/2018 [facility] ([facility] medications (procedure) 12:00:00 AM EDT edical, ) Documentation of current 04/15/2018 [facility] ([facility] medications (procedure) 12:00:00 AM EDT edical, ) OFFICE OUTPATIENT VISIT 15 04/15/2018 Glenn SHIRLEY ([facility] 12:00:00 AM EDT Medical, ) NONINVASIVE EAR/PULSE 04/15/2018 [facility] ([facility] OXIMETRY OVERNIGHT MONITOR 12:00:00 AM EDT Medical, ) Documentation of current 04/15/2018 [facility] ([facility] medications (procedure) 12:00:00 AM EDT edical, PC) Documentation of current 04/15/2018 [facility] ([facility] medications (procedure) 12:00:00 AM EDT edical, ) Documentation of current 04/15/2018 [facility] ([facility] medications (procedure) 12:00:00 AM EDT edical, PC) Documentation of current 04/15/2018 [facility] GEN ([facility] medications (procedure) 12:00:00 AM EDT edical, PC) Documentation of current 04/15/2018 [facility] ([facility] medications (procedure) 12:00:00 AM EDT edical, PC) OFFICE OUTPATIENT VISIT 15 04/15/2018 Glenn STILLN ([facility]ES 12:00:00 AM EDT Medical, ) NONINVASIVE EAR/PULSE 04/15/2018 [facility] ([facility] OXIMETRY OVERNIGHT MONITOR 12:00:00 AM EDT Medical, ) Documentation of current 04/15/2018 [facility] ([facility] medications (procedure) 12:00:00 AM EDT quinical, PC) Documentation of current 04/15/2018 [facility] ([facility] medications (procedure) 12:00:00 AM EDT edical, PC) Documentation of current 04/15/2018 [facility] ([facility] medications (procedure) 12:00:00 AM EDT quinical, PC) Documentation of current 04/15/2018 [facility] GEN ([facility] medications (procedure) 12:00:00 AM EDT edical, PC) Documentation of current 04/15/2018 [facility] ([facility] medications (procedure) 12:00:00 AM EDT edical, PC) OFFICE OUTPATIENT VISIT 15 04/15/2018 Glenn SHIRLEY ([facility]ES 12:00:00 AM EDT Medical, PC) NONINVASIVE EAR/PULSE 04/15/2018 [facility] ([facility] OXIMETRY OVERNIGHT MONITOR 12:00:00 AM ED Medical, ) Documentation of current 01/28/2018 [facility] GEN ([facility] medications (procedure) 12:00:00 AM EDT quinical, PC) Documentation of current 01/28/2018 [facility] GEN ([facility] medications (procedure) 12:00:00 AM EDT quinical, PC) Documentation of current 01/28/2018 [facility] ([facility] medications (procedure) 12:00:00 AM EDT quinical, PC) Documentation of current 01/28/2018 [facility] GEN ([facility] medications (procedure) 12:00:00 AM EDT quinical, PC) Documentation of current 01/28/2018 [facility] GEN ([facility] medications (procedure) 12:00:00 AM EDT edical, PC) Documentation of current 01/28/2018 [facility] ([facility] medications (procedure) 12:00:00 AM EDT edical, PC) Documentation of current 01/28/2018 [facility] ([facility] medications (procedure) 12:00:00 AM EDT edical, PC) OFFICE OUTPATIENT VISIT 15 01/28/2018 Glenn STILLN ([facility] 12:00:00 AM EDT Medical, PC) Documentation of current 01/28/2018 MED GEN ([facility] medications (procedure) 12:00:00 AM EDT edical, PC) Documentation of current 01/28/2018 [facility] ([facility] medications (procedure) 12:00:00 AM EDT edical, PC) Documentation of current 01/28/2018 [facility] GEN ([facility] medications (procedure) 12:00:00 AM EDT edical, PC) Documentation of current 01/28/2018 [facility] ([facility] medications (procedure) 12:00:00 AM EDT edical, PC) Documentation of current 01/28/2018 [facility] ([facility] medications (procedure) 12:00:00 AM EDT edical, PC) Documentation of current 01/28/2018 [facility] ([facility] medications (procedure) 12:00:00 AM EDT edical, PC) Documentation of current 01/28/2018 [facility] ([facility] medications (procedure) 12:00:00 AM EDT edical, PC) OFFICE OUTPATIENT VISIT 15 01/28/2018 Glenn SHIRLEY ([facility] 12:00:00 AM ED Medical, PC) Documentation of current 01/28/2018 [facility] ([facility] medications (procedure) 12:00:00 AM EDT edical, PC) Documentation of current 01/28/2018 [facility] ([facility] medications (procedure) 12:00:00 AM EDT quinical, PC) Documentation of current 01/28/2018 [facility] ([facility] medications (procedure) 12:00:00 AM EDT quinical, PC) Documentation of current 01/28/2018 [facility] GEN ([facility] medications (procedure) 12:00:00 AM EDT edical, PC) Documentation of current 01/28/2018 [facility] ([facility] medications (procedure) 12:00:00 AM EDT edical, PC) Documentation of current 01/28/2018 [facility] ([facility] medications (procedure) 12:00:00 AM EDT edical, PC) Documentation of current 01/28/2018 [facility] ([facility] medications (procedure) 12:00:00 AM EDT edical, PC) OFFICE OUTPATIENT VISIT 15 01/28/2018 Glenn SHIRLEY ([facility] 12:00:00 AM EDT Medical, PC) OFFICE OUTPATIENT VISIT 15 11/27/2017 Glenn CASPER ([facility]ES 12:00:00 AM EDT Medical, PC) OFFICE OUTPATIENT VISIT 15 11/27/2017 Glenn CASPER ([facility] 12:00:00 AM EDT Medical, PC) OFFICE OUTPATIENT VISIT 15 11/27/2017 Glenn CASPER ([facility] 12:00:00 AM EDT Medical, PC) Documentation of current 10/08/2017 [facility] ([facility] medications (procedure) 12:00:00 AM EST M edical, PC) OFFICE OUTPATIENT VISIT 15 10/08/2017 Glenn CASPER ([facility] 12:00:00 AM EST Medical, PC) Documentation of current 10/08/2017 [facility] ([facility] medications (procedure) 12:00:00 AM EST M edical, PC) OFFICE OUTPATIENT VISIT 15 10/08/2017 Glenn CASPER ([facility] 12:00:00 AM EST Medical, PC) Documentation of current 10/08/2017 [facility] ([facility] medications (procedure) 12:00:00 AM EST M edical, PC) OFFICE OUTPATIENT VISIT 15 10/08/2017 Glenn CASPER ([facility]ES 12:00:00 AM EST Medical, PC) HOSPITAL DISCHARGE DAY 06/06/2017 MEDGE N ([facility] MANAGEMENT > 30 MIN 12:00:00 AM EDT Medic al, PC) HOSPITAL DISCHARGE DAY 06/06/2017 MEDGE N ([facility]NAGEMENT > 30 MIN 12:00:00 AM EDT Medic al, PC) HOSPITAL DISCHARGE DAY 06/06/2017 MEDGE N ([facility] MANAGEMENT > 30 MIN 12:00:00 AM EDT Medic al, PC) Documentation of current 05/22/2017 [facility] ([facility] medications (procedure) 12:00:00 AM EDT M edical, PC) Documentation of current 05/22/2017 [facility] ([facility] medications (procedure) 12:00:00 AM EDT M edical, PC) Documentation of current 05/22/2017 [facility] ([facility] medications (procedure) 12:00:00 AM EDT M quinical, PC) Documentation of current 05/22/2017 [facility] ([facility] medications (procedure) 12:00:00 AM EDT edical, ) Documentation of current 05/22/2017 [facility] ([facility] medications (procedure) 12:00:00 AM EDT edical, ) Electrocardiogram, routine 05/22/2017 [facility] ([facility] ecg with 12 leads; 12:00:00 AM EDT Medica l, ) interpretation and report only, performed as a screening for the initial preventive physical examination PEAK FLOW METER ASSESSMENT 05/22/2017 [facility] ([facility] 12:00:00 AM EDT Medical, ) Documentation of current 05/22/2017 [facility] ([facility] medications (procedure) 12:00:00 AM EDT edical, PC) Documentation of current 05/22/2017 MED [facility] ([facility] medications (procedure) 12:00:00 AM EDT edical, PC) Documentation of current 05/22/2017 [facility] ([facility] medications (procedure) 12:00:00 AM EDT edical, PC) Documentation of current 05/22/2017 [facility] ([facility] medications (procedure) 12:00:00 AM EDT edical, PC) Documentation of current 05/22/2017 MED [facility] ([facility] medications (procedure) 12:00:00 AM EDT edical, PC) Electrocardiogram, routine 05/22/2017 [facility] ([facility] ecg with 12 leads; 12:00:00 AM EDT Medica l, ) interpretation and report only, performed as a screening for the initial preventive physical examination PEAK FLOW METER ASSESSMENT 05/22/2017 [facility] ([facility] 12:00:00 AM EDT Medical, PC) Documentation of current 05/22/2017 MED [facility] ([facility] medications (procedure) 12:00:00 AM EDT edical, PC) Documentation of current 05/22/2017 MED [facility] ([facility] medications (procedure) 12:00:00 AM EDT edical, PC) Documentation of current 05/22/2017 MED [facility] ([facility] medications (procedure) 12:00:00 AM EDT edical, PC) Documentation of current 05/22/2017 [facility] ([facility] medications (procedure) 12:00:00 AM EDT [facility], ) Documentation of current 05/22/2017 MED GEN ([facility] medications (procedure) 12:00:00 AM EDT [facility], ) Electrocardiogram, routine 05/22/2017 Glenn CASPER [facility] 12 [facility] interpretation and report only, performed as a screening for the initial preventive physical examination PEAK FLOW METER ASSESSMENT 05/22/2017 Glenn SHIRLEY ([facility] 12:00:00 AM ED Medical, ) Social History Code Duration Value Status Description Data Source(s ) Smoking 05/04/2020 Has a rare completed Has a rare social [facility] ([facility] 12:00:00 AM EDT social drink drink Tobacco [facility], ) Tobacco Status: Status: Never Never smoker/rare smoker/rare Smoking 05/04/2020 Former smoker completed Former smoker [facility] ( [facility] 12:00:00 AM ED Medical, ) Smoking 03/26/2020 Has a rare completed Has a rare social [facility] ([facility] 12:00:00 AM EDT social drink drink Tobacco [facility], ) Tobacco Status: Status: Never Never smoker/rare smoker/rare Smoking 03/26/2020 Former smoker completed [facility]/16/2020 Has a rare completed Has a rare social [facility] ([facility] 12:00:00 AM EDT social drink drink Tobacco [facility], ) Tobacco Status: Status: Never Never smoker/rare smoker/rare Smoking 02/16/2020 Former smoker completed Former smoker [facility] ( [facility] Vital Signs ID Date Data Source UNK Name Value Range Interpretation Code Description Data Source(s) Heart rate 94 /min 94 /min MEDGEN ([facility] , ) Respiratory rate 12 /min 12 /min MEDGEN ( [facility] , ) Body temperature 98.1 F 98.1 F MEDGEN ( [facility] , ) Inhaled oxygen 94 % 94 % MEDGEN ([facility], ) Body mass index 24.9 kg/m2 24.9 kg/m2 MEDGEN (S t (BMI) [Ratio] [facility], ) Diastolic blood 70 mm[Hg] 70 mm[Hg] MEDGEN (S t pressure [facility]) Systolic blood 110 mm[Hg] 110 mm[Hg] MEDGEN ([facility]) Body weight 136 lb 136 lb MEDGEN ([facility]) Body height 62 in 62 in MEDGEN ([facility]) Heart rate 96 /min 96 /min MEDGEN ([facility]) Respiratory rate 17 /min 17 /min MEDGEN ( [facility]) Body temperature 98 F 98 F MEDGEN ( [facility]) Inhaled oxygen 90 % 90 % MEDGEN ([facility]) Body mass index 24.2 kg/m2 24.2 kg/m2 MEDGEN (S t (BMI) [Ratio] [facility], ) Diastolic blood 62 mm[Hg] 62 mm[Hg] MEDGEN (S t [facility]) Heart rate 96 /min 96 /min MEDGEN ([facility]) Respiratory rate 17 /min 17 /min MEDGEN ( [facility]) Body temperature 98 F 98 F MEDGEN ( [facility]) Inhaled oxygen 90 % 90 % MEDGEN ([facility], ) Body mass index 24.2 kg/m2 24.2 kg/m2 MEDGEN (S t (BMI) [Ratio] [facility], ) Diastolic blood 62 mm[Hg] 62 mm[Hg] MEDGEN (S t pressure [facility]) Systolic blood 110 mm[Hg] 110 mm[Hg] MEDGEN ([facility]) Body weight 130 lb 130 lb MEDGEN ([facility]) Body height 61.5 in 61.5 in MEDGEN ([facility]) Systolic blood 110 mm[Hg] 110 mm[Hg] MEDGEN ([facility]) Body weight 130 lb 130 lb MEDGEN ([facility]) Body height 61.5 in 61.5 in MEDGEN ([facility]) Heart rate 77 /min 77 /min MEDGEN ([facility]) Respiratory rate 17 /min 17 /min MEDGEN ( [facility]) Body temperature 97.7 F 97.7 F MEDGEN ( [facility]) Inhaled oxygen 95 % 95 % MEDGEN ([facility]) Body mass index 23.4 kg/m2 23.4 kg/m2 MEDGEN (S t (BMI) [Ratio] [facility], ) Diastolic blood 55 mm[Hg] 55 mm[Hg] MEDGEN (S t pressure [facility]) Systolic blood 110 mm[Hg] 110 mm[Hg] MEDGEN ([facility]) Body weight 126 lb 126 lb MEDGEN ([facility]) Body height 61.5 in 61.5 in MEDGEN ([facility]) Heart rate 77 /min 77 /min MEDGEN ([facility]) Respiratory rate 17 /min 17 /min MEDGEN ( [facility]) Body temperature 97.7 F 97.7 F MEDGEN ( [facility]) Inhaled oxygen 95 % 95 % MEDGEN ([facility]) Body mass index 23.4 kg/m2 23.4 kg/m2 MEDGEN (S t (BMI) [Ratio] [facility], ) Diastolic blood 55 mm[Hg] 55 mm[Hg] MEDGEN (S t pressure [facility]) Systolic blood 110 mm[Hg] 110 mm[Hg] MEDGEN ([facility]) Body weight 126 lb 126 lb MEDGEN ([facility]) Body height 61.5 in 61.5 in MEDGEN ([facility]) Heart rate 77 /min 77 /min MEDGEN ([facility]) Respiratory rate 17 /min 17 /min MEDGEN ( [facility]) Body temperature 97.7 F 97.7 F MEDGEN ( [facility]) Inhaled oxygen 95 % 95 % MEDGEN ([facility]) Body mass index 23.4 kg/m2 23.4 kg/m2 MEDGEN ([facility] t [facility]) [facility] Diastolic blood 55 mm[Hg] 55 mm[Hg] MEDGEN (S t [facility]) Systolic blood 110 mm[Hg] 110 mm[Hg] MEDGEN ([facility]) Body weight 126 lb 126 lb MEDGEN ([facility]) Body height 61.5 in 61.5 in MEDGEN ([facility]) Heart rate 87 /min 87 /min MEDGEN ([facility]) Respiratory rate 19 /min 19 /min MEDGEN ( [facility]) Body temperature 97.5 F 97.5 F MEDGEN ( [facility]) Inhaled oxygen 97 % 97 % MEDGEN ([facility]) Body mass index 25.1 kg/m2 25.1 kg/m2 MEDGEN (S t (BMI) [Ratio] [facility]) Diastolic blood 60 mm[Hg] 60 mm[Hg] MEDGEN (S t [facility]) Systolic blood 104 mm[Hg] 104 mm[Hg] MEDGEN ([facility]) Body weight 135 lb 135 lb MEDGEN ([facility]) Body height 61.5 in 61.5 in MEDGEN ([facility]) Heart rate 87 /min 87 /min MEDGEN ([facility]) Respiratory rate 19 /min 19 /min MEDGEN ( [facility]) Body temperature 97.5 F 97.5 F MEDGEN ( [facility]) Inhaled oxygen 97 % 97 % MEDGEN ([facility]) Body mass index 25.1 kg/m2 25.1 kg/m2 MEDGEN (S t (BMI) [Ratio] [facility]) Diastolic blood 60 mm[Hg] 60 mm[Hg] MEDGEN (S t [facility]) Systolic blood 104 mm[Hg] 104 mm[Hg] MEDGEN ([facility]) Body weight 135 lb 135 lb MEDGEN ([facility]) Body height 61.5 in 61.5 in MEDGEN ([facility]) Heart rate 87 /min 87 /min MEDGEN ([facility]) Respiratory rate 19 /min 19 /min MEDGEN ( [facility]) Body temperature 97.5 F 97.5 F MEDGEN ( [facility]) Inhaled oxygen 97 % 97 % MEDGEN ([facility]) Body mass index 25.1 kg/m2 25.1 kg/m2 MEDGEN (S t (BMI) [Ratio] [facility]) Diastolic blood 60 mm[Hg] 60 mm[Hg] MEDGEN (S t pressure [facility]) Systolic blood 104 mm[Hg] 104 mm[Hg] MEDGEN ([facility]) Body weight 135 lb 135 lb MEDGEN ([facility]) Body height 61.5 in 61.5 in MEDGEN ([facility]) Heart rate 76 /min 76 /min MEDGEN ([facility]) Respiratory rate 17 /min 17 /min MEDGEN ( [facility]) Body temperature 98.1 F 98.1 F MEDGEN ( [facility]) Inhaled oxygen 89 % 89 % MEDGEN ([facility]) Body mass index 26.4 kg/m2 26.4 kg/m2 MEDGEN (S t (BMI) [Ratio] [facility]) Diastolic blood 60 mm[Hg] 60 mm[Hg] MEDGEN (S [facility]) Systolic blood 124 mm[Hg] 124 mm[Hg] MEDGEN ([facility]) Body weight 142 lb 142 lb MEDGEN ([facility]) Body height 61.5 in 61.5 in MEDGEN ([facility]) Heart rate 76 /min 76 /min MEDGEN ([facility]) Respiratory rate 17 /min 17 /min MEDGEN ( [facility]) Body temperature 98.1 F 98.1 F MEDGEN ( [facility]) Inhaled oxygen 89 % 89 % MEDGEN ([facility]) Body mass index 26.4 kg/m2 26.4 kg/m2 MEDGEN (S t (BMI) [Ratio] [facility]) Diastolic blood 60 mm[Hg] 60 mm[Hg] MEDGEN (S t pressure [facility]) Systolic blood 124 mm[Hg] 124 mm[Hg] MEDGEN ([facility]) Body weight 142 lb 142 lb MEDGEN ([facility]) Body height 61.5 in 61.5 in MEDGEN ([facility]) Heart rate 76 /min 76 /min MEDGEN ([facility]) Respiratory rate 17 /min 17 /min MEDGEN ( [facility]) Body temperature 98.1 F 98.1 F MEDGEN ( [facility]) Inhaled oxygen 89 % 89 % MEDGEN ([facility]) Body mass index 26.4 kg/m2 26.4 kg/m2 MEDGEN (S t (BMI) [Ratio] [facility]) Diastolic blood 60 mm[Hg] 60 mm[Hg] MEDGEN (S t [facility]) Systolic blood 124 mm[Hg] 124 mm[Hg] MEDGEN ([facility]) Body weight 142 lb 142 lb MEDGEN ([facility]) Body height 61.5 in 61.5 in MEDGEN ([facility]) Heart rate 86 /min 86 /min MEDGEN ([facility]) Respiratory rate 17 /min 17 /min MEDGEN ( [facility]) Body temperature 97.4 F 97.4 F MEDGEN ( [facility]) Inhaled oxygen 97 % 97 % MEDGEN ([facility]) Body mass index 25.6 kg/m2 25.6 kg/m2 MEDGEN (S t (BMI) [Ratio] [facility]) Diastolic blood 57 mm[Hg] 57 mm[Hg] MEDGEN (S t pressure [facility]) Systolic blood 106 mm[Hg] 106 mm[Hg] MEDGEN ([facility]) Body weight 138 lb 138 lb MEDGEN ([facility]) Body height 61.5 in 61.5 in MEDGEN ([facility]) Heart rate 86 /min 86 /min MEDGEN ([facility]) Respiratory rate 17 /min 17 /min MEDGEN ( [facility]) Body temperature 97.4 F 97.4 F MEDGEN ( [facility]) Inhaled oxygen 97 % 97 % MEDGEN ([facility]) Body mass index 25.6 kg/m2 25.6 kg/m2 MEDGEN (S t (BMI) [Ratio] [facility], ) Diastolic blood 57 mm[Hg] 57 mm[Hg] MEDGEN (S t pressure [facility]) Systolic blood 106 mm[Hg] 106 mm[Hg] MEDGEN ([facility]) Body weight 138 lb 138 lb MEDGEN ([facility]) Body height 61.5 in 61.5 in MEDGEN ([facility]) Heart rate 86 /min 86 /min MEDGEN ([facility]) Respiratory rate 17 /min 17 /min MEDGEN ( [facility]) Body temperature 97.4 F 97.4 F MEDGEN ( [facility]) Inhaled oxygen 97 % 97 % MEDGEN ([facility], ) Body mass index 25.6 kg/m2 25.6 kg/m2 MEDGEN (S t (BMI) [Ratio] [facility], ) Diastolic blood 57 mm[Hg] 57 mm[Hg] MEDGEN (S t pressure [facility]) Systolic blood 106 mm[Hg] 106 mm[Hg] MEDGEN ([facility]) Body weight 138 lb 138 lb MEDGEN ([facility]) Body height 61.5 in 61.5 in MEDGEN ([facility]) Diastolic blood 57 mm[Hg] 57 mm[Hg] MEDGEN (S t pressure [facility]) Systolic blood 78 mm[Hg] 78 mm[Hg] MEDGEN ([facility]) Diastolic blood 57 mm[Hg] 57 mm[Hg] MEDGEN (S t pressure [facility]) Systolic blood 78 mm[Hg] 78 mm[Hg] MEDGEN ([facility]) Diastolic blood 57 mm[Hg] 57 mm[Hg] MEDGEN (S t pressure [facility]) Systolic blood 78 mm[Hg] 78 mm[Hg] MEDGEN ([facility] ) Heart rate 88 /min 88 /min MEDGEN ([facility] , ) Respiratory rate 16 /min 16 /min MEDGEN ( [facility] , ) Body temperature 97.6 F 97.6 F MEDGEN ( [facility]) Body mass index 26.2 kg/m2 26.2 kg/m2 MEDGEN (S t (BMI) [Ratio] [facility], ) Diastolic blood 51 mm[Hg] 51 mm[Hg] MEDGEN (S t pressure [facility] , ) Systolic blood 98 mm[Hg] 98 mm[Hg] MEDGEN ([facility] ) Body weight 141 lb 141 lb MEDGEN ([facility]) Body height 61.5 in 61.5 in MEDGEN ([facility]) Heart rate 88 /min 88 /min MEDGEN ([facility]) Respiratory rate 16 /min 16 /min MEDGEN ( [facility]) Body temperature 97.6 F 97.6 F MEDGEN ( [facility]) Body mass index 26.2 kg/m2 26.2 kg/m2 MEDGEN (S t (BMI) [Ratio] [facility], ) Diastolic blood 51 mm[Hg] 51 mm[Hg] MEDGEN (S t pressure [facility] , ) Systolic blood 98 mm[Hg] 98 mm[Hg] MEDGEN ([facility] , ) Body weight 141 lb 141 lb MEDGEN ([facility]) Body height 61.5 in 61.5 in MEDGEN ([facility]) Heart rate 88 /min 88 /min MEDGEN ([facility]) Respiratory rate 16 /min 16 /min MEDGEN ( [facility]) Body temperature 97.6 F 97.6 F MEDGEN ( [facility]) Body mass index 26.2 kg/m2 26.2 kg/m2 MEDGEN (S t (BMI) [Ratio] [facility], ) Diastolic blood 51 mm[Hg] 51 mm[Hg] MEDGEN (S t pressure [facility]) Systolic blood 98 mm[Hg] 98 mm[Hg] MEDGEN ([facility]) Body weight 141 lb 141 lb MEDGEN ([facility]) Body height 61.5 in 61.5 in MEDGEN ([facility]) Heart rate 88 /min 88 /min MEDGEN ([facility]) Respiratory rate 16 /min 16 /min MEDGEN ( [facility]) Body mass index 26.6 kg/m2 26.6 kg/m2 MEDGEN (S t (BMI) [Ratio] [facility], ) Diastolic blood 74 mm[Hg] 74 mm[Hg] MEDGEN (S t pressure [facility]) Systolic blood 110 mm[Hg] 110 mm[Hg] MEDGEN ([facility]) Body weight 143 lb 143 lb MEDGEN ([facility]) Body height 61.5 in 61.5 in MEDGEN ([facility]) Heart rate 88 /min 88 /min MEDGEN ([facility]) Respiratory rate 16 /min 16 /min MEDGEN ( [facility]) Body mass index 26.6 kg/m2 26.6 kg/m2 MEDGEN (S t (BMI) [Ratio] [facility], ) Diastolic blood 74 mm[Hg] 74 mm[Hg] MEDGEN (S t pressure [facility]) Systolic blood 110 mm[Hg] 110 mm[Hg] MEDGEN ([facility]) Body weight 143 lb 143 lb MEDGEN ([facility]) Body height 61.5 in 61.5 in MEDGEN ([facility]) Heart rate 88 /min 88 /min MEDGEN ([facility]) Respiratory rate 16 /min 16 /min MEDGEN ( [facility]) Body mass index 26.6 kg/m2 26.6 kg/m2 MEDGEN (S t (BMI) [Ratio] [facility], ) Diastolic blood 74 mm[Hg] 74 mm[Hg] MEDGEN (S t pressure [facility]) Systolic blood 110 mm[Hg] 110 mm[Hg] MEDGEN ([facility]) Body weight 143 lb 143 lb MEDGEN ([facility]) Body height 61.5 in 61.5 in MEDGEN ([facility]) Heart rate 82 /min 82 /min MEDGEN ([facility]) Respiratory rate 17 /min 17 /min MEDGEN ( [facility]) Body mass index 26.8 kg/m2 26.8 kg/m2 MEDGEN (S t (BMI) [Ratio] [facility], ) Diastolic blood 60 mm[Hg] 60 mm[Hg] MEDGEN (S t pressure [facility]) Systolic blood 114 mm[Hg] 114 mm[Hg] MEDGEN ([facility] , ) Body weight 144 lb 144 lb MEDGEN ([facility]) Body height 61.5 in 61.5 in MEDGEN ([facility]) Heart rate 82 /min 82 /min MEDGEN ([facility] , ) Respiratory rate 17 /min 17 /min MEDGEN ( [facility]) Body mass index 26.8 kg/m2 26.8 kg/m2 MEDGEN (S t (BMI) [Ratio] [facility], ) Diastolic blood 60 mm[Hg] 60 mm[Hg] MEDGEN (S t pressure [facility] , ) Systolic blood 114 mm[Hg] 114 mm[Hg] MEDGEN ([facility]) Body weight 144 lb 144 lb MEDGEN ([facility]) Body height 61.5 in 61.5 in MEDGEN ([facility]) Heart rate 82 /min 82 /min MEDGEN ([facility]) Respiratory rate 17 /min 17 /min MEDGEN ( [facility]) Body mass index 26.8 kg/m2 26.8 kg/m2 MEDGEN (S t (BMI) [Ratio] [facility], ) Diastolic blood 60 mm[Hg] 60 mm[Hg] MEDGEN (S t pressure [facility] , ) Systolic blood 114 mm[Hg] 114 mm[Hg] MEDGEN ([facility] , ) Body weight 144 lb 144 lb MEDGEN ([facility]) Body height 61.5 in 61.5 in MEDGEN ([facility]) Heart rate 86 /min 86 /min MEDGEN ([facility]) Respiratory rate 17 /min 17 /min MEDGEN ( [facility]) Body mass index 26.4 kg/m2 26.4 kg/m2 MEDGEN (S t (BMI) [Ratio] [facility], ) Diastolic blood 65 mm[Hg] 65 mm[Hg] MEDGEN (S t pressure [facility]) Systolic blood 105 mm[Hg] 105 mm[Hg] MEDGEN ([facility]) Body weight 142 lb 142 lb MEDGEN ([facility]) Body height 61.5 in 61.5 in MEDGEN ([facility]) Heart rate 86 /min 86 /min MEDGEN ([facility]) Respiratory rate 17 /min 17 /min MEDGEN ( [facility]) Body mass index 26.4 kg/m2 26.4 kg/m2 MEDGEN (S t (BMI) [Ratio] [facility], ) Diastolic blood 65 mm[Hg] 65 mm[Hg] MEDGEN (S t pressure [facility]) Systolic blood 105 mm[Hg] 105 mm[Hg] MEDGEN ([facility]) Body weight 142 lb 142 lb MEDGEN ([facility]) Body height 61.5 in 61.5 in MEDGEN ([facility]) Heart rate 86 /min 86 /min MEDGEN ([facility]) Respiratory rate 17 /min 17 /min MEDGEN ( [facility]) Body mass index 26.4 kg/m2 26.4 kg/m2 MEDGEN (S t (BMI) [Ratio] [facility], ) Diastolic blood 65 mm[Hg] 65 mm[Hg] MEDGEN (S t pressure [facility]) Systolic blood 105 mm[Hg] 105 mm[Hg] MEDGEN ([facility] , ) Body weight 142 lb 142 lb MEDGEN ([facility]) Body height 61.5 in 61.5 in MEDGEN ([facility]) Heart rate 88 /min 88 /min MEDGEN ([facility]) Respiratory rate 17 /min 17 /min MEDGEN ( [facility]) Body temperature 97.4 F 97.4 F MEDGEN ( [facility]) Inhaled oxygen 90 % 90 % MEDGEN ([facility]) Body mass index 26.4 kg/m2 26.4 kg/m2 MEDGEN (S t (BMI) [Ratio] [facility], ) Diastolic blood 73 mm[Hg] 73 mm[Hg] MEDGEN (S t pressure [facility]) Systolic blood 134 mm[Hg] 134 mm[Hg] MEDGEN ([facility]) Body weight 142 lb 142 lb MEDGEN ([facility]) Body height 61.5 in 61.5 in MEDGEN ([facility]) Heart rate 88 /min 88 /min MEDGEN ([facility]) Respiratory rate 17 /min 17 /min MEDGEN ( [facility]) Body temperature 97.4 F 97.4 F MEDGEN ( [facility]) Inhaled oxygen 90 % 90 % MEDGEN ([facility]) Body mass index 26.4 kg/m2 26.4 kg/m2 MEDGEN (S t (BMI) [Ratio] [facility], ) Diastolic blood 73 mm[Hg] 73 mm[Hg] MEDGEN (S t pressure [facility]) Systolic blood 134 mm[Hg] 134 mm[Hg] MEDGEN ([facility]) Body weight 142 lb 142 lb MEDGEN ([facility]) Body height 61.5 in 61.5 in MEDGEN ([facility]) Heart rate 88 /min 88 /min MEDGEN ([facility]) Respiratory rate 17 /min 17 /min MEDGEN ( [facility]) Body temperature 97.4 F 97.4 F MEDGEN ( [facility]) Inhaled oxygen 90 % 90 % MEDGEN ([facility]) Body mass index 26.4 kg/m2 26.4 kg/m2 MEDGEN (S t (BMI) [Ratio] [facility]) Diastolic blood 73 mm[Hg] 73 mm[Hg] MEDGEN (S t pressure [facility] , ) Systolic blood 134 mm[Hg] 134 mm[Hg] MEDGEN ([facility] ) Body weight 142 lb 142 lb MEDGEN ([facility]) Body height 61.5 in 61.5 in MEDGEN ([facility]) Heart rate 72 /min 72 /min MEDGEN ([facility]) Respiratory rate 16 /min 16 /min MEDGEN ( [facility]) Body mass index 25.8 kg/m2 25.8 kg/m2 MEDGEN (S t (BMI) [Ratio] '[facility], ) Diastolic blood 70 mm[Hg] 70 mm[Hg] MEDGEN (S t pressure [facility] , ) Systolic blood 118 mm[Hg] 118 mm[Hg] MEDGEN ([facility]) Body weight 141 lb 141 lb MEDGEN ([facility]) Body height 62 in 62 in MEDGEN ([facility]) Diastolic blood 70 mm[Hg] 70 mm[Hg] MEDGEN (S t pressure [facility]) Systolic blood 118 mm[Hg] 118 mm[Hg] MEDGEN ([facility]) Body weight 141 lb 141 lb MEDGEN ([facility]) Body height 62 in 62 in MEDGEN ([facility]) Heart rate 72 /min 72 /min MEDGEN ([facility]) Respiratory rate 16 /min 16 /min MEDGEN ( [facility]) Body mass index 25.8 kg/m2 25.8 kg/m2 MEDGEN (S t (BMI) [Ratio] [facility], ) Diastolic blood 70 mm[Hg] 70 mm[Hg] MEDGEN (S t pressure [facility] , ) Systolic blood 118 mm[Hg] 118 mm[Hg] MEDGEN ([facility] ) Body weight 141 lb 141 lb MEDGEN ([facility]) Body height 62 in 62 in MEDGEN ([facility]) Heart rate 72 /min 72 /min MEDGEN ([facility]) Respiratory rate 16 /min 16 /min MEDGEN ( [facility]) Body mass index 25.8 kg/m2 25.8 kg/m2 MEDGEN (S t (BMI) [Ratio] [facility], ) Heart rate 88 /min 88 /min MEDGEN ([facility]) Respiratory rate 14 /min 14 /min MEDGEN ( [facility]) Body mass index 25.3 kg/m2 25.3 kg/m2 MEDGEN (S t (BMI) [Ratio] [facility], ) Diastolic blood 74 mm[Hg] 74 mm[Hg] MEDGEN (S t pressure [facility]) Systolic blood 121 mm[Hg] 121 mm[Hg] MEDGEN ([facility]) Body weight 136 lb 136 lb MEDGEN ([facility]) Body height 61.5 in 61.5 in MEDGEN ([facility]) Heart rate 88 /min 88 /min MEDGEN ([facility]) Respiratory rate 14 /min 14 /min MEDGEN ( [facility]) Body mass index 25.3 kg/m2 25.3 kg/m2 MEDGEN (S t (BMI) [Ratio] [facility], ) Diastolic blood 74 mm[Hg] 74 mm[Hg] MEDGEN (S pressure [facility]) Systolic blood 121 mm[Hg] 121 mm[Hg] MEDGEN ([facility]) Body weight 136 lb 136 lb MEDGEN ([facility]) Body height 61.5 in 61.5 in MEDGEN ([facility] [place]) Heart rate 88 /min 88 /min MEDGEN ([facility] [place]) Respiratory rate 14 /min 14 /min MEDGEN ( [facility] [place]) Body mass index 25.3 kg/m2 25.3 kg/m2 MEDGEN (S t (BMI) [Ratio] [facility], ) Diastolic blood 74 mm[Hg] 74 mm[Hg] MEDGEN (S t pressure [facility] [place]) Systolic blood 121 mm[Hg] 121 mm[Hg] MEDGEN ([facility]) Body weight 136 lb 136 lb MEDGEN ([facility] [place]) Body height 61.5 in 61.5 in MEDGEN ([facility] [place]) Heart rate 72 /min 72 /min MEDGEN ([facility] [place]) Respiratory rate 14 /min 14 /min MEDGEN ( [facility] [place]) Body temperature 98.7 F 98.7 F MEDGEN ( [facility] [place]) Body mass index 26 kg/m2 26 kg/m2 MEDGEN (S t (BMI) [Ratio] [facility], ) Systolic blood 146 mm[Hg] 146 mm[Hg] MEDGEN ([facility]) Body weight 140 lb 140 lb MEDGEN ([facility] [place]) Body height 61.5 in 61.5 in MEDGEN ([facility] [place]) Heart rate 72 /min 72 /min MEDGEN ([facility] [place]) Respiratory rate 14 /min 14 /min MEDGEN ( [facility] [place]) Body temperature 98.7 F 98.7 F MEDGEN ( [facility] [place]) Body mass index 26 kg/m2 26 kg/m2 MEDGEN (S t (BMI) [Ratio] [facility], ) Systolic blood 146 mm[Hg] 146 mm[Hg] MEDGEN ([facility]) Body weight 140 lb 140 lb MEDGEN ([facility] [place]) Body height 61.5 in 61.5 in MEDGEN ([facility] [place]) Heart rate 72 /min 72 /min MEDGEN ([facility] [place]) Respiratory rate 14 /min 14 /min MEDGEN ( [facility] [place]) Body temperature 98.7 F 98.7 F MEDGEN ( [facility] [place]) Body mass index 26 kg/m2 26 kg/m2 MEDGEN (S t (BMI) [Ratio] [facility], ) Systolic blood 146 mm[Hg] 146 mm[Hg] MEDGEN ([facility]) Body weight 140 lb 140 lb MEDGEN ([facility] [place]) Body height 61.5 in 61.5 in MEDGEN ([facility] [place]) Heart rate 82 /min 82 /min MEDGEN ([facility] [place]) Respiratory rate 14 /min 14 /min MEDGEN ( [facility] [place]) Body mass index 25.5 kg/m2 25.5 kg/m2 MEDGEN (S t (BMI) [Ratio] [facility]) Diastolic blood 70 mm[Hg] 70 mm[Hg] MEDGEN (S t pressure [facility] [place]) Systolic blood 100 mm[Hg] 100 mm[Hg] MEDGEN ([facility]) Body weight 137 lb 137 lb MEDGEN ([facility] [place]) Body height 61.5 in 61.5 in MEDGEN ([facility] [place]) Heart rate 82 /min 82 /min MEDGEN ([facility] [place]) Respiratory rate 14 /min 14 /min MEDGEN ( [facility] [place]) Body mass index 25.5 kg/m2 25.5 kg/m2 MEDGEN (S t (BMI) [Ratio] [facility] [place]) Diastolic blood 70 mm[Hg] 70 mm[Hg] MEDGEN (S t pressure [facility] [place]) Systolic blood 100 mm[Hg] 100 mm[Hg] MEDGEN ([facility]) Body weight 137 lb 137 lb MEDGEN ([facility] [place]) Body height 61.5 in 61.5 in MEDGEN ([facility] [place]) Heart rate 82 /min 82 /min MEDGEN ([facility] [place]) Respiratory rate 14 /min 14 /min MEDGEN ( [facility] [place]) Body mass index 25.5 kg/m2 25.5 kg/m2 MEDGEN (S t (BMI) [Ratio] [facility], ) Diastolic blood 70 mm[Hg] 70 mm[Hg] MEDGEN (S t [facility]) Systolic blood 100 mm[Hg] 100 mm[Hg] MEDGEN ([facility]) Body weight 137 lb 137 lb MEDGEN ([facility] [place]) Body height 61.5 in 61.5 in MEDGEN ([facility] [place]) Heart rate 115 /min 115 /min MEDGEN ([facility] [place]) Inhaled oxygen 92 % 92 % MEDGEN ([facility]) Body mass index 26 kg/m2 26 kg/m2 MEDGEN (S t (BMI) [Ratio] [facility], ) Diastolic blood 85 mm[Hg] 85 mm[Hg] MEDGEN (S t pressure [facility] [place]) Systolic blood 125 mm[Hg] 125 mm[Hg] MEDGEN ([facility]) Body weight 142 lb 142 lb MEDGEN ([facility] [place]) Body height 62 in 62 in MEDGEN ([facility] [place]) Heart rate 115 /min 115 /min MEDGEN ([facility] [place]) Inhaled oxygen 92 % 92 % MEDGEN ([facility], ) Body mass index 26 kg/m2 26 kg/m2 MEDGEN (S t (BMI) [Ratio] [facility], ) Diastolic blood 85 mm[Hg] 85 mm[Hg] MEDGEN (S t pressure [facility] [place]) Systolic blood 125 mm[Hg] 125 mm[Hg] MEDGEN ([facility]) Body weight 142 lb 142 lb MEDGEN ([facility] [place]) Body height 62 in 62 in MEDGEN ([facility] [place]) Heart rate 115 /min 115 /min MEDGEN ([facility] [place]) Inhaled oxygen 92 % 92 % MEDGEN ([facility], ) Body mass index 26 kg/m2 26 kg/m2 MEDGEN (S t (BMI) [Ratio] [facility], ) Diastolic blood 85 mm[Hg] 85 mm[Hg] MEDGEN (S t [facility]) Systolic blood 125 mm[Hg] 125 mm[Hg] MEDGEN ([facility]) Body weight 142 lb 142 lb MEDGEN ([facility] [place]) Body height 62 in 62 in MEDGEN ([facility] [place])
--- NOTE | 2020-05-21 14:44 | PDOC ---
History of Present Illness - General Chief Complaint: Pain, Acute Stated Complaint: BUTTOCK WOUND, RIGHT KNEE PAIN Time Seen by Provider: 05/21/20 14:38 History Source: Patient Exam Limitations: No Limitations - History of Present Illness Initial Comments: 05/21/20 14:39 89-year-old female history of hypertension CHF afib on coumadin, prior mitral valve replacement x 2, chronic upper posterior thigh wound here today complaining of bilateral leg swelling and inability to walk. Patient states that she was in her chair last evening and fell asleep in her chair this morning she was unable to get up because of significant swelling in her legs and also complaining of right knee pain therefore today in the afternoon she pushed the life alert button because she was unable to get up from her chair patient does live alone currently does not have help at home does have family lives close by the comes to check on her frequently denies any fevers chills nausea vomiting no chest pain does have mild shortness of breath which seems to be at baseline she does not lie flat at night swelling in the legs is bilateral worse than normal. No fevers no chills no chest pain no history of PE or DVT 05/21/20 14:52 Past History - Medical History Allergies/Adverse Reactions: Allergies Allergy/AdvReac Type Severity Reaction Status Date / Time No Known Allergies Allergy Verified 05/21/20 14:23 Home Medications: Ambulatory Orders Carvedilol [Coreg -] 12.5 mg PO BID #30 tablet 05/26/17 Famotidine [Pepcid -] 20 mg PO BID tablet 05/26/17 Simvastatin [Zocor -] 20 mg PO HS 06/21/17 Montelukast Na [Singulair -] 10 mg PO HS 01/10/19 Tiotropium [place] [Spiriva] 1 inh PO DAILY 01/13/19 Potassium Chloride [K-Dur -] 20 meq PO DAILY #30 tablet.er 01/14/19 Warfarin Na [Coumadin -] 5 mg PO SUTUTHSA 04/23/20 Warfarin Na [Coumadin] 2.5 mg PO MOWEFR 04/23/20 Acetaminophen [Tylenol Extra Strength] 1,000 mg PO TID PRN 05/21/20 Furosemide [Lasix -] 40 mg PO DAILY 05/21/20 Anemia: No Asthma: Yes (DX IN HER 30'S-STABLE) Cancer: Yes (LEFT BREAST CA-DX 2009) Cardiac Disorders: Yes (VALVE DISEASE) CVA: No COPD: No CHF: Yes Dementia: No Diabetes: No GI Disorders: No Disorders: No HTN: Yes Hypercholesterolemia: Yes (DX 2009) Liver Disease: No Seizures: No Thyroid Disease: Yes (hypo) - Surgical History Abdominal Surgery: Yes Appendectomy: No Cardiac Surgery: Yes (VALVE REPLACED X 2-MECHANICAL -1995 THEN REPLACED FLESH- 2014) Cholecystectomy: Yes (LAP CHOLEY-2011) Lung Surgery: No Neurologic Surgery: No Orthopedic Surgery: No - Immunization History Td Vaccination: Yes TDAP Vaccination: No Immunization Up to Date: Yes - Psycho-Social/Smoking History Smoking Status: No Smoking History: Former smoker Have you smoked in the past 12 months: No Number of Cigarettes Smoked Daily: 0 If you are a former smoker, when did you quit?: 1986 Review of Systems - Review of Systems Constitutional: No: Chills, Fever HEENTM: No: Eye Pain Respiratory: Yes: Shortness of Breath. No: Cough Cardiac (ROS): Yes: Edema. No: Chest Pain ABD/GI: No: Nausea, Vomiting Musculoskeletal: Yes: Joint Pain, Joint Swelling Integumentary: Yes: Erythema. No: Bruising All Other Systems: Reviewed and Negative *Physical Exam - Physical Exam 05/21/20 14:43 Awake alert no acute distress lungs are decreased airflow bilateral bases but no wheezes no crackles appreciated heart is regular with any murmurs rubs or gallops abdomen is soft nontender extremities are warm well perfused bilat erally. There is bilateral significant pitting edema 2+ bilateral lower extremities to the level of the knee there is mild erythema to the ankles up to the mid linder of the right lower extremity is noted for posterior thigh wound which has granulation tissue no surrounding erythema at approximately 0.5 x 1 cm circular wound. Neurologically patient is awake alert and oriented x3 ED Treatment Course - LABORATORY CBC & Chemistry Diagram: 05/21/20 15:00 05/21/20 15:00 Medical Decision Making - Medical Decision Making 05/21/20 14:44 89-year-old female multiple medical problems including COPD CHF hypertension mitral valve prolapse here with mitral valve placement with bilateral leg edema edema and knee pain to the extent that she cannot walk patient will require admission to the hospital for PT eval and possible arrangement of assistance in the home or possible rehab. Differential for the swelling includes cellulitis CHF renal failure or DVT. Plan ultrasound bilateral legs basic labs chest x-ray EKG admission will likely acquire mild diuresis as well 05/21/20 16:02 pt trop is elevated 1.79. 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 [phone]. ekg afib wtih rate 85. no st elevation or depression. pcp d/w covering doctor Tony, will let dr larsen know regarding patient. 05/21/20 16:[address] dominguez. 05/21/20 17:10 case d/w dr perez who will see the patient. believes troponin due to heart failure congestion syndrome. recommend lasix and admit to telemetry. asa held as pt INR over 4. d/w admitting team dr Sheridan, will see patient. pt to be transferred to telemetry at [facility]. Discharge - Discharge Information Problems reviewed: Yes Clinical Impression/Diagnosis: Leg edema, Cannot walk, NSTEMI (non-ST elevated myocardial infarction), CHF ( congestive heart failure) Condition: Good - Admission Yes - Follow up/Referral Referrals: Vitaliy Dominguez MD [Primary Care Provider] - - Patient Discharge Instructions - Post Discharge Activity
[2020-05-21 15:28] LABS: BASO % 0.5 % (0-2.0); EOS % 0.3 % (0-4.5); HEMATOCRIT 33.4 % (32.4-45.2); HEMOGLOBIN 10.6 GM/dl (10.7-15.3); LYMPH % 8.8 % (8-40); MCH 28.7 pg (25.7-33.7); MCHC 31.6 g/dl (32.0-36.0); MEAN CELL VOLUME 90.6 fl (80-96); MEAN PLT VOLUME 8.2 fl (7.5-11.1); MONO % 10.9 % (3.8-10.2); NEUT % 79.5 % (42.8-82.8); PLATELET COUNT 154 K/MM3 (134-434); RBC 3.69 M/mm3 (3.60-5.2); RDW 17.1 % (11.6-15.6); WHITE BLOOD COUNT 6.3 K/mm3 (4.0-10.8)
[2020-05-21 15:33] LABS: CALCIUM 8.9 mg/dl (8.5-10); POTASSIUM 3.8 mmol/L (3.5-5.1)
[2020-05-21 15:47] LABS: INR 4.79 (0.82-1.09)
[2020-05-21 15:50] LABS: BILIRUBIN,TOTAL 1.1 mg/dl (0.2-1); CREATININE 1.4 mg/dl (0.55-1.3)
[2020-05-21 16:50] LABS: N-TERMINAL BNP 2537.1 pg/ml (5-450)
[2020-05-21] MEDS ORDERED: FUROSEMIDE 40 MG/4 ML INJECTABLE VIAL IVPUSH ONE (17:40)
[2020-05-21] MEDS ORDERED: FUROSEMIDE 40 MG/4 ML INJECTABLE VIAL ONE (17:45)
[2020-05-21] MEDS ORDERED: NITROGLYCERIN SUBLINGUAL 1/150 0.4 MG TAB SL PRN (18:47)
[2020-05-21] MEDS ORDERED: ALBUTEROL SO4 HFA INHALER IH PRN (19:00)
--- NOTE | 2020-05-21 19:02 | HP ---
CHIEF COMPLAINT: couldnt get up PCP: Alberto Cardio: Kyler Larsen HISTORY OF PRESENT ILLNESS: 89-year-old female history of hypertension CHF afib on coumadin, prior mitral valve replacement x 2 ( initially mechanical, but switched to bovine) chronic upper posterior thigh wound, COPD vs Asthma here today complaining of bilateral leg swelling and inability to walk. Patient was initially seen at [facility], then transferred to [facility] for NSTEMI. Patient reports having trouble walking lately due to shortness of breath. She sleeps in a recliner chair and couldnt get out of the chair this am due to leg swelling. She used her life alert button for help and was brought to the ED. Pt reports living alone but has family close by (her children). She received Lasix at [facility], states her shortness of breath is slightly better. She denies any chest pain, no nausea or vomiting, no recent fevers, chills, diarrhea or urinary issues. She has not been out of the house for months due to COVID except for doctor visits. She is going to wound care for her left post thigh wound. ER course was notable for: (1) Pos trop (2) Congestion on CXR (3) leg edema Recent Travel: Denies PAST MEDICAL HISTORY: as above PAST SURGICAL HISTORY: MVR x 2, cholecystectomy, neck cyst removal Social History: Smoking: distant social smoker, but [id number] great deal of second hand smoke exposure thru Alcohol: occasional Drugs: none Allergies No Known Allergies Allergy (Verified 05/21/20 14:23) HOME MEDICATIONS: Home Medications Medication Instructions Recorded Carvedilol [Coreg -] 12.5 mg PO BID #30 tablet 05/26/17 Famotidine [Pepcid -] 20 mg PO BID tablet 05/26/17 Simvastatin [Zocor -] 20 mg PO HS 06/21/17 Montelukast Na [Singulair -] 10 mg PO HS 01/10/19 Tiotropium [place] [Spiriva] 1 inh PO DAILY 01/13/19 Potassium Chloride [K-Dur -] 20 meq PO DAILY #30 tablet.er 01/14/19 Warfarin Na [Coumadin -] 5 mg PO SUTUTHSA 04/23/20 Warfarin Na [Coumadin] 2.5 mg PO MOWEFR 04/23/20 Acetaminophen [Tylenol Extra 1,000 mg PO TID PRN 05/21/20 Strength] Furosemide [Lasix -] 40 mg PO DAILY 05/21/20 REVIEW OF SYSTEMS CONSTITUTIONAL: Absent: fever, chills, diaphoresis, generalized weakness, malaise, loss of appetite, weight change HEENT: Absent: rhinorrhea, nasal congestion, throat pain, throat swelling, difficulty swallowing, mouth swelling, ear pain, eye pain, visual changes CARDIOVASCULAR: Absent: chest pain, syncope, palpitations, irregular heart rate, lightheadedne ss, POS peripheral edema RESPIRATORY: Absent: cough, POS shortness of breath, dyspnea with exertion, orthopnea, NO wheezing, stridor, hemoptysis GASTROINTESTINAL: Absent: abdominal pain, abdominal distension, nausea, vomiting, diarrhea, constipation, melena, hematochezia GENITOURINARY: Absent: dysuria, frequency, urgency, hesitancy, hematuria, flank pain, genital pain MUSCULOSKELETAL: Absent: myalgia, arthralgia, joint swelling, back pain, neck pain, POS RIGHT LEG PAIN, RIGHT KNEE PAIN SKIN: Absent: rash, itching, pallor HEMATOLOGIC/IMMUNOLOGIC: Absent: easy bleeding, easy bruising, lymphadenopathy, frequent infections ENDOCRINE: Absent: unexplained weight gain, unexplained weight loss, heat intolerance, cold intolerance NEUROLOGIC: Absent: headache, focal weakness or paresthesias, dizziness, unsteady gait, seizure, mental status changes, bladder or bowel incontinence PSYCHIATRIC: Absent: anxiety, depression, suicidal or homicidal ideation, hallucinations. PHYSICAL EXAMINATION Vital Signs - 24 hr 05/21/20 05/21/20 05/21/20 14:12 16:00 18:23 Temperature 98.4 F 98.9 F Pulse Rate 84 101 H Pulse Rate [ 81 Apical] Respiratory 20 18 20 Rate Blood Pressure 94/65 138/74 Blood Pressure 101/67 [Right Arm] O2 Sat by Pulse 95 95 Oximetry (%) GENERAL: Awake, alert, and fully oriented, in no acute distress. SLIGHTLY TACHYPNEIC HEAD: Normal with no signs of trauma. EYES: extraocular movements intact, sclera anicteric, conjunctiva clear. No lid lag. EARS, NOSE, THROAT: Ears normal, nares patent, oropharynx clear without exudates. Moist mucous membranes. NECK: Normal range of motion, supple without lymphadenopathy, POS JVD LUNGS: Breath sounds equal, clear to auscultation bilaterally. EXTREMELY DIMINSHED BS KALIE, POS RALES KALIE HEART: IRegular rate and rhythm, normal S1 and S2 POS MURMUR ABDOMEN: Soft, nontender, not distended, normoactive bowel sounds, no guarding, no rebound, no masses. No hepatomegaly or splenomegaly. MUSCULOSKELETAL: Normal range of motion at all joints. No bony deformities or tenderness. No CVA tenderness. UPPER EXTREMITIES: 2+ pulses, warm, well-perfused. No cyanosis. No clubbing. POS 1+ KALIE edema. NO CALF TENDERNESS LOWER EXTREMITIES: 2+ pulses, warm, well-perfused. No calf tenderness. No peripheral edema. NEUROLOGICAL: Cranial nerves II-XII intact. Normal speech. UNABLE TO AMBULATE CURRENTLY PSYCHIATRIC: Cooperative. Good eye contact. Appropriate mood and affect. SKIN: Warm, dry, normal turgor, no rashes or lesions noted, normal capillary refill. POS POST RIGHT THIGH SMALL OPEN WOUND, NO ACTIVE DRAINAGE, NO SURROUNDING ERYTHEMA Laboratory Results - last 24 hr 05/21/20 05/21/20 05/21/20 15:00 15:00 15:00 WBC 6.3 RBC 3.69 Hgb 10.6 L Hct 33.4 MCV 90.6 MCH 28.7 D MCHC 31.6 L RDW 17.1 H Plt Count 154 MPV 8.2 Absolute Neuts (auto) 5.0 Neutrophils % 79.5 Lymphocytes % 8.8 Monocytes % 10.9 H Eosinophils % 0.3 Basophils % 0.5 PT with INR INR PTT (Actin FS) Sodium 142 Potassium 3.8 Chloride 102 Carbon Dioxide 31 Anion Gap 9 BUN 32.0 H Creatinine 1.4 H Est GFR (CKD-EPI)AfAm 38.78 Est GFR (CKD-EPI)NonAf 33.46 Random Glucose 79 Calcium 8.9 Total Bilirubin 1.1 H AST 20 ALT 11 L Alkaline Phosphatase 60 Troponin I 1.76 H* B-Natriuretic Peptide 2537.1 H Total Protein 6.0 L Albumin 3.0 L Urine Color Urine Appearance Urine pH Urine Protein Urine Glucose (UA) Urine Ketones Urine Blood Urine Nitrite Urine Bilirubin Urine Urobilinogen Ur Leukocyte Esterase 05/21/20 05/21/20 15:00 18:25 WBC RBC Hgb Hct MCV MCH MCHC RDW Plt Count MPV Absolute Neuts (auto) Neutrophils % Lymphocytes % Monocytes % Eosinophils % Basophils % PT with INR 52.0 H INR 4.79 H* PTT (Actin FS) 44.0 H Sodium Potassium Chloride Carbon Dioxide Anion Gap BUN Creatinine Est GFR (CKD-EPI)AfAm Est GFR (CKD-EPI)NonAf Random Glucose Calcium Total Bilirubin AST ALT Alkaline Phosphatase Troponin I B-Natriuretic Peptide Total Protein Albumin Urine Color Yellow Urine Appearance Clear Urine pH 6.0 Urine Protein Negative Urine Glucose (UA) Negative Urine Ketones Negative Urine Blood Negative Urine Nitrite Negative Urine Bilirubin Negative Urine Urobilinogen 0.2 Ur Leukocyte Esterase Negative cxr: kalie vasc congestion ekg: A FIB 101BPM ASSESSMENT/PLAN: 89 y/o female with the above med hx admitted with NSTEMI, acute decompensated HF *NSTEMI -likely from CHF, cont to monitor on tele, trend troponins and cardiac enzymes -Cardio was contacted already, hold asa due to high inr, no iv heparin since already anticoagulated (INR high over 4) - Monitor on tele for any arrhythmias - Cont bb, statin -No current chest pain - sl nitro if any pain occurs - further plans as per cardio *acute decompensated heart failure - dietary indiscretion? from rapid a fib? valvular issues -- check echo hold po lasix, start on iv lasix bid 40mg - monitor renal fn *Renal Insuff - due to hypervolemia? monitor as diuresing recheck renal fn in am *chronic thigh wound - stable, doesnt appear infected cont local wound care *hypothyroidism - cont synthroid check tsh in am *hx of mvr - on coumadin inr over 4 hold coumadin recheck inr in am restart coumadin once inr less than 3 unless any procedures planned per cardio *dvt prophy - inr over 3 already await covid test results will need physical therapy eval once cardiac status stable (safe to be living alone?) Family Medical History Family History: As Documented Family Hx Nuerologic Problems: Father (cva) Other Family History: father - gastric cancer Visit type - Medication Review Med list reviewed for High Risk Meds patients 65 and older: Yes (but pt unsure of doses of meds, please verify in am wit pharmacy) - Emergency Visit Emergency Visit: No - New Patient This patient is new to me today: Yes Date on this admission: 05/21/20 - Critical Care Critical Care patient: No
[2020-05-21] MEDS ORDERED: FAMOTIDINE 20 MG TABLET PO ONE (19:23)
[2020-05-21] MEDS ORDERED: FAMOTIDINE 20 MG TABLET PO SCH (22:00)
[2020-05-21] MEDS: MONTELUKAST NA 10 MG TABLET PO SCH (22:01)
[2020-05-21] MEDS: ATORVASTATIN CA 10 MG TABLET (FP) PO SCH (22:01)
[2020-05-21] MEDS: CARVEDILOL 12.5 MG TABLET (FP) PO SCH (22:01)
[2020-05-22] MEDS: LEVOTHYROXINE NA 25 MCG TABLET (FP) PO SCH (06:16)
[2020-05-22] MEDS: FUROSEMIDE 40 MG/4 ML INJECTABLE VIAL IVPUSH SCH ×2 (06:20→16:16)
[2020-05-22 07:39] LABS: INR 3.67 (0.83-1.09); PROTHROMBIN TIME (PATIENT) 43.9 SEC (9.7-13.0)
[2020-05-22 07:59] LABS: BASO % 0.6 % (0-2.0); EOS % 0.5 % (0-4.5); HEMOGLOBIN 9.7 GM/dL (10.7-15.3); LYMPH % 9.5 % (8-40); MCH 28.5 pg (25.7-33.7); MCHC 32.5 g/dl (32.0-36.0); MEAN CELL VOLUME 87.7 fl (80-96); MEAN PLT VOLUME 8.5 fl (7.5-11.1); MONO % 10.8 % (3.8-10.2); NEUT % 78.6 % (42.8-82.8); PLATELET COUNT 135 K/MM3 (134-434); RBC 3.42 M/mm3 (3.60-5.2); RDW 18.3 % (11.6-15.6); WHITE BLOOD COUNT 5.3 K/mm3 (4.0-10.0)
[2020-05-22 08:14] LABS: ANION GAP 4 MMOL/L (8-16); BLOOD UREA NITROGEN 26.9 mg/dL (7-18); CHLORIDE 104 mmol/L (98-107); CHOLESTEROL 103 mg/dL (50-200); CO2 35 mmol/L (21-32); CREATININE 1.1 mg/dL (0.55-1.3); GLUCOSE,RANDOM 81 mg/dL (74-106); HDL CHOLESTEROL 44 mg/dL (40-60); LDL CHOLESTEROL (ONLY SJRH) 54 mg/dL (5-100); MAGNESIUM 1.9 mg/dL (1.8-2.4); POTASSIUM 3.6 mmol/L (3.5-5.1); SODIUM 143 mmol/L (136-145); TRIGLYCERIDES 83 mg/dL (0-150)
[2020-05-22 08:21] LABS: N-TERMINAL BNP 1791.1 pg/ml (5-450)
[2020-05-22] MEDS: CARVEDILOL 12.5 MG TABLET (FP) PO SCH ×2 (09:05→22:12)
[2020-05-22] MEDS: FAMOTIDINE 10 MG TABLET PO SCH (09:05)
[2020-05-22] MEDS: TIOTROPIUM BROMIDE 2.5 MCG (SPIRIVA) RESPIMAT INHALER IH SCH ×2 (09:05→10:10)
--- NOTE | 2020-05-22 09:13 | CON.CARD ---
Consult Consult Specialty:: Cardiology Referred by:: Hospitalist Medicine Reason for Consultation:: Demand ischemia, recurrent CHF - History of Present Illness Chief Complaint: Bilateral LE edema and MOE History of Present Illness: PCP: Alberto Cardio: Kyler Larsen 89 yo female with hx of HTN, HLD, aortic dissection -> repaired in [facility] 96, MR -> [facility] mechanical MVR in 05/07 -> IE -> redo bovine bio-MVR in 09/[address] Lofton at [facility], chronic diastolic heart failure, afib on coumadin per INR, asthma with chronic MOE, chronic upper posterior thigh wound, intermittent lower extremity edema, referred for increasing bilateral lower extremity swelling, MOE, orthopnea, PND, inability to ambulate, received IV diuresis with improveme nt in symptoms. She denies associated chest pain, palpitations, near or true syncope, orthopnea, PND. She has not been out of the house for months due to COVID except for doctor visits. She is going to wound care for her left post thigh wound. Admits to adding salt to diet, reports medication compliance and denies NSAID use. - History Source History Provided By: Family Member Limitations to Obtaining History: Poor Historian - Past Medical History Cardio/Vascular: Yes: AFIB, Aneurysm, CHF, HTN, Hyperlipdemia, Mitral Insufficiency, Other Pulmonary: Yes: Asthma ...: No Psych: Yes: Anxiety, Depression Endocrine: Yes: Hypothyroidism Additional Medical History: MRSA infection of sternotomy site. Right diaphragm paralysis following thoracotomy - Past Surgical History Past Surgical History: Yes: Cataract Removal, Cholecystectomy, Valve Replacement - Alcohol/Substance Use Hx Alcohol Use: Yes (rarely) History of Substance Use: reports: None - Smoking History Smoking history: Former smoker Have you smoked in the past 12 months: No Aproximately how many cigarettes per day: 0 If you are a former smoker, when did you quit?: 1986 - Social History Usual Living Arrangement: Alone ADL: Family Assistance History of Recent Travel: Yes Home Medications - Allergies Allergies/Adverse Reactions: Allergies Allergy/AdvReac Type Severity Reaction Status Date / Time No Known Allergies Allergy Verified 05/21/20 14:23 - Home Medications Home Medications: Ambulatory Orders Carvedilol [Coreg -] 12.5 mg PO BID #30 tablet 05/26/17 Famotidine [Pepcid -] 20 mg PO BID tablet 05/26/17 Simvastatin [Zocor -] 20 mg PO HS 06/21/17 Montelukast Na [Singulair -] 10 mg PO HS 01/10/19 Tiotropium [place] [Spiriva] 1 inh PO DAILY 01/13/19 Potassium Chloride [K-Dur -] 20 meq PO DAILY #30 tablet.er 01/14/19 Warfarin Na [Coumadin -] 5 mg PO SUTUTHSA 04/23/20 Warfarin Na [Coumadin] 2.5 mg PO MOWEFR 04/23/20 Acetaminophen [Tylenol Extra Strength] 1,000 mg PO TID PRN 05/21/20 Furosemide [Lasix -] 40 mg PO DAILY 05/21/20 Family Medical History Family Hx Nuerologic Problems: Father (cva) Other Family History: father - gastric cancer Review of Systems - Review of Systems Cardiovascular: reports: Edema, Shortness of Breath Respiratory: reports: Orthopnea, PND, SOB, SOB on Exertion Vital Signs: Vital Signs Temperature 98.3 F 05/22/20 05:00 Pulse Rate 106 H 05/22/20 05:00 Respiratory Rate 05/22/20 05:00 Blood Pressure 117/71 05/22/20 05:00 O2 Sat by Pulse Oximetry (%) 96 05/22/20 05:00 Constitutional: Yes: No Distress, Calm, Thin Neck: Yes: Supple Respiratory: Yes: Regular, Diminished, On Nasal O2, SOB, SOB on Exertion Gastrointestinal: Yes: Normal Bowel Sounds, Soft Cardiovascular: Yes: Tachycardia, Pulse Irregular JVD: No Carotid Bruit: No Heart Sounds: Yes: S1, S2 Murmur: Yes: Systolic Murmur, Grade 1 Edema: No - Other Data Labs, Other Data: CBC, BMP 05/22/20 06:30 05/22/20 06:30 INR, PTT INR 3.67 (0.83-1.09) H 05/22/20 06:30 Troponin, BNP 05/21/20 05/21/20 05/21/20 15:00 15:00 21: Troponin I 1.76 H* < 0.02 B-Natriuretic Peptide 2537.1 H 05/22/20 06:30 Troponin I < 0.02 B-Natriuretic Peptide 1791.1 H Troponin, BNP 05/21/20 05/21/20 05/21/20 15:00 15:00 21:23 Troponin I 1.76 H* < 0.02 B-Natriuretic Peptide 2537.1 H 05/22/20 06:30 Troponin I < 0.02 B-Natriuretic Peptide 1791.1 H Afib @ 101 IVCD, PVC Echo: Report Reviewed Ejection Fraction %: LVEF > or = 40 % Imaging - Results Chest X-ray: Report Reviewed (Chronic bibasilar changes) Problem List - Problems (1) Acute kidney injury superimposed on CKD Code(s): N17.9 - ACUTE KIDNEY FAILURE, UNSPECIFIED; N18.9 - CHRONIC KIDNEY DISEASE, UNSPECIFIED (2) Congestive heart failure Code(s): I50.9 - HEART FAILURE, UNSPECIFIED Qualifiers: Heart failure type: diastolic Heart failure chronicity: acute on chronic Qualified Code(s): I50.33 - Acute on chronic diastolic (congestive) heart failure (3) Afib Code(s): I48.91 - UNSPECIFIED ATRIAL FIBRILLATION Qualifiers: Atrial fibrillation type: permanent Qualified Code(s): I48.21 - Permanent atrial fibrillation (4) Bilateral lower extremity edema Code(s): R60.0 - LOCALIZED EDEMA (5) Elevated INR Code(s): R79.1 - ABNORMAL COAGULATION PROFILE (6) HTN (hypertension) Code(s): I10 - ESSENTIAL (PRIMARY) HYPERTENSION Qualifiers: Hypertension type: essential hypertension Qualified Code(s): I10 - Essential (primary) hypertension (7) Hx of mitral valve repair Code(s): Z98.890 - OTHER SPECIFIED POSTPROCEDURAL STATES (8) Demand ischemia Code(s): I24.8 - OTHER FORMS OF ACUTE ISCHEMIC HEART DISEASE (9) Hyperlipidemia Code(s): E78.5 - HYPERLIPIDEMIA, UNSPECIFIED Qualifiers: Hyperlipidemia type: pure hypercholesterolemia Qualified Code(s): E78.00 - Pure hypercholesterolemia, unspecified; E78.0 - Pure hypercholesterolemia Assessment/Plan 01/11/2019 Echo: Normal LV size with mild cLVH and normal LV fxn, LVEF 60-65%, normal RV size and fxn, normal biatrial sizes, bioprosthetic MV with MR, mod TR RVSP 39 mmHg, mild-mod AR, tr-mild AL, large pleural effusion 05/30/2016 Echo: Mildly dilated LV with mild cLVH, severe globcal HK of LV, mild decreased RV fxn, bioMVR, mild MR, mild TR RVSP 30-40 mmHg, mild-mod AR, mild AL, large pleural effusion 1. Acute on chronic diastolic heart failure with demand ischemia improving 2. 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 Thoracic aortic dissection s/p repair 4. Permanent afib on coumadin with supratherapeutic INR 5. COPD 6. Acute on CKD due to hemodynamic alterations improved P:1. IV diuresis with monitor diuretic response, renal fxn and electrolytes 2. Continue carvedilol 12.5 bid, resume cozaar 25 qd as hemodynamics tolerate, Zocor 20 qhs, Spiriva MDI and Singulair 3. Coumadin per INR 2-3 with GI protection 4. Troponins downtrending 5. Eventual f/u with Dr. Kyler Larsen at [facility] upon d/c 6. Thank you for consultative opportunity
[2020-05-22] MEDS ORDERED: FUROSEMIDE 40 MG/4 ML INJECTABLE VIAL IVPUSH SCH (10:00)
--- NOTE | 2020-05-22 11:43 | EKG ---
Test Reason : Blood Pressure : / mmHG Vent. Rate : 085 BPM Atrial Rate : 076 BPM P-R Int : 000 ms QRS Dur : 116 ms QT Int : 418 ms P-R-T Axes : 000 -17 071 degrees QTc Int : 497 ms ATRIAL FIBRILLATION WITH PREMATURE VENTRICULAR OR ABERRANTLY CONDUCTED COMPLEXES INCOMPLETE LEFT BUNDLE BRANCH BLOCK ABNORMAL ECG WHEN COMPARED WITH ECG OF 10-JAN-2019 19:43, NO SIGNIFICANT CHANGE WAS FOUND Confirmed by REINA SEXTON, ARIADNE ([id number]) on 05/22/2020 11:43:05 AM Referred By: Confirmed By:ARIADNE HUANG MD
--- NOTE | 2020-05-22 11:43 | EKG ---
Test Reason : Blood Pressure : / mmHG Vent. Rate : 101 BPM Atrial Rate : 076 BPM P-R Int : 000 ms QRS Dur : 114 ms QT Int : 400 ms P-R-T Axes : 000 -24 090 degrees QTc Int : 518 ms ATRIAL FIBRILLATION WITH RAPID VENTRICULAR RESPONSE WITH PREMATURE VENTRICULAR OR ABERRANTLY CONDUCTED COMPLEXES ABNORMAL ECG WHEN COMPARED WITH ECG OF 21-MAY-2020 15:30, NO SIGNIFICANT CHANGE WAS FOUND Confirmed by ARIADNE HUANG MD ([id number]) on 05/22/2020 11:43:00 AM Referred By: CHICHI COVARRUBIAS Confirmed By:ARIADNE HUANG MD
--- NOTE | 2020-05-22 12:56 | PN ---
Teaching Attending Note Name of Resident: Simone Nickerson ATTENDING PHYSICIAN STATEMENT I saw and evaluated the patient. I reviewed the resident's note and discussed the case with the resident. I agree with the resident's findings and plan as documented. SUBJECTIVE: Seen and examined at bedside. Patient reports shortness of breath improved. Tr oponins resolved. States primary complaint was, in fact, being unable to walk due to right knee pain. OBJECTIVE Last Vital Signs Temp Pulse Resp BP Pulse Ox 98.4 F 109 H 18 103/58 L 96 05/22/20 09:00 05/22/20 09:00 05/22/20 09:00 05/22/20 09:00 05/22/20 10:00 PE: Per resident note Labs/Imaging: reviewed ASSESSMENT/PLAN 10-year-old female with history of HTN, HLD, aortic dissection status post repair, mitral regurg with bovine valve, permanent A. fib on Coumadin, diastolic heart failure, asthma, chronic upper posterior thigh wound presented with dyspnea, orthopnea, inability to ambulate, and knee pain, found to be in CHF exacerbation. #Acute on chronic diastolic CHF exacerbation Continue IV Lasix 40 mg twice daily for today, switch to daily IV tomorrow Troponin normalized Cardiology on board: Appreciate recommendations Continue Coreg #NSTEMI -troponins downtrended -likely type II in setting of demand -cardiology on board: appreciate recs #Right knee pain States it is in the internal, posterior right knee Obtain x-ray right knee #Chronic atrial fibrillation on Coumadin Continue rate control with carvedilol Holding Coumadin due to supratherapeutic INR #Supratherapeutic INR Hold Coumadin Check INR daily #Hypothyroidism Continue home levothyroxine #Asthma Continue home Spiriva, albuterol, montelukast #HLD Continue statin
--- NOTE | 2020-05-22 19:59 | PN ---
Physical Exam: SUBJECTIVE: Patient seen and examined at bedside. Denies any complaints. Resting comfortably in bed. OBJECTIVE: Vital Signs Period Temp Pulse Resp BP Sys/Goldberg Pulse Ox Last 24 Hr 98.1 F-99 F 102-116 18-22 103-144/58-79 93-98 GENERAL: NAD HEAD: Normal with no signs of trauma. EYES: EOMI Sclera Clear ENT: MMM LUNGS: Clear to auscultation bilaterally HEART: GREGORY, Irregularly irregular Chest: Sternotomy scar ABDOMEN: Soft, nontender, nondistended. EXTREMITIES: No CCE PSYCH: Normal mood, normal affect. Laboratory Results - last 24 hr 05/21/20 05/21/20 05/22/20 15:00 21:23 06:30 WBC 5.3 RBC 3.42 L Hgb 9.7 L Hct 30.0 L MCV 87.7 MCH 28.5 MCHC 32.5 RDW 18.3 H Plt Count 135 D MPV 8.5 Absolute Neuts (auto) 4.1 Neutrophils % 78.6 Lymphocytes % 9.5 D Monocytes % 10.8 H Eosinophils % 0.5 D Basophils % 0.6 Nucleated RBC % 0 PT with INR INR Sodium Potassium Chloride Carbon Dioxide Anion Gap BUN Creatinine Est GFR (CKD-EPI)AfAm Est GFR (CKD-EPI)NonAf Random Glucose Hemoglobin A1c % Calcium Magnesium Creatine Kinase 36 Troponin I < 0.02 B-Natriuretic Peptide Triglycerides Cholesterol Total LDL Cholesterol HDL Cholesterol TSH COVID-19 ([place]) Not detected 05/22/20 05/22/20 05/22/20 06:30 06:30 06:30 WBC RBC Hgb Hct MCV MCH MCHC RDW Plt Count MPV Absolute Neuts (auto) Neutrophils % Lymphocytes % Monocytes % Eosinophils % Basophils % Nucleated RBC % PT with INR 43.90 H INR 3.67 H Sodium 143 Potassium 3.6 Chloride 104 Carbon Dioxide 35 H Anion Gap 4 L BUN 26.9 H Creatinine 1.1 Est GFR (CKD-EPI)AfAm 51.91 Est GFR (CKD-EPI)NonAf 44.79 Random Glucose 81 Hemoglobin A1c % 5.2 Calcium 8.0 L Magnesium 1.9 Creatine Kinase 23 L Troponin I < 0.02 B-Natriuretic Peptide 1791.1 H Triglycerides 83 Cholesterol 103 Total LDL Cholesterol 54 HDL Cholesterol 44 TSH 4.50 H COVID-19 ([place]) Active Medications Generic Name Dose Route Start Last Admin Trade Name Freq PRN Reason Stop Dose Admin Albuterol Sulfate 2 puff 05/21/20 19:00 05/22/20 09:00 Ventolin Hfa Inhaler - IH 2 puff Q4H PRN Administration SHORTNESS OF BREATH Atorvastatin Calcium 10 mg 05/21/20 22:00 05/21/20 22:01 Lipitor - PO 10 mg HS LAE Administration Carvedilol 12.5 mg 05/21/20 22:00 05/22/20 09:05 Coreg - PO 12.5 mg BID ALE Administration Famotidine 10 mg 05/22/20 10:00 05/22/20 09:05 Acid Strickler Attendant PO 10 mg DAILY ALE Administration Furosemide 40 mg 05/22/20 06:00 05/22/20 16:16 Lasix Injection - IVPUSH 40 mg BIDLASIX ALE Administration Levothyroxine Sodium 25 mcg 05/22/20 07:00 05/22/20 06:16 Synthroid - PO 25 mcg ACBK ALE Administration Montelukast Sodium 10 mg 05/21/20 22:00 05/21/20 22:01 Singulair - PO 10 mg HS ALE Administration Nitroglycerin 0.4 mg 05/21/20 18:47 Nitrostat - SL Q5M PRN FOR CHEST PAIN Tiotropium [place] 2 puff 05/22/20 10:00 05/22/20 10:10 Spiriva Respimat IH 2 puff DAILY ALE Administration ASSESSMENT/PLAN: 10-year-old female with history of HTN, HLD, aortic dissection status post repair, mitral regurg with bovine valve, permanent A. fib on Coumadin, diastolic heart failure, asthma, chronic upper posterior thigh wound presented with dyspnea, orthopnea, inability to ambulate, and knee pain, found to be in CHF exacerbation. #Acute on Chronic CHF exacerbation -CXR Chronic bibasilar changes. BNP 2537 Continue IV Lasix 40 mg BID, switch to daily IV tomorrow Troponin downtrended Cardiology on board: Appreciate recommendations Continue Coreg #NSTEMI -troponins downtrended -likely type II in setting of demand ischemia -cardiology on board Dr Navarro---> Continue carvedilol 12.5 bid, resume cozaar 25 qd as hemodynamics tolerate, Zocor 20 qhs -01/28/2020 Echo @ [facility]: Normal LV size and fxn LVEF 65-70%, mild decreased RV fxn, tr AR, normal functioning bioprosthetic MV replacement. Most recent office visits at [facility] 02/05/2019 and 05/09/2020 reviewed #Right knee pain States it is in the internal, posterior right knee X-ray right knee---> suprapatellar joint effusion. If symptoms persist, will consult ortho. # Atrial fibrillation Continue rate control with carvedilol Holding Coumadin due to supratherapeutic INR #Hypothyroidism Continue home levothyroxine #Asthma Continue home Spiriva, albuterol, montelukast #HLD Continue statin #DVT ppx: Holding Coudmadin as INR > 3.0 Visit type - Emergency Visit Emergency Visit: Yes ED Registration Date: 05/21/20 Care time: The patient presented to the Emergency Department on the above date and was hospitalized for further evaluation of their emergent condition. - New Patient This patient is new to me today: No - Critical Care Critical Care patient: No - Discharge Referral Referred to [facility] Med P.C.: No - Medication Review Med list reviewed for High Risk Meds patients 65 and older: Yes ATTENDING PHYSICIAN STATEMENT I saw and evaluated the patient. I reviewed the resident's note and discussed the case with the resident. I agree with the resident's findings and plan as documented. SUBJECTIVE: OBJECTIVE: ASSESSMENT AND PLAN:
[2020-05-22] MEDS: MONTELUKAST NA 10 MG TABLET PO SCH (22:12)
[2020-05-22] MEDS: ATORVASTATIN CA 10 MG TABLET (FP) PO SCH (22:12)
[2020-05-23] MEDS: FUROSEMIDE 40 MG/4 ML INJECTABLE VIAL IVPUSH SCH (07:00)
[2020-05-23] MEDS: LEVOTHYROXINE NA 25 MCG TABLET (FP) PO SCH (07:05)
[2020-05-23 07:54] LABS: HEMATOCRIT 28.6 % (32.4-45.2); HEMOGLOBIN 9.4 GM/dL (10.7-15.3); MCH 29.1 pg (25.7-33.7); MCHC 32.8 g/dl (32.0-36.0); MEAN CELL VOLUME 88.6 fl (80-96); MEAN PLT VOLUME 8.7 fl (7.5-11.1); PLATELET COUNT 130 K/MM3 (134-434); RBC 3.23 M/mm3 (3.60-5.2); RDW 17.8 % (11.6-15.6); WHITE BLOOD COUNT 6.2 K/mm3 (4.0-10.0)
[2020-05-23 08:21] LABS: ALBUMIN 2.4 g/dl (3.4-5.0); BILIRUBIN,TOTAL 1.4 mg/dL (0.2-1); BLOOD UREA NITROGEN 24.3 mg/dL (7-18); CALCIUM 8.6 mg/dL (8.5-10.1); PHOSPHOROUS 3.2 mg/dL (2.5-4.9); POTASSIUM 3.3 mmol/L (3.5-5.1); TOT PROT 5.6 g/dl (6.4-8.2)
[2020-05-23] MEDS: CARVEDILOL 12.5 MG TABLET (FP) PO SCH ×2 (09:07→22:06)
[2020-05-23] MEDS: TIOTROPIUM BROMIDE 2.5 MCG (SPIRIVA) RESPIMAT INHALER IH SCH (09:08)
[2020-05-23] MEDS: FAMOTIDINE 10 MG TABLET PO SCH (09:08)
--- NOTE | 2020-05-23 11:31 | PN ---
Physical Exam: SUBJECTIVE: Patient seen and examined at bedside. Patient denies acute complaints. OBJECTIVE: Vital Signs Period Temp Pulse Resp BP Sys/Goldberg Pulse Ox Last 24 Hr 97.9 F-100 F 91-115 18-20 96-137/57-74 93-96 GENERAL: The patient is awake, alert, and fully oriented, in no acute distress. HEAD: Normocephalic, atraumatic. EYES: PERRL, extraocular movements intact, sclera anicteric, conjunctiva clear. ENT: Oropharynx clear, without erythema or exudates. Moist mucous membranes. NECK: Trachea midline, full range of motion. Supple without lymphadenopathy. LUNGS: Breath sounds equal, clear to auscultation bilaterally. No wheezes, no crackles. No accessory muscle use. HEART: Regular rate and rhythm. S1, S2 without murmur, rub or gallop. ABDOMEN: Soft, nondistended, nontender to light and deep palpation x4 quadrants. No rebound tenderness, no guarding. Normoactive bowel sounds x4 quadrants. No hepatosplenomegaly, no masses appreciated. EXTREMITIES: 2+ radial, dorsalis pedis pulses bilaterally. Warm, well-perfused. No lower extremity edema bilaterally. NEUROLOGICAL: Cranial nerves II through XII grossly intact. Normal speech. No gross focal deficits. PSYCH: Normal mood, normal affect upon my encounter. SKIN: Warm, dry. Laboratory Results - last 24 hr 05/21/20 05/23/20 05/23/20 15:00 05:58 05:58 WBC 6.2 RBC 3.23 L Hgb 9.4 L Hct 28.6 L MCV 88.6 MCH 29.1 MCHC 32.8 RDW 17.8 H Plt Count 130 L MPV 8.7 Sodium 143 Potassium 3.3 L Chloride 102 Carbon Dioxide 37 H Anion Gap 4 L BUN 24.3 H Creatinine 1.0 Est GFR (CKD-EPI)AfAm 58.25 Est GFR (CKD-EPI)NonAf 50.26 Random Glucose 81 Calcium 8.6 Phosphorus 3.2 Magnesium 2.0 Total Bilirubin 1.4 H AST 20 ALT 11 L Alkaline Phosphatase 64 Total Protein 5.6 L Albumin 2.4 L COVID-19 ([place]) Not detected Active Medications Generic Name Dose Route Start Last Admin Trade Name Freq PRN Reason Stop Dose Admin Albuterol Sulfate 2 puff 05/21/20 19:00 05/22/20 09:00 Ventolin Hfa Inhaler - IH 2 puff Q4H PRN Administration SHORTNESS OF BREATH Atorvastatin Calcium 10 mg 05/21/20 22:00 05/22/20 22:12 Lipitor - PO 10 mg HS ALE Administration Carvedilol 12.5 mg 05/21/20 22:00 05/23/20 09:07 Coreg - PO 12.5 mg BID ALE Administration Famotidine 10 mg 05/22/20 10:00 05/23/20 09:08 Acid [employer] Tooling Machine Operator PO 10 mg DAILY ALE Administration Furosemide 40 mg 05/24/20 10:00 Lasix Injection - IVPUSH DAILY ALE Levothyroxine Sodium 25 mcg 05/22/20 07:00 05/23/20 07:05 Synthroid - PO 25 mcg ACBK ALE Administration Montelukast Sodium 10 mg 05/21/20 22:00 05/22/20 22:12 Singulair - PO 10 mg HS ALE Administration Nitroglycerin 0.4 mg 05/21/20 18:47 Nitrostat - SL Q5M PRN FOR CHEST PAIN Potassium Chloride 40 meq 05/23/20 11:28 Potassium Chloride Oral Liquid PO 05/23/20 11:29 ONCE ONE Tiotropium [place] 2 puff 05/22/20 10:00 05/23/20 09:08 Spiriva Respimat IH 2 puff DAILY ALE Administration ASSESSMENT/PLAN: Patient is an 89 year old female with history of hypertension, hyperlipidemia, aortic dissection (s/p repair), mitral valve (bovine) replacement, Afib (on Coumadin), HFrEf, admitted for CHF exacerbation. CHF exacerbation -Most recent transthoracic ECHO (12/2019) revelaed Normal left ventricuar size and funciton EF 65-70%. -Continue Lasix 40mg IV daily -Continue Coreg 12.5 BID -Cardiology recommendations appreciated NSTEMI -Troponins peaked at 1.76 Likely type II in setting of CHF exacerbation increased demand -Cardiology recommendations appreciated Normocytic anemia -Follow iron studies, reticulocyte count History of Afib -INR therapeutic. Will reinstate home Warfarin -Follow INR Right knee pain -Radiograph right knee reveals suprapatellar joint effusion. Will consult orthopedic surgery (Dr. Pastor). -Physical therapy evaluation History of Hypothyroidism -Continue home Levothyroxine History of Asthma -Currently not in exacerbation -Continue home Spiriva, Albuterol, Montelukast History of Hyperlipidemia -Continue home Atorvastatin FEN -No IV fluids indicated -Hypokalemia repleted. Follow BMP -Sodium modified diet Prophylaxis -Warfarin Disposition -Continue care in Telemetry floor. Visit type - Emergency Visit Emergency Visit: Yes ED Registration Date: 05/21/20 Care time: The patient presented to the Emergency Department on the above date and was hospitalized for further evaluation of their emergent condition. - New Patient This patient is new to me today: Yes Date on this admission: 05/23/20 - Critical Care Critical Care patient: No - Discharge Referral Referred to [facility] Med P.C.: No - Medication Review Med list reviewed for High Risk Meds patients 65 and older: Yes ATTENDING PHYSICIAN STATEMENT I saw and evaluated the patient. I reviewed the resident's note and discussed the case with the resident. I agree with the resident's findings and plan as documented. SUBJECTIVE: OBJECTIVE: ASSESSMENT AND PLAN:
--- NOTE | 2020-05-23 12:07 | ECHO ---
Name: CRISTO MONAHAN E Exam:Adult Echocardiogram Study Date: 05/23/2020 10:18 AM Age: 89 yrs Reason For Study: LV Function Height: 62 in Weight: 138 lb BSA: 1.6 m2 MMode/2D Measurements & Calculations IVSd: 1.1 cm Ao root diam: 3.5 cm LVIDd: 3.5 cm LA dimension: 3.6 cm LVIDs: 2.7 cm LVPWd: 1.3 cm EDV(Teich): 52.0 ml LVOT diam: 2.0 cm ESV(Teich): 28.2 ml LAV(MOD-sp4): 60.6 ml LAV (MOD-bp): 87.2 ml Doppler Measurements & Calculations MV V2 max: 211.3 cm/sec MV E max ney: 204.0 cm/sec MV max P.9 mmHg MV A max ney: 110.5 cm/sec MV V2 mean: 109.6 cm/sec MV E/A: 1.8 MV mean P.4 mmHg MV dec time: 0.11 sec MV V2 VTI: 46.5 cm Ao V2 max: 126.7 cm/sec AI max nye: 336.3 cm/sec Ao max P.4 mmHg AI max P.2 mmHg AI P1/2t: 294.2 msec AI dec slope: 334.8 cm/sec2 SINDI(V,D): 1.4 cm2 LV V1 max P.3 mmHg MR max ney: 471.0 cm/sec LV V1 max: 58.0 cm/sec MR max P.0 mmHg TR max ney: 286.9 cm/sec PA V2 max: 95.0 cm/sec TR max P.0 mmHg PA max P.6 mmHg Med Peak E' Ney: 4.9 cm/sec PI Vmax: 153.1 cm/sec Med E/e': 41.7 Lat Peak E' Ney: 5.4 cm/sec Lat E/e': 37.5 Procedure A complete two-dimensional transthoracic echocardiogram was performed (2D, M-mode, Doppler and color flow Doppler). The patient was in atrial fibrillation with controlled ventricular rate during the exam. Left Ventricle The left ventricular size, thickness and function are normal. Right Ventricle The right ventricle is normal in size and function. Atria The left atrium is moderately dilated. Right atrial size is normal. 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 Prosthetic mitral valve peak and/or mean gradients are normal. Small lateral paravalvualr leak. Tricuspid Valve The tricuspid valve is normal in structure and function. There is mild tricuspid regurgitation. Right ventricular systolic pressure is elevated at 43 mmhg. There is mild pulmonary hypertension. Aortic Valve There is mild aortic sclerosis.;. No hemodynamically significant valvular aortic stenosis. Mild aorti c regurgitation. Pulmonic Valve The pulmonic valve is normal in structure and function. Trace pulmonic valvular regurgitation. Great Vessels The aortic root is normal size. Pericardium/Pleura There is a pleural effusion present. Interpretation Summary There is a bioprosthetic mitral valve with normal function. Small lateral paravalvualr leak. Prosthetic mitral valve peak and/or mean gradients are normal. The left ventricular size, thickness and function are normal The right ventricle is normal in size and function. There is mild pulmonary hypertension. There is a pleural effusion present. Ivan Troy 05/23/2020 12:06 PM
--- NOTE | 2020-05-23 12:41 | PN ---
Teaching Attending Note Name of Resident: Naseem Evans ATTENDING PHYSICIAN STATEMENT I saw and evaluated the patient. I reviewed the resident's note and discussed the case with the resident. I agree with the resident's findings and plan as documented. SUBJECTIVE: Seen and examined at bedside. Feeling better today. Right knee x-ray shows knee effusion. Ortho consulted, OBJECTIVE Last Vital Signs Temp Pulse Resp BP Pulse Ox 98.7 F 96 H 18 96/57 L 96 05/23/20 08:50 05/23/20 08:50 05/23/20 08:50 05/23/20 08:50 05/23/20 10:00 PE: Per resident note Labs/Imaging: reviewed ASSESSMENT/PLAN 10-year-old female with history of HTN, HLD, aortic dissection status post repair, mitral regurg with bovine valve, permanent A. fib on Coumadin, diastolic heart failure, asthma, chronic upper posterior thigh wound presented with dyspnea, orthopnea, inability to ambulate, and knee pain, found to be in CHF exacerbation. #Acute on chronic diastolic CHF exacerbation IV Lasix 40 mg daily Troponin normalized Cardiology on board: Appreciate recommendations Continue Coreg #NSTEMI -troponins downtrended -likely type II in setting of demand -cardiology on board: appreciate recs #Normocytic anemia -anemia workup #Right knee pain with effusion Ortho consulted #Chronic atrial fibrillation on Coumadin Continue rate control with carvedilol Holding Coumadin due to supratherapeutic INR #Supratherapeutic INR Hold Coumadin Check INR daily #Hypothyroidism Continue home levothyroxine #Asthma Continue home Spiriva, albuterol, montelukast #HLD Continue statin
[2020-05-23] MEDS ORDERED: POTASSIUM CHLORIDE ORAL LIQUID 20 MEQ/15 ML PO ONE (12:45)
--- NOTE | 2020-05-23 12:53 | PN ---
Progress Note, Physician Chief Complaint: Events noted Not in distress History of Present Illness: Patient was seen and examined. Awake and alert. Chart was reviewed Denies chest pain, SOB or palpitations - Current Medication List Current Medications: Active Medications Albuterol Sulfate (Ventolin Hfa Inhaler -) 2 puff IH Q4H PRN PRN Reason: SHORTNESS OF BREATH Last Admin: 05/22/20 09:00 Dose: 2 puff Documented by: Atorvastatin Calcium (Lipitor -) 10 mg PO [facility] Last Admin: 05/22/20 22:12 Dose: 10 mg Documented by: Carvedilol (Coreg -) 12.5 mg PO BID [facility] Last Admin: 05/23/20 09:07 Dose: 12.5 mg Documented by: Famotidine (Acid Wool Fleece Grader) 10 mg PO DAILY [facility] Last Admin: 05/23/20 09:08 Dose: 10 mg Documented by: Furosemide (Lasix Injection -) 40 mg IVPUSH DAILY [facility] Levothyroxine Sodium (Synthroid -) 25 mcg PO ACBK [facility] Last Admin: 05/23/20 07:05 Dose: 25 mcg Documented by: Montelukast Sodium (Singulair -) 10 mg PO [facility] Last Admin: 05/22/20 22:12 Dose: 10 mg Documented by: Nitroglycerin (Nitrostat -) 0.4 mg SL Q5M PRN PRN Reason: FOR CHEST PAIN Tiotropium [place] (Spiriva Respimat) 2 puff IH DAILY [facility] Last Admin: 05/23/20 09:08 Dose: 2 puff Documented by: - Objective Vital Signs: Vital Signs Temperature 98.7 F 05/23/20 08:50 Pulse Rate 96 H 05/23/20 08:50 Respiratory Rate 18 05/23/20 08:50 Blood Pressure 96/57 L 05/23/20 08:50 O2 Sat by Pulse Oximetry (%) 96 05/23/20 10:00 Neck: Yes: Supple Cardiovascular: Yes: Regular Rate and Rhythm, Murmur (2/6 SM), S1, S2 Respiratory: Yes: Diminished Gastrointestinal: Yes: Normal Bowel Sounds, Soft. No: Tenderness Edema: No Labs: CBC, BMP 05/23/20 05:58 05/23/20 05:58 INR, PTT INR 3.67 (0.83-1.09) H 05/22/20 06:30 Problem List - Problems (1) Hypercholesterolemia Code(s): E78.00 - PURE HYPERCHOLESTEROLEMIA, UNSPECIFIED (2) S/P MVR (mitral valve replacement) Code(s): Z95.2 - PRESENCE OF PROSTHETIC HEART VALVE (3) Paravalvular leak of prosthetic heart valve Code(s): T82.03XA - LEAKAGE OF HEART VALVE PROSTHESIS, INITIAL ENCOUNTER (4) Acute kidney injury superimposed on CKD Code(s): N17.9 - ACUTE KIDNEY FAILURE, UNSPECIFIED; N18.9 - CHRONIC KIDNEY DISEASE, UNSPECIFIED (5) Congestive heart failure Code(s): I50.9 - HEART FAILURE, UNSPECIFIED Qualifiers: Heart failure type: diastolic Heart failure chronicity: acute on chronic Qualified Code(s): I50.33 - Acute on chronic diastolic (congestive) heart failure (6) Demand ischemia Code(s): I24.8 - OTHER FORMS OF ACUTE ISCHEMIC HEART DISEASE (7) Hyperlipidemia Code(s): E78.5 - HYPERLIPIDEMIA, UNSPECIFIED Qualifiers: Hyperlipidemia type: pure hypercholesterolemia Qualified Code(s): E78.00 - Pure hypercholesterolemia, unspecified; E78.0 - Pure hypercholesterolemia (8) Acute on chronic systolic (congestive) heart failure Code(s): I50.23 - ACUTE ON CHRONIC SYSTOLIC (CONGESTIVE) HEART FAILURE (9) Afib Code(s): I48.91 - UNSPECIFIED ATRIAL FIBRILLATION Qualifiers: Atrial fibrillation type: permanent Qualified Code(s): I48.21 - Permanent atrial fibrillation (10) HTN (hypertension) Code(s): I10 - ESSENTIAL (PRIMARY) HYPERTENSION Qualifiers: Hypertension type: essential hypertension Qualified Code(s): I10 - Essential (primary) hypertension Assessment/Plan 1. Acute on chronic diastolic heart failure with demand ischemia 2. 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 Thoracic aortic dissection s/p repair 4. Permanent AF on Coumadin with supratherapeutic INR 5. COPD 6. Acute on CKD PLAN: 1. IV diuresis - Lasix 40 mg IV QD with monitoring renal function and electrolytes 2. Continue Carvedilol 12.5 mg BID. Resume Losartan 25 mg QD as hemodynamics tolerate. Continue Lipitor 10 mg QHS 3. Coumadin per INR 2-3 with GI protection 4. Troponin only elevated once to 1.76 and then less than 0.02 ?accuracy 5. Eventual follow up with Dr. Kyler Larsen at [facility] upon discharge 6. No specific intervention needed for the bioprosthetic valve at this time, but should be followed by her medical service technician as outpatient Mynor Govea MD
[2020-05-23 14:09] LABS: INR 2.45 (0.83-1.09); PROTHROMBIN TIME (PATIENT) 29.2 SEC (9.7-13.0)
[2020-05-23 15:42] VITALS: BMI 24.7
[2020-05-23] MEDS ORDERED: WARFARIN NA 5 MG TABLET PO SCH (18:00)
--- NOTE | 2020-05-23 18:27 | CON.ORTH ---
Consult Consult Specialty:: Orthopedic Surgery - History of Present Illness Chief Complaint: Right knee pain History of Present Illness: This is an 89 yo F with PMHx of HTN, CHF, Afib on coumadin who presented to ED for bilateral leg swelling and inability to walk. Patient states today most of her pain is to right knee. She notes she has been experiencing right knee pain for several weeks, worsening over the past few days. States she was having difficulty ambulating due to the pain. Patient denies any particular trauma or injury prior to onset of pain. Pain is mostly to medial and lateral aspects of knee. Worse with flexion and standing from a seated position. Patient states she ambulates with a walker with seat at baseline. Denies any previous injury to this knee in the past. Denies any numbness, tingling to toes. - History Source History Provided By: Patient - Past Medical History Cardio/Vascular: Yes: AFIB, Aneurysm, CHF, HTN, Hyperlipdemia, Mitral Insufficiency, Other Pulmonary: Yes: Asthma ...: No Psych: Yes: Anxiety, Depression Endocrine: Yes: Hypothyroidism Additional Medical History: MRSA infection of sternotomy site. Right diaphragm paralysis following thoracotomy - Past Surgical History Past Surgical History: Yes: Cataract Removal, Cholecystectomy, Valve Replacement - Alcohol/Substance Use Hx Alcohol Use: Yes (rarely) History of Substance Use: reports: None - Smoking History Smoking history: Former smoker Have you smoked in the past 12 months: No Aproximately how many cigarettes per day: 0 If you are a former smoker, when did you quit?: 1986 - Social History Usual Living Arrangement: Alone ADL: Family Assistance History of Recent Travel: Yes Home Medications - Allergies Allergies/Adverse Reactions: Allergies Allergy/AdvReac Type Severity Reaction Status Date / Time No Known Allergies Allergy Verified 05/21/20 14:23 - Home Medications Home Medications: Ambulatory Orders Carvedilol [Coreg -] 12.5 mg PO BID #30 tablet 05/26/17 Famotidine [Pepcid -] 20 mg PO BID tablet 05/26/17 Simvastatin [Zocor -] 20 mg PO HS 06/21/17 Montelukast Na [Singulair -] 10 mg PO HS 01/10/19 Tiotropium [place] [Spiriva] 1 inh PO DAILY 01/13/19 Potassium Chloride [K-Dur -] 20 meq PO DAILY #30 tablet.er 01/14/19 Warfarin Na [Coumadin -] 5 mg PO SUTUTHSA 04/23/20 Warfarin Na [Coumadin] 2.5 mg PO MOWEFR 04/23/20 Acetaminophen [Tylenol Extra Strength] 1,000 mg PO TID PRN 05/21/20 Furosemide [Lasix -] 40 mg PO DAILY 05/21/20 Family Medical History Family Hx Nuerologic Problems: Father (cva) Other Family History: father - gastric cancer Review of Systems Findings/Remarks: Right knee pain Physical Exam for Ortho Vital Signs: Vital Signs Temperature 98.3 F 05/23/20 14:01 Pulse Rate 98 H 05/23/20 14:01 Respiratory Rate 20 05/23/20 14:01 Blood Pressure 100/60 05/23/20 14:01 O2 Sat by Pulse Oximetry (%) 96 05/23/20 10:00 Constitutional: Yes: Well Nourished, No Distress, Calm Labs: CBC, BMP 05/23/20 05:58 05/23/20 05:58 INR, PTT INR 2.45 (0.83-1.09) H 05/23/20 13:31 - Lower Extremity Knee: Yes: Right (No skin lesions. Mild effusion. Pain with flexion of the knee. Tenderness to palpation of medial more than lateral joint lines. NVID.) Imaging - Results X-ray: Report Reviewed, Image Reviewed (3 views of left knee shows degenerative changes. No fracture, dislocation or acute injury.) Ultrasound: Report Reviewed (US of right LE negative for DVT), Image Reviewed Assessment/Plan 89 yo F with PMHx of HTN, CHF, Afib on coumadin who presented to ED for bilateral leg swelling and inability to walk. -Patient's ongoing symptoms, PE and imaging are most suggestive of DJD -Recommend pain control while inpatient -Continue PT -WBAT with assistive device -F/u as outpatient for further treatment -Please re-consult as needed
[2020-05-23] MEDS: MONTELUKAST NA 10 MG TABLET PO SCH (22:06)
[2020-05-23] MEDS: ATORVASTATIN CA 10 MG TABLET (FP) PO SCH (22:06)
[2020-05-24 07:35] LABS: HEMATOCRIT 29.7 % (32.4-45.2); HEMOGLOBIN 9.8 GM/dL (10.7-15.3); MCHC 32.9 g/dl (32.0-36.0); MEAN CELL VOLUME 88.3 fl (80-96); MEAN PLT VOLUME 8.5 fl (7.5-11.1); PLATELET COUNT 138 K/MM3 (134-434); RBC 3.37 M/mm3 (3.60-5.2); RDW 17.8 % (11.6-15.6); WHITE BLOOD COUNT 5.7 K/mm3 (4.0-10.0)
[2020-05-24] MEDS: LEVOTHYROXINE NA 25 MCG TABLET (FP) PO SCH (07:37)
[2020-05-24 07:43] LABS: ALBUMIN 2.4 g/dl (3.4-5.0); BILIRUBIN,TOTAL 1.3 mg/dL (0.2-1); BLOOD UREA NITROGEN 22.4 mg/dL (7-18); CALCIUM 8.5 mg/dL (8.5-10.1); CREATININE 0.9 mg/dL (0.55-1.3); PHOSPHOROUS 2.2 mg/dL (2.5-4.9); POTASSIUM 3.9 mmol/L (3.5-5.1); TOT PROT 5.9 g/dl (6.4-8.2)
[2020-05-24 07:47] LABS: INR 2.57 (0.83-1.09); PROTHROMBIN TIME (PATIENT) 30.6 SEC (9.7-13.0)
--- NOTE | 2020-05-24 09:30 | PN ---
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 She denies associated chest pain, palpitations, near or true syncope, orthopnea, PND. She has not been out of the house for months due to COVID except for doctor visits. She is going to wound care for her left post thigh wound. Admits to adding salt to diet, reports medication compliance and denies NSAID use. - Current Medication List Current Medications: Active Medications Albuterol Sulfate (Ventolin Hfa Inhaler -) 2 puff IH Q4H PRN PRN Reason: SHORTNESS OF BREATH Last Admin: 05/22/20 09:00 Dose: 2 puff Documented by: Atorvastatin Calcium (Lipitor -) 10 mg PO HS [facility] Last Admin: 05/23/20 22:06 Dose: 10 mg Documented by: Carvedilol (Coreg -) 12.5 mg PO BID [facility] Last Admin: 05/23/20 22:06 Dose: 12.5 mg Documented by: Famotidine (Acid Kettle Operator) 10 mg PO DAILY [facility] Last Admin: 05/23/20 09:08 Dose: 10 mg Documented by: Furosemide (Lasix Injection -) 40 mg IVPUSH DAILY [facility] Levothyroxine Sodium (Synthroid -) 25 mcg PO ACBK [facility] Last Admin: 05/24/20 07:37 Dose: 25 mcg Documented by: Montelukast Sodium (Singulair -) 10 mg PO HS [facility] Last Admin: 05/23/20 22:06 Dose: 10 mg Documented by: Nitroglycerin (Nitrostat -) 0.4 mg SL Q5M PRN PRN Reason: FOR CHEST PAIN Tiotropium [place] (Spiriva Respimat) 2 puff IH DAILY [facility] Last Admin: 05/23/20 09:08 Dose: 2 puff Documented by: Warfarin Sodium (Coumadin -) 2.5 mg PO [email or web address] ALE Warfarin Sodium (Coumadin -) 5 mg PO [email or web address]@1800 [facility] Last Admin: 05/23/20 17:17 Dose: 5 mg Documented by: - Objective Vital Signs: Vital Signs Temperature 99.1 F 05/24/20 08:45 Pulse Rate 109 H 05/24/20 08:45 Respiratory Rate 20 05/24/20 08:45 Blood Pressure 115/62 05/24/20 08:45 O2 Sat by Pulse Oximetry (%) 92 L 05/24/20 08:45 Constitutional: Yes: No Distress, Calm, Thin Neck: Yes: Supple Cardiovascular: Yes: Pulse Irregular Respiratory: Yes: Regular, Diminished, On Nasal O2 Gastrointestinal: Yes: Normal Bowel Sounds, Soft Edema: No Labs: CBC, BMP 05/24/20 05:52 05/24/20 05:52 INR, PTT INR 2.57 (0.83-1.09) H 05/24/20 05:52 - ....Imaging EKG: Report Reviewed (Tele: afib) Problem List - Problems (1) Acute kidney injury superimposed on CKD Code(s): N17.9 - ACUTE KIDNEY FAILURE, UNSPECIFIED; N18.9 - CHRONIC KIDNEY DISEASE, UNSPECIFIED (2) Congestive heart failure Code(s): I50.9 - HEART FAILURE, UNSPECIFIED Qualifiers: Heart failure type: diastolic Heart failure chronicity: acute on chronic Qualified Code(s): I50.33 - Acute on chronic diastolic (congestive) heart failure (3) Afib Code(s): I48.91 - UNSPECIFIED ATRIAL FIBRILLATION Qualifiers: Atrial fibrillation type: permanent Qualified Code(s): I48.21 - Permanent atrial fibrillation (4) Bilateral lower extremity edema Code(s): R60.0 - LOCALIZED EDEMA (5) Elevated INR Code(s): R79.1 - ABNORMAL COAGULATION PROFILE (6) HTN (hypertension) Code(s): I10 - ESSENTIAL (PRIMARY) HYPERTENSION Qualifiers: Hypertension type: essential hypertension Qualified Code(s): I10 - Essential (primary) hypertension (7) Hx of mitral valve repair Code(s): Z98.890 - OTHER SPECIFIED POSTPROCEDURAL STATES (8) Demand ischemia Code(s): I24.8 - OTHER FORMS OF ACUTE ISCHEMIC HEART DISEASE (9) Hyperlipidemia Code(s): E78.5 - HYPERLIPIDEMIA, UNSPECIFIED Qualifiers: Hyperlipidemia type: pure hypercholesterolemia Qualified Code(s): E78.00 - Pure hypercholesterolemia, unspecified; E78.0 - Pure hypercholesterolemia Assessment/Plan 01/11/2019 Echo: Normal LV size with mild cLVH and normal LV fxn, LVEF 60-65%, normal RV size and fxn, normal biatrial sizes, bioprosthetic MV with MR, mod TR RVSP 39 mmHg, mild-mod AR, tr-mild IA, large pleural effusion 05/30/2016 Echo: Mildly dilated LV with mild cLVH, severe globcal HK of LV, mild decreased RV fxn, bioMVR, mild MR, mild TR RVSP 30-40 mmHg, mild-mod AR, mild IA, large pleural effusion 1. Acute on chronic diastolic heart failure with demand ischemia 2. 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 Thoracic aortic dissection s/p repair 4. Permanent AF on Coumadin with therapeutic INR 5. COPD 6. Acute on CKD resolved PLAN: 1. Resume oral diuresis at home dose of Lasix 40 mg po QD with monitoring diuretic response, renal function and electrolytes 2. Continue Carvedilol 12.5 mg BID. Resume Losartan 25 mg QD as hemodynamics tolerate. Continue Lipitor 10 mg QHS 3. Coumadin per INR 2-3 with GI protection 4. Troponin only elevated once to 1.76 and then less than 0.02 ?accuracy 5. Eventual follow up with Dr. Kyler Larsen at [facility] upon discharge 6. No specific intervention needed for the bioprosthetic valve at this time, but should be followed by her seismic prospecting supervisor as outpatient
[2020-05-24] MEDS ORDERED: PT OWN MED DRAWER 7, Y5N ONE (09:42)
[2020-05-24] MEDS: CARVEDILOL 12.5 MG TABLET (FP) PO SCH ×2 (09:45→21:13)
[2020-05-24] MEDS: FAMOTIDINE 10 MG TABLET PO SCH (09:46)
[2020-05-24] MEDS: TIOTROPIUM BROMIDE 2.5 MCG (SPIRIVA) RESPIMAT INHALER IH SCH (09:47)
[2020-05-24] MEDS ORDERED: FUROSEMIDE 40 MG/4 ML INJECTABLE VIAL IVPUSH SCH (10:00)
--- NOTE | 2020-05-24 13:30 | PN ---
Teaching Attending Note Name of Resident: Simone Nickerson ATTENDING PHYSICIAN STATEMENT I saw and evaluated the patient. I reviewed the resident's note and discussed the case with the resident. I agree with the resident's findings and plan as documented. SUBJECTIVE: Seen and examined at bedside. Patient has 2+ pitting edema to ankles, significa ntly improved from previous. Patient refuses to go to rehab despite being unable to ambulate. Will discuss with case management and family regarding safe discharge plan. Will receive 1 additional dose of IV Lasix today with switch to oral tomorrow OBJECTIVE Last Vital Signs Temp Pulse Resp BP Pulse Ox 99.1 F 109 H 20 115/62 92 L 05/24/20 08:45 05/24/20 08:45 05/24/20 08:45 05/24/20 08:45 05/24/20 09:00 PE: Per resident note Labs/Imaging: reviewed ASSESSMENT/PLAN 10-year-old female with history of HTN, HLD, aortic dissection status post repair , mitral regurg with bovine valve, permanent A. fib on Coumadin, diastolic heart failure, asthma, chronic upper posterior thigh wound presented with dyspnea, orthopnea, inability to ambulate, and knee pain, found to be in CHF exacerbation. #Acute on chronic diastolic CHF exacerbation IV Lasix 40 mg daily today switch to PO tomorrow Troponin normalized Cardiology on board: Appreciate recommendations Continue Coreg #NSTEMI -troponins downtrended -likely type II in setting of demand -cardiology on board: appreciate recs #Iron deficiency anemia -check FOBT -outpatient cscope #Right knee pain with effusion Ortho consulted #Chronic atrial fibrillation on Coumadin Continue rate control with carvedilol Holding Coumadin due to supratherapeutic INR #Supratherapeutic INR: resolved -restart home coumadin #Hypothyroidism Continue home levothyroxine #Asthma Continue home Spiriva, albuterol, montelukast #HLD Continue statin
[2020-05-24] MEDS: AMINO ACIDS/PROTEIN HYDROLYS 30 ML LIQUID.PKT PO SCH (16:53)
[2020-05-24] MEDS ORDERED: WARFARIN NA 2.5 MG TABLET PO SCH (18:00)
[2020-05-24] MEDS: ATORVASTATIN CA 10 MG TABLET (FP) PO SCH (21:13)
[2020-05-24] MEDS: MONTELUKAST NA 10 MG TABLET PO SCH (21:13)
--- NOTE | 2020-05-24 21:47 | PN ---
Physical Exam: SUBJECTIVE: Patient seen and examined at bedside. No acute events overnight. OBJECTIVE: Vital Signs Period Temp Pulse Resp BP Sys/Goldberg Pulse Ox Last 24 Hr 97.9 F-99.1 F 96-120 18-20 114-120/54-76 92-97 GENERAL: NAD HEAD: Normal with no signs of trauma. EYES: EOMI Sclera Clear ENT: MMM LUNGS: CTAB HEART: GREGORY, Irregularly irregular Chest: Sternotomy scar ABDOMEN: Soft, nontender, nondistended. EXTREMITIES: No CCE PSYCH: Normal mood, normal affect. Laboratory Results - last 24 hr 05/23/20 05/24/20 05/24/20 13:31 05:52 05:52 WBC 5.7 RBC 3.37 L Hgb 9.8 L Hct 29.7 L MCV 88.3 MCH 29.0 MCHC 32.9 RDW 17.8 H Plt Count 138 MPV 8.5 PT with INR 30.60 H INR 2.57 H Sodium Potassium Chloride Carbon Dioxide Anion Gap BUN Creatinine Est GFR (CKD-EPI)AfAm Est GFR (CKD-EPI)NonAf Random Glucose Calcium Phosphorus Magnesium Transferrin 198 Total Bilirubin AST ALT Alkaline Phosphatase Total Protein Albumin 05/24/20 05:52 WBC RBC Hgb Hct MCV MCH MCHC RDW Plt Count MPV PT with INR INR Sodium 141 Potassium 3.9 Chloride 101 Carbon Dioxide 37 H Anion Gap 3 L BUN 22.4 H Creatinine 0.9 Est GFR (CKD-EPI)AfAm 66.16 Est GFR (CKD-EPI)NonAf 57.09 Random Glucose 92 Calcium 8.5 Phosphorus 2.2 L Magnesium 2.0 Transferrin Total Bilirubin 1.3 H AST 39 H ALT 21 Alkaline Phosphatase 70 Total Protein 5.9 L Albumin 2.4 L Active Medications Generic Name Dose Route Start Last Admin Trade Name Freq PRN Reason Stop Dose Admin Albuterol Sulfate 2 puff 05/21/20 19:00 05/22/20 09:00 Ventolin Hfa Inhaler - IH 2 puff Q4H PRN Administration SHORTNESS OF BREATH Amino Acids 30 ml 05/24/20 17:30 05/24/20 16:53 Prosource No Carb Liquid Pkt PO 30 ml BID@0800,1730 ALE Administration Atorvastatin Calcium 10 mg 05/21/20 22:00 05/24/20 21:13 Lipitor - PO 10 mg HS ALE Administration Carvedilol 12.5 mg 05/21/20 22:00 05/24/20 21:13 Coreg - PO 12.5 mg BID ALE Administration Famotidine 10 mg 05/22/20 10:00 05/24/20 09:46 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[employer] PO 10 mg DAILY ALE Administration Furosemide 40 mg 05/25/20 10:00 Lasix - PO DAILY ALE Levothyroxine Sodium 25 mcg 05/22/20 07:00 05/24/20 07:37 Synthroid - PO 25 mcg ACBK LAE Administration Montelukast Sodium 10 mg 05/21/20 22:00 05/24/20 21:13 Singulair - PO 10 mg HS ALE Administration Nitroglycerin 0.4 mg 05/21/20 18:47 Nitrostat - SL Q5M PRN FOR CHEST PAIN Tiotropium [place] 2 puff 05/22/20 10:00 05/24/20 09:47 Spiriva Respimat IH 2 puff DAILY ALE Administration Warfarin Sodium 2.5 mg 05/24/20 18:00 05/24/20 18:41 Coumadin - PO 2.5 mg MoWeFr@1800 ALE Administration Warfarin Sodium 5 mg 05/23/20 18:00 05/23/20 17:17 Coumadin - PO 5 mg SuTuThSa@1800 ALE Administration ASSESSMENT/PLAN: Patient is an 89 year old female with history of hypertension, hyperlipidemia, aortic dissection (s/p repair), mitral valve (bovine) replacement, Afib (on Coumadin), HFrEf, admitted for CHF exacerbation. CHF exacerbation -Most recent transthoracic ECHO (12/2019) revealed Normal left ventricuar size and function EF 65-70%. -Continue Lasix 40mg IV daily and will switch to 40 PO tomorrow -Continue Coreg 12.5 BID -Cardiology on board Dr Navarro. NSTEMI -Troponins peaked at 1.76 Likely type II in setting of CHF exacerbation increased demand -Cardiology recommendations appreciated Normocytic anemia -FOBT, hematology outpatient History of Afib -INR therapeutic. C/w Warfarin -Follow INR Right knee pain -Radiograph right knee reveals suprapatellar joint effusion. -Physical therapy evaluation Orth: most suggestive of DJD History of Hypothyroidism -Continue home Levothyroxine History of Asthma -Currently not in exacerbation -Continue home Spiriva, Albuterol, Montelukast History of Hyperlipidemia -Continue home Atorvastatin FEN -No IV fluids indicated -Follow BMP -Sodium modified diet Prophylaxis -Warfarin Disposition -Likely D/C tomorrow. Visit type - Emergency Visit Emergency Visit: Yes ED Registration Date: 05/21/20 Care time: The patient presented to the Emergency Department on the above date and was hospitalized for further evaluation of their emergent condition. - New Patient This patient is new to me today: No - Critical Care Critical Care patient: No - Discharge Referral Referred to [facility] No - Medication Review Med list reviewed for High Risk Meds patients 65 and older: Yes ATTENDING PHYSICIAN STATEMENT I saw and evaluated the patient. I reviewed the resident's note and discussed the case with the resident. I agree with the resident's findings and plan as documented. SUBJECTIVE: OBJECTIVE: ASSESSMENT AND PLAN:
[2020-05-25] MEDS: LEVOTHYROXINE NA 25 MCG TABLET (FP) PO SCH (06:06)
[2020-05-25 06:42] LABS: HEMOGLOBIN 9.6 GM/dL (10.7-15.3); MCH 28.2 pg (25.7-33.7); MCHC 32.1 g/dl (32.0-36.0); MEAN CELL VOLUME 87.9 fl (80-96); MEAN PLT VOLUME 8.2 fl (7.5-11.1); PLATELET COUNT 136 K/MM3 (134-434); RBC 3.41 M/mm3 (3.60-5.2); RDW 17.3 % (11.6-15.6); WHITE BLOOD COUNT 5.4 K/mm3 (4.0-10.0)
[2020-05-25 07:10] LABS: CALCIUM 8.5 mg/dL (8.5-10.1); CREATININE 0.9 mg/dL (0.55-1.3); PHOSPHOROUS 3.3 mg/dL (2.5-4.9); POTASSIUM 3.8 mmol/L (3.5-5.1)
[2020-05-25] MEDS: AMINO ACIDS/PROTEIN HYDROLYS 30 ML LIQUID.PKT PO SCH (09:18)
[2020-05-25] MEDS: CARVEDILOL 12.5 MG TABLET (FP) PO SCH (09:18)
[2020-05-25] MEDS: FAMOTIDINE 10 MG TABLET PO SCH (09:19)
[2020-05-25] MEDS: TIOTROPIUM BROMIDE 2.5 MCG (SPIRIVA) RESPIMAT INHALER IH SCH (09:20)
[2020-05-25] MEDS ORDERED: FUROSEMIDE 40 MG TABLET (FP) PO SCH (10:00)
--- NOTE | 2020-05-25 10:12 | PN ---
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 She denies associated chest pain, palpitations, near or true syncope, orthopnea, PND. Currently OOB in chair awaiting PT. - Current Medication List Current Medications: Active Medications Albuterol Sulfate (Ventolin Hfa Inhaler -) 2 puff IH Q4H PRN PRN Reason: SHORTNESS OF BREATH Last Admin: 05/22/20 09:00 Dose: 2 puff Documented by: Amino Acids (Prosource No Carb Liquid Pkt) 30 ml PO BID@0800,1730 [facility] Last Admin: 05/25/20 09:18 Dose: 30 ml Documented by: Atorvastatin Calcium (Lipitor -) 10 mg PO [facility] Last Admin: 05/24/20 21:13 Dose: 10 mg Documented by: Carvedilol (Coreg -) 12.5 mg PO BID [facility] Last Admin: 05/25/20 09:18 Dose: 12.5 mg Documented by: Famotidine (Acid [employer]) 10 mg PO DAILY [facility] Last Admin: 05/25/20 09:19 Dose: 10 mg Documented by: Furosemide (Lasix -) 40 mg PO DAILY [facility] Last Admin: 05/25/20 09:18 Dose: 40 mg Documented by: Levothyroxine Sodium (Synthroid -) 25 mcg PO ACBK [facility] Last Admin: 05/25/20 06:06 Dose: 25 mcg Documented by: Montelukast Sodium (Singulair -) 10 mg PO [facility] Last Admin: 05/24/20 21:13 Dose: 10 mg Documented by: Nitroglycerin (Nitrostat -) 0.4 mg SL Q5M PRN PRN Reason: FOR CHEST PAIN Tiotropium [place] (Spiriva Respimat) 2 puff IH DAILY [facility] Last Admin: 05/25/20 09:20 Dose: 2 puff Documented by: Warfarin Sodium (Coumadin -) 2.5 mg PO MoWeFr@1800 [facility] Last Admin: 05/24/20 18:41 Dose: 2.5 mg Documented by: Warfarin Sodium (Coumadin -) 5 mg PO SuTuThSa@1800 [facility] Last Admin: 05/23/20 17:17 Dose: 5 mg Documented by: - Objective Vital Signs: Vital Signs Temperature 98 F 05/25/20 09:00 Pulse Rate 98 H 05/25/20 09:00 Respiratory Rate 20 05/25/20 09:00 Blood Pressure 100/58 L 05/25/20 09:00 O2 Sat by Pulse Oximetry (%) 96 05/25/20 09:00 Constitutional: Yes: No Distress, Calm Neck: Yes: Supple Cardiovascular: Yes: Pulse Irregular Respiratory: Yes: Regular, CTA Bilaterally, On Nasal O2 Gastrointestinal: Yes: Normal Bowel Sounds, Soft Edema: No Integumentary: Yes: Venous Stasis Changes Labs: CBC, BMP 05/25/20 05:30 05/25/20 05:30 INR, PTT INR 2.57 (0.83-1.09) H 05/24/20 05:52 - ....Imaging EKG: Report Reviewed (Tele: Rate-controlled afib) Problem List - Problems (1) Acute kidney injury superimposed on CKD Code(s): N17.9 - ACUTE KIDNEY FAILURE, UNSPECIFIED; N18.9 - CHRONIC KIDNEY DIS EASE, UNSPECIFIED (2) Congestive heart failure Code(s): I50.9 - HEART FAILURE, UNSPECIFIED Qualifiers: Heart failure type: diastolic Heart failure chronicity: acute on chronic Qualified Code(s): I50.33 - Acute on chronic diastolic (congestive) heart failure (3) Afib Code(s): I48.91 - UNSPECIFIED ATRIAL FIBRILLATION Qualifiers: Atrial fibrillation type: permanent Qualified Code(s): I48.21 - Permanent atrial fibrillation (4) Bilateral lower extremity edema Code(s): R60.0 - LOCALIZED EDEMA (5) Elevated INR Code(s): R79.1 - ABNORMAL COAGULATION PROFILE (6) HTN (hypertension) Code(s): I10 - ESSENTIAL (PRIMARY) HYPERTENSION Qualifiers: Hypertension type: essential hypertension Qualified Code(s): I10 - Essential (primary) hypertension (7) Hx of mitral valve repair Code(s): Z98.890 - OTHER SPECIFIED POSTPROCEDURAL STATES (8) Demand ischemia Code(s): I24.8 - OTHER FORMS OF ACUTE ISCHEMIC HEART DISEASE (9) Hyperlipidemia Code(s): E78.5 - HYPERLIPIDEMIA, UNSPECIFIED Qualifiers: Hyperlipidemia type: pure hypercholesterolemia Qualified Code(s): E78.00 - Pure hypercholesterolemia, unspecified; E78.0 - Pure hypercholesterolemia Assessment/Plan 01/11/2019 Echo: Normal LV size with mild cLVH and normal LV fxn, LVEF 60-65%, normal RV size and fxn, normal biatrial sizes, bioprosthetic MV with MR, mod TR RVSP 39 mmHg, mild-mod AR, tr-mild IL, large pleural effusion 05/30/2016 Echo: Mildly dilated LV with mild cLVH, severe globcal HK of LV, mild decreased RV fxn, bioMVR, mild MR, mild TR RVSP 30-40 mmHg, mild-mod AR, mild IL, large pleural effusion 1. Acute on chronic diastolic heart failure with demand ischemia 2. 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 Thoracic aortic dissection s/p repair 4. Permanent AF on Coumadin with therapeutic INR 5. COPD 6. Acute on CKD resolved PLAN: 1. Resumed oral diuresis at home dose of Lasix 40 mg po QD with monitoring diuretic response, renal function and electrolytes 2. Continue Carvedilol 12.5 mg BID. Resume Losartan 25 mg QD as hemodynamics tolerate. Continue Lipitor 10 mg QHS 3. Coumadin per INR 2-3 with GI protection 4. Troponin only elevated once to 1.76 and then less than 0.02 ?accuracy 5. Eventual follow up with Dr. Kyler Larsen at [facility] upon discharge 6. No specific intervention needed for the bioprosthetic valve at this time, but should be followed by her brine well operator as outpatient 7. PT as tolerated->SNF
[2020-05-25 11:07] LABS: INR 2.69 (0.83-1.09); PROTHROMBIN TIME (PATIENT) 32.1 SEC (9.7-13.0)
--- NOTE | 2020-05-25 13:18 | PN ---
Teaching Attending Note Name of Resident: Simone Nickerson ATTENDING PHYSICIAN STATEMENT I saw and evaluated the patient. I reviewed the resident's note and discussed the case with the resident. I agree with the resident's findings and plan as documented. SUBJECTIVE: Seen and examined at bedside. Patient is medically cleared for discharge pendin g disposition plan. Case management currently working with family and patient on acceptable plan OBJECTIVE Last Vital Signs Temp Pulse Resp BP Pulse Ox 98 F 98 H 20 100/58 L 96 05/25/20 09:00 05/25/20 09:00 05/25/20 09:00 05/25/20 09:00 05/25/20 09:00 PE: Per resident note Labs/Imaging: reviewed ASSESSMENT/PLAN 10-year-old female with history of HTN, HLD, aortic dissection status post repair, mitral regurg with bovine valve, permanent A. fib on Coumadin, diastolic heart failure, asthma, chronic upper posterior thigh wound presented with dyspnea, orthopnea, inability to ambulate, and knee pain, found to be in CHF exacerbation. #Acute on chronic diastolic CHF exacerbation: resolved home PO lasix 40mg Troponin normalized Cardiology on board: Appreciate recommendations Continue Coreg #NSTEMI -troponins downtrended -likely type II in setting of demand -cardiology on board: appreciate recs #Iron deficiency anemia -check FOBT -outpatient cscope #Unable to ambulate 2/2 right knee pain Ortho consulted: likely 2/2 DJD -PT, pain control, outpt management #Chronic atrial fibrillation on Coumadin Continue rate control with carvedilol cont home coumadin #Supratherapeutic INR: resolved #Hypothyroidism Continue home levothyroxine #Asthma Continue home Spiriva, albuterol, montelukast #HLD Continue statin
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
[2020-05-25 14:10] VITALS: BP 95/60; PULSE 85; TEMP 98.1
[2020-05-25] MEDS ORDERED: BISACODYL 10 MG SUPP.RECT PR ONE (14:30)
== END 2020-05-25 17:35 | DRG 291 ==
LOC: FER 14:10 → J4W 19:00
PROVIDERS: ADMIT Internal Medicine; ATTEND Internal Medicine
DX: I13.0 Hypertensive heart and chronic kidney disease with heart failure and stage 1 through stage 4 chronic kidney disease, or unspecified chronic kidney disease (principal); I50.33 Acute on chronic diastolic (congestive) heart failure; N17.9 Acute kidney failure, unspecified; I48.21 Permanent atrial fibrillation; I24.8 Other forms of acute ischemic heart disease; I48.20 Chronic atrial fibrillation, unspecified; D50.9 Iron deficiency anemia, unspecified; E03.9 Hypothyroidism, unspecified; E78.00 Pure hypercholesterolemia, unspecified; I34.0 Nonrheumatic mitral (valve) insufficiency; F41.8 Other specified anxiety disorders; J98.6 Disorders of diaphragm; S71.101D Unspecified open wound, right thigh, subsequent encounter; M25.461 Effusion, right knee; R79.1 Abnormal coagulation profile; J45.909 Unspecified asthma, uncomplicated; N18.9 Chronic kidney disease, unspecified; Z95.2 Presence of prosthetic heart valve; Z85.3 Personal history of malignant neoplasm of breast; Z79.01 Long term (current) use of anticoagulants
CPT/HCPCS: 36415; 71045-TC-FY; 73562-TC-RT-FY; 80048; 80053; 80061; 81003; 82550; 82728; 83036; 83540; 83550; 83721; 83735; 83880; 84100; 84443; 84466; 84484; 85025; 85027; 85045; 85610; 85730; 93005; 93306-TC; 93970-TC; 94761; 97116-GP; 97161-GP; 99285-25; U0003